=== PATIENT | female | born 1950 | race Caucasian/White ===

== ENCOUNTER 2019-03-23 17:00 | Emergency (ER) | payer MEDICARE, OTHER | END 2019-03-23 21:19 | disposition home or self-care (01) | LOC: ED 17:00 ==

== ENCOUNTER 2019-03-25 14:17 | Emergency (ER) | payer MEDICARE, OTHER ==
--- NOTE | 2019-03-25 15:03 | ERPHSYRPT ---
- History of Present Illness Time Seen by Provider: 03/25/19 14:49 Source: patient Exam Limitations: no limitations Patient Subjective Stated Complaint: pt was leaving home for dr visit. she tripped on braided rug and fell on face. states her r shoulder is painful. and nose hurts. also feels pain in both hips at this time. states that she has previous contractures in her neck and states that her neurologist told her to seek immediate treatment if she ever falls. Triage Nursing Assessment: pt fell at home while getting ready to go to dr appointment Physician History: Pt was getting ready to leave home for a doctor's appointment ( she is getting treated for UTI), when she got stuck in rug tripped over fell an her face, injured her right arm, nose and left ribs, also c/o pain in her neck radiating to her right arm. She denies LOC, severe headaches, dizziness, vomiting or difficulty breathing, she states, she has received tetanus booster last year. Occurred: just prior to arrival Reason for Fall: tripped Injuries/Pain Location: face, neck Loss of Consciousness: no loss of consciousness Quality: aching Severity of Pain-Max: moderate Severity of Pain-Current: moderate Modifying Factors: Improves With: immobilization, movement Associated Symptoms (Fall): neck pain, No shortness of breath, No slurred speech , No trouble walking, No vomiting Allergies/Adverse Reactions: bacitracin [From Neosporin ([id number])] Allergy (Mild, Verified 03/23/19 17: 38) rash swelling bacitracin zinc [From Neosporin ([id number])] Allergy (Mild, Verified 14:45) rash swelling lidocaine Allergy (Mild, Verified 03/25/19 14:45) swelling red and inflamed neomycin sulfate [From Neosporin ([id number])] Allergy (Mild, Verified 14:45) rash swelling Penicillins Allergy (Mild, Verified 03/25/19 14:45) rash itching polymyxin B [From Neosporin ([id number])] Allergy (Mild, Verified 03/25/19 14 :45) rash swelling Sulfa (Sulfonamide Antibiotics) Allergy (Mild, Verified 03/25/19 14:45) rash itching lisinopril Allergy (Verified 03/25/19 14:45) facial swelling omeprazole [From Prilosec] Allergy (Verified 03/25/19 14:45) headache and abdominal cramping omeprazole magnesium [From Prilosec] Allergy (Verified 03/25/19 14:45) headache and abdominal cramping procaine HCl [From Novocain] Allergy (Verified 03/25/19 14:45) swelling red inflamed Home Medications: Albuterol Sulfate [Proair Hfa] 90 mcg IH BID 03/25/19 [History] Alprazolam 0.25 mg [xanAX 0.25 MG] 0.25 mg PO DAILY PRN 03/25/19 [History] Budesonide 0.5 mg/2 ml [Pulmicort 0.5 mg/2 ml Respules] 2.5 mg IN Q4H [History] Duloxetine HCl [Cymbalta] 60 mg PO DAILY 03/25/19 [History] Levothyroxine Sodium 50 Mcg [Synthroid 50 Mcg] 50 mcg PO DAILY 03/25/19 [ History] Losartan Potassium 25 mg PO BID 03/25/19 [History] Metoprolol Tartrate 50 mg [Lopressor 50 MG] 75 mg PO BID 03/25/19 [History ] Montelukast Sodium 10 mg [Singulair 10 MG] 10 mg PO DAILY 03/25/19 [History] Potassium Chloride 10 Meq Tab* [Klor Con 10 MEQ] 10 meq PO BID 03/25/19 [ History] Prednisone 5 mg [Deltasone 5 mg] 5 mg PO 03/25/19 [History] Promethazine HCl 25 mg [Phenergan 25 mg] 25 mg PO PRN 03/25/19 [History] Ranitidine HCl [Zantac] 300 mg PO DAILY 03/25/19 [History] Risedronate Sodium 35 mg [Actonel 35 MG Tablet] 35 mg PO WEEKLY 03/25/19 [ History] Ropinirole HCl 1 mg PO DAILY 03/25/19 [History] Simvastatin 10 mg [Zocor 10MG] 10 mg PO DAILY 03/25/19 [History] Triamcinolone Acetonide [Nasacort] 55 mcg IN BID 03/25/19 [History] Hx Tetanus, Diphtheria Vaccination/Date Given: Yes Hx Influenza Vaccination/Date Given: Yes (04/2013) Hx Pneumococcal Vaccination/Date Given: No - Review of Systems Constitutional: No Symptoms Eyes: No Symptoms Ears, Nose, & Throat: No Symptoms Respiratory: No Symptoms, Other (pain in left lower ribs) Cardiac: No Symptoms Abdominal/Gastrointestinal: No Symptoms Genitourinary Symptoms: No Symptoms Musculoskeletal: Neck Pain, Other (right upper arm pain) Skin: No Symptoms Neurological: No Symptoms All Other Systems: Reviewed and Negative - Past Medical History Pertinent Past Medical History: Yes Neurological History: Peripheral Neuropathy ENT History: Cataracts Cardiac History: Hypertension Respiratory History: Asthma Endocrine Medical History: Adrenal Insufficiency, Hypothyroidism Musculoskeletal History: Osteoarthritis, Osteoporosis GI Medical History: Irritable Bowel History: Renal Disease Psycho-Social History: No Pertinent History Female Reproductive Disorders: No Pertinent History Other Medical History: balance and memory problems due to 5 nerves being compromised in the neck. She is to have a fusion in the future. Seeing a kidney doctor due to B LE edema, stage 3 kidney failure. Heart cath that was fine. - Past Surgical History Past Surgical History: Yes Neuro Surgical History: No Pertinent History Cardiac: No Pertinent History Respiratory: No Pertinent History Gastrointestinal: Cholecystectomy Genitourinary: No Pertinent History Musculoskeletal: Joint Replacement Female Surgical History: Lumpectomy, Tubal Ligation Other Surgical History: excision x 7 to left breast/axilla and 1 to right breast - Social History Smoking Status: Never smoker Exposure to second hand smoke: No Drug Use: none Patient Lives Alone: No - Female History Hx Now: No - Nursing Vital Signs Nursing Vital Signs: Initial Vital Signs Temperature 97.8 F 03/25/19 14:22 Pulse Rate 81 03/25/19 14:22 Respiratory Rate 18 03/25/19 14:22 Blood Pressure 114/75 03/25/19 14:22 O2 Sat by Pulse Oximetry 97 03/25/19 14:22 Pain Scale Pain Intensity 10 - [place] Coma Score Best Eye Response (Su): (4) open spontaneously Best Verbal Response (Su): (5) oriented Best Motor Response ([place]): (6) obeys commands Su Total: 15 - Physical Exam General Appearance: no apparent distress, alert Head Injury: no evidence of injury Eye Exam: PERRL/EOMI, eyes nml inspection ENT Exam: airway nml, other (small, superficial laceration on the right side of the nose bridge, no deformity, nosebleed,) Neck Exam: supple, trachea midline, normal alignment, normal inspection, paraspinous muscle tender, No mid-line tenderness, No carotid bruit, No JVD Respiratory/Chest Exam: chest tenderness (left anterior, lateral, lower ribs, no swelling, ecchymopsis, crepitations or subcutaneous emphysema.), normal breath sounds, No respiratory distress, No ecchymosis, No crepitus, No accessory muscle use, No subcutaneous emphysema Cardiovascular Exam: normal heart sounds, regular rate/rhythm, normal peripheral pulses, No murmur, No edema, No JVD Gastrointestinal Exam: soft, normal bowel sounds, tenderness (LUQ, mild), No distention, No mass, No guarding, No ecchymosis, No rebound, No organomegaly Back Exam: normal inspection, No CVA tenderness, No vertebral tenderness Extremity Exam: normal inspection, other (right lateral humerus tender, no swelling, deformity, good distal pulses and sensation.) Peripheral Pulses: dorsalis-pedis (R): 2+, dorsalis-pedis (L): 2+ Neurologic Exam: alert, oriented x 3, cooperative, normal mood/affect, sensation nml, No motor deficits, No motor weakness Skin Exam: normal color, warm, dry, No rash, No diaphoresis SpO2 Interpretation: normal SpO2: 97 O2 Delivery: Room Air - Course Nursing assessment & vital signs reviewed: Yes EKG Interpreted by Me: RATE (66/min), NORMAL AXIS, NORMAL INTERVALS, NORMAL QRS , Non-specific ST Changes - Radiology Exams Chest X-ray Interpretation: Reviewed by me, Negative Left Ribs X-ray Interpretation: Reviewed by me, Negative Right Humerus X-ray Interpretation: Reviewed by me, Negative - CT Exams Head CT Interpretation: Negative, Tele-radiologist Report Cervical Spine CT Interpretation: Negative, Tele-radiologist Report, Other (straightened lordosis, and DJD) Maxillofacial Bones CT Interpretation: Negative, Tele-radiologist Report Abdomen/Pelvis CT Interpretation: Negative, Tele-radiologist Report Ordered Tests: Active Orders 24 hr Category Date Time Status EKG-ER Only STAT Care 03/25/19 14:53 Active IV Insertion STAT Care 03/25/19 14:53 Active ABDOMEN AND PELVIS W/0 CONTRAS [CT] Stat Exams 03/25/19 16:12 Completed CERVICAL SPINE WO CONTRAST [CT] Stat Exams 03/25/19 14:56 Completed CHEST 2 VIEWS (PA AND LAT) Stat Exams 03/25/19 14:55 Completed FACIAL BONES WO CONTRAST [CT] Stat Exams 03/25/19 14:56 Completed HEAD WITHOUT CONTRAST [CT] Stat Exams 03/25/19 14:56 Completed HUMERUS Stat Exams 03/25/19 14:56 Completed RIBS UNILATERAL Stat Exams 03/25/19 14:55 Completed CBC W DIFF Stat Lab 03/25/19 15:10 Completed CK-Creatinine Phosphokinase Stat Lab 03/25/19 15:10 Completed CMP Stat Lab 03/25/19 15:10 Completed CULTURE,URINE Stat Lab 03/25/19 17:00 Received Manual Differential NC Stat Lab 03/25/19 15:10 Completed PROTIME WITH INR Stat Lab 03/25/19 15:10 Completed PTT Stat Lab 03/25/19 15:10 Completed TROPONIN Q3H Lab 03/25/19 15:10 Completed TROPONIN Q3H Lab 03/25/19 18:00 Ordered TROPONIN Q3H Lab 03/25/19 21:00 Ordered TROPONIN Q3H Lab 03/26/19 00:00 Ordered TROPONIN Q3H Lab 03/26/19 03:00 Ordered UA W/RFX UR CULTURE Stat Lab 03/25/19 17:00 Completed Medication Summary Discontinued Medications Generic Name Dose Route Start Last Admin Trade Name Freq PRN Reason Stop Dose Admin Hydrocodone Bitart/Acetaminophen 1 tab 03/25/19 17:45 [place] 7.5/325 Mg Tab PO 03/25/19 17:46 STAT ONE Carisoprodol 350 mg 03/25/19 17:47 Soma 350 Mg PO 03/25/19 17:48 STAT ONE Lab/Rad Data: Laboratory Result Diagrams 03/25/19 15:10 03/25/19 15:10 Laboratory Results 03/25/19 03/25/19 03/25/19 Range/Units 17:00 15:10 15:10 WBC (4.0-10.5) K/mm3 RBC (4.1-5.4) M/mm3 Hgb (12.0-16.0) gm/dl Hct (35-47) % MCV (78-100) fl MCH (26-32) pg MCHC (32-36) g/dl RDW (11.5-14.0) % Plt Count (150-450) K/mm3 MPV (6-9.5) fl Segmented Neutrophils (36.0-66.0) % Band Neutrophils (0.0-2.0) % Lymphocytes (Manual) (24-44) % Monocytes (Manual) (0.0-12.0) % Eosinophils (Manual) (0.00-3.0) % Platelet Estimate (NORMAL) RBC Morphology PT 12.1 (9.95-12.35) SECONDS INR 1.07 (0.8-3.0) APTT 28.9 (25.3-37.0) SECONDS Sodium (137-145) mmol/L Potassium (3.5-5.1) mmol/L Chloride (98-107) mmol/L Carbon Dioxide (22-30) mmol/L Anion Gap (5-15) MEQ/L BUN (7-17) mg/dL Creatinine (0.52-1.04) mg/dL Estimated GFR ML/MIN Glucose (74-106) mg/dL Calcium (8.4-10.2) mg/dL Total Bilirubin (0.2-1.3) mg/dL AST (14-36) U/L ALT (0-35) U/L Alkaline Phosphatase (38-126) U/L Creatine Kinase (30-135) U/L Troponin I < 0.012 (0.000-0.034) ng/mL Serum Total Protein (6.3-8.2) g/dL Albumin (3.5-5.0) g/dL Urine Color YELLOW (YELLOW) Urine Appearance SLIGHTLY CLOUDY (CLEAR) Urine pH 5.0 (5-6) Ur Specific [place] 1.020 (1.005-1.025) Urine Protein NEGATIVE (Negative) Urine Ketones NEGATIVE (NEGATIVE) Urine Blood NEGATIVE (0-5) [place]/ul Urine Nitrite NEGATIVE (NEGATIVE) Urine Bilirubin NEGATIVE (NEGATIVE) Urine Urobilinogen NEGATIVE (0-1) mg/dL Ur Leukocyte Esterase SMALL (NEGATIVE) Urine WBC (Auto) 16-25 (0-5) /HPF Urine RBC (Auto) 3-5 (0-2) /HPF U Hyaline Cast (Auto) 11-25 (0-2) /LPF U Epithel Cells (Auto) RARE (FEW) /HPF Urine Bacteria (Auto) RARE (NEGATIVE) /HPF Urine Mucus (Auto) SLIGHT (NEGATIVE) /HPF Urine Culture Reflexed YES (NO) Urine Glucose NEGATIVE (NEGATIVE) mg/dL 03/25/19 03/25/19 Range/Units 15:10 15:10 WBC 5.0 (4.0-10.5) K/mm3 RBC 3.57 L (4.1-5.4) M/mm3 Hgb 11.3 L (12.0-16.0) gm/dl Hct 34.5 L (35-47) % MCV 96.6 (78-100) fl MCH 31.6 (26-32) pg MCHC 32.8 (32-36) g/dl RDW 13.2 (11.5-14.0) % Plt Count 190 (150-450) K/mm3 MPV 10.1 H (6-9.5) fl Segmented Neutrophils 51 (36.0-66.0) % Band Neutrophils 5 H (0.0-2.0) % Lymphocytes (Manual) 18 L (24-44) % Monocytes (Manual) 20 H (0.0-12.0) % Eosinophils (Manual) 6 H (0.00-3.0) % Platelet Estimate NORMAL (NORMAL) RBC Morphology NORMAL PT (9.95-12.35) SECONDS INR (0.8-3.0) APTT (25.3-37.0) SECONDS Sodium 136 L (137-145) mmol/L Potassium 4.2 (3.5-5.1) mmol/L Chloride 106 (98-107) mmol/L Carbon Dioxide 22 (22-30) mmol/L Anion Gap 12.4 (5-15) MEQ/L BUN 17 (7-17) mg/dL Creatinine 1.59 H (0.52-1.04) mg/dL Estimated GFR 34.1 ML/MIN Glucose 94 (74-106) mg/dL Calcium 9.2 (8.4-10.2) mg/dL Total Bilirubin 0.50 (0.2-1.3) mg/dL AST 36 (14-36) U/L ALT 25 (0-35) U/L Alkaline Phosphatase 179 H (38-126) U/L Creatine Kinase 33 (30-135) U/L Troponin I (0.000-0.034) ng/mL Serum Total Protein 5.9 L (6.3-8.2) g/dL Albumin 3.2 L (3.5-5.0) g/dL Urine Color (YELLOW) Urine Appearance (CLEAR) Urine pH (5-6) Ur Specific [place] (1.005-1.025) Urine Protein (Negative) Urine Ketones (NEGATIVE) Urine Blood (0-5) [place]/ul Urine Nitrite (NEGATIVE) Urine Bilirubin (NEGATIVE) Urine Urobilinogen (0-1) mg/dL Ur Leukocyte Esterase (NEGATIVE) Urine WBC (Auto) (0-5) /HPF Urine RBC (Auto) (0-2) /HPF U Hyaline Cast (Auto) (0-2) /LPF U Epithel Cells (Auto) (FEW) /HPF Urine Bacteria (Auto) (NEGATIVE) /HPF Urine Mucus (Auto) (NEGATIVE) /HPF Urine Culture Reflexed (NO) Urine Glucose (NEGATIVE) mg/dL - Progress Progress: improved Progress Note: 03/25/19 17:59 Pt has been stable, reviewed all her results and discussed, she has UTI, which has been treated ( took the first pill), otherwise no acute changes, she is being discharged to rest x 2-3 days, apply moist heat to her neck and follow up with her physician in 2-3 days. Counseled pt/family regarding: lab results, diagnosis, need for follow-up, rad results - Departure Departure Disposition: Home Clinical Impression: Cervical strain, acute Qualifiers: Encounter type: initial encounter Qualified Code(s): S16.1XXA - Strain of muscle, fascia and tendon at neck level, initial encounter Contusion, arm, upper Qualifiers: Encounter type: initial encounter Laterality: right Qualified Code(s): S40.021A - Contusion of right upper arm, initial encounter Contusion of rib on left side Qualifiers: Encounter type: initial encounter Qualified Code(s): S20.212A - Contusion of left front wall of thorax, initial encounter Condition: Stable Critical Care Time: No Referrals: DANIELA LAINEZ [Primary Care Provider] - Instructions: Contusion (DC), Cervical Muscle Strain (DC), Closed Head Injury ( DC), Bruised Rib (DC) Additional Instructions: Rest x 2-3 days, apply moist heat to painful muscles, neck, follow up with her physician in 2-3 days, return if severe headaches, vomiting, lethargy, confusion, or severe shortness of breath, fever> 101 F! Prescriptions: Carisoprodol 350 mg [Soma 350 mg] 350 mg PO QID #20 tablet
[2019-03-25 15:15] LABS: Hematocrit 34.5 % (35-47); Hemoglobin 11.3 gm/dl (12.0-16.0); Mean Cell Volume 96.6 fl (78-100); Mean Corpuscular Hgb Concent. 32.8 g/dl (32-36); Mean Platelet Volume 10.1 fl (6-9.5); Platelet Count 190 K/mm3 (150-450); Red Blood Count 3.57 M/mm3 (4.1-5.4); Red Cell Distribution Width 13.2 % (11.5-14.0)
[2019-03-25 15:18] LABS: Mean Corpuscular Hemoglobin 31.6 pg (26-32)
[2019-03-25 15:24] LABS: INR 1.07 (0.8-3.0); PROTIME 12.1 SECONDS (9.95-12.35)
[2019-03-25 15:25] LABS: PTT 28.9 SECONDS (25.3-37.0)
[2019-03-25 15:34] LABS: ALBUMIN 3.2 g/dL (3.5-5.0); ANION GAP 12.4 MEQ/L (5-15); BILIRUBIN,TOTAL 0.5 mg/dL (0.2-1.3); Calcium 9.2 mg/dL (8.4-10.2); Creatinine 1 1.59 mg/dL (0.52-1.04); Total Protein 5.9 g/dL (6.3-8.2)
[2019-03-25 15:36] LABS: Potassium 4.2 mmol/L (3.5-5.1)
--- NOTE | 2019-03-25 16:26 | XRAY ---
Indication: Pain following fall. Multiple contiguous axial images obtained through the head without contrast. Comparison: None Normal appearing brain parenchyma, ventricles, and bony calvarium. Visualized paranasal sinuses and mastoid air cells are clear. Impression: Normal CT head without contrast exam. CTDI 49.85
--- NOTE | 2019-03-25 16:30 | XRAY ---
Indication: Pain following fall. Multiple contiguous axial images obtained through the cervical spine. Sagittal and coronal reformatted images obtained. Comparison: None Axial images negative for acute fracture, suspicious bony lesions, or spinal canal stenosis. Mild/moderate multilevel degenerative endplate spurring. Also mild/moderate multilevel degenerative facet hypertrophy, left greater than right. Sagittal and coronal reformatted images demonstrates cervical lordotic straightening, positional versus paraspinal spasm. C6-C7 fusion. 2-3 mm C2 and C7 anterolisthesis. No acute compression fracture or jumped facet. Normal-appearing craniocervical junction. Visualized noncontrasted soft tissues demonstrates mild carotid calcifications bilaterally. Impression: 1. Cervical lordotic straightening, positional versus paraspinal spasm. 2. Multilevel degenerative spondylosis including grade 1 C2 and C7 spondylolisthesis. 3. Negative acute fracture. CTDI 61.03
--- NOTE | 2019-03-25 16:34 | XRAY ---
Indication: Pain following fall. Forehead injury. Multiple contiguous axial images obtained through the facial bones. Sagittal and coronal reformatted images obtained. Comparison: None A few bilateral dental amalgams produces beam artifact limiting these levels. No acute fracture, suspicious bone lesions, or right hepatic foreign body. Orbits including roof, monge, and floors are intact. Paranasal sinuses and nasal passages are clear. Visualized noncontrasted soft tissues unremarkable. CT head and CT cervical spine reported separately. Impression: Negative CT facial bones. CTDI 59.47
--- NOTE | 2019-03-25 16:40 | XRAY ---
Indication: Pain following fall. Comparison: None 2 views of the left ribs demonstrates old anterior lateral 6th rib fracture, mild left AC degenerative arthropathy, small left humeral head bone cyst, moderate/advanced multilevel thoracolumbar degenerative spondylosis, and moderate levorotoscoliosis centered at T12. No other bony, articular, or soft tissue abnormalities. Impression: Nonacute left ribs with chronic features.
--- NOTE | 2019-03-25 16:40 | XRAY ---
Indication: Left rib/shoulder pain following fall. Comparison: April 11, 2017. PA/lateral chest again demonstrates normal heart and lungs. Bony thorax intact again with degenerative changes throughout the spine and old left 6 rib fracture. Impression: Nonacute chest with chronic features.
--- NOTE | 2019-03-25 16:42 | XRAY ---
Indication: Pain following fall. Comparison: None 2 views of the right humerus demonstrates mild AC degenerative arthropathy and old 5/6 rib fractures. No other bony, articular, or soft tissue abnormalities.
--- NOTE | 2019-03-25 17:09 | XRAY ---
Indication: Pain following fall. UTI. Dizziness. Multiple contiguous axial images obtained through the abdomen and pelvis without contrast as ordered. Comparison: None Lung bases demonstrates mild bibasilar dependent atelectasis. No infiltrates or effusion. Heart is not enlarged. Small hiatal hernia. Noncontrasted stomach and bowel loops appear nonobstructed. Mild sigmoid diverticulosis without diverticulitis. Patient reports appendectomy and cholecystectomy. No free fluid/air. 1 cm hepatic cyst adjacent to the falciform ligament. Remaining liver, pancreas, spleen, adrenal glands, kidneys, ureters, bladder, and uterus appear unremarkable for noncontrast exam. Mild aortic calcifications without AAA. Osseous structures intact with advanced multilevel thoracolumbar degenerative spondylosis and mild levoscoliosis centered at thoracolumbar junction. Impression: 1. Sigmoid diverticulosis, hepatic cyst, and small hiatal hernia. 2. No acute intra-abdominal/pelvic abnormalities on this noncontrast exam. 3. Advanced multilevel degenerative spondylosis and mild scoliosis. CTDI 28.07
[2019-03-25 17:18] LABS: Appearance SLIGHTLY CLOUDY (CLEAR); Bacteria RARE /HPF (NEGATIVE); Bilirubin NEGATIVE (NEGATIVE); Blood NEGATIVE Ery/ul (0-5); Epithelial Cells RARE /HPF (FEW); Glucose NEGATIVE (NEGATIVE); Ketones NEGATIVE (NEGATIVE); Leukocyte Esterase SMALL (NEGATIVE); Mucus SLIGHT /HPF (NEGATIVE); Nitrite NEGATIVE (NEGATIVE); Protein,Urine Dip NEGATIVE (Negative); Urobilinogen NEGATIVE mg/dL (0-1)
[2019-03-25] MEDS ORDERED: NORCO 7.5/325 MG TAB PO ONE (17:45)
[2019-03-25 17:46] LABS: BAND 5 % (0.0-2.0); Eosinophil 6 % (0.00-3.0); Lymphocytes 18 % (24-44); Monocyte 20 % (0.0-12.0); Neutrophils 51 % (36.0-66.0); Platelet Estimate NORMAL (NORMAL); Total Cells Counted 100
[2019-03-25] MEDS ORDERED: SOMA 350 MG PO ONE (17:47)
[2019-03-25 18:13] VITALS: BP 146/72; PULSE 72; O2SAT 98
== END 2019-03-25 18:32 | disposition home or self-care (01) ==
LOC: ED 14:17
DX: S16.1XXA Strain of muscle, fascia and tendon at neck level, initial encounter (principal); M54.2 Cervicalgia; S40.021A Contusion of right upper arm, initial encounter; M79.621 Pain in right upper arm; S20.212A Contusion of left front wall of thorax, initial encounter; R07.81 Pleurodynia; N39.0 Urinary tract infection, site not specified; W01.10XA Fall on same level from slipping, tripping and stumbling with subsequent striking against unspecified object, initial encounter; Y93.01 Activity, walking, marching and hiking; Y92.009 Unspecified place in unspecified non-institutional (private) residence as the place of occurrence of the external cause; Z79.899 Other long term (current) drug therapy; G62.9 Polyneuropathy, unspecified; E03.9 Hypothyroidism, unspecified; M81.0 Age-related osteoporosis without current pathological fracture; I12.9 Hypertensive chronic kidney disease with stage 1 through stage 4 chronic kidney disease, or unspecified chronic kidney disease; N18.3 Chronic kidney disease, stage 3 (moderate)
CPT/HCPCS: 36000; 36415; 70450; 70486; 71046; 71100; 72125; 73060; 74176; 80053; 81001; 82550; 84484; 85025; 85610; 85730; 87086; 93005; 99284; A9270-GY

== ENCOUNTER 2020-11-25 13:31 | Emergency (ER) | payer MEDICARE, OTHER ==
--- NOTE | 2020-11-25 13:56 | ERPHSYRPT ---
- History of Present Illness Time Seen by Provider: 11/25/20 13:56 Source: patient Exam Limitations: no limitations Patient Subjective Stated Complaint: pt here for confusion, she was sent over from PT today, sh might have taken an extra Gabapentin, Triage Nursing Assessment: pt alert, resp easy, skin w/dp. abd soft , face mask in place, Physician History: This is a 70-year-old obese white female who has a history of hypertension, gastroesophageal reflux disease, hypothyroidism, asthma, adrenal insufficiency, peripheral neuropathy and osteoarthritis who presents today via wheelchair from the physical therapy department for confusion issues. 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 Patient drove from her home to her physical therapy appointment on time. Patient did state that she might have accidentally taken an extra gabapentin this morning. Patient has chronic pain issues. Nurses in the emergency department state that this patient is at her usual baseline neurologic and psychiatric state. They know her very well. Patient denies headache. Patient denies chest pain. Patient denies shortness of breath. She has no abdominal pain. Patient was able to ambulate well from her emergency department room to the bathroom to obtain a urine specimen for us. Timing/Duration: today Severity: mild Character of Deficits: none Deficits: no difficulties Baseline/Normal Cognition: alert oriented x 3 Current Cognition: alert oriented x 3 Baseline Gait: uses cane Associated Symptoms: confusion (Chronic), trouble walking (Chronic balance issues. Uses a cane to walk) Allergies/Adverse Reactions: bacitracin [From Neosporin ([id number])] Allergy (Mild, Verified 11/25/20 13:47) rash swelling bacitracin zinc [From Neosporin ([id number])] Allergy (Mild, Verified 11/25/20 13:47) rash swelling lidocaine Allergy (Mild, Verified 11/25/20 13:47) swelling red and inflamed neomycin sulfate [From Neosporin ([id number])] Allergy (Mild, Verified 11/25/20 13:47) rash swelling Penicillins Allergy (Mild, Verified 11/25/20 13:47) rash itching polymyxin B [From Neosporin ([id number])] Allergy (Mild, Verified 11/25/20 13:47) rash swelling Sulfa (Sulfonamide Antibiotics) Allergy (Mild, Verified 11/25/20 13:47) rash itching lisinopril Allergy (Verified 11/25/20 13:47) facial swelling omeprazole [From Prilosec] Allergy (Verified 11/25/20 13:47) headache and abdominal cramping omeprazole magnesium [From Prilosec] Allergy (Verified 11/25/20 13:47) headache and abdominal cramping procaine HCl [From Novocain] Allergy (Verified 11/25/20 13:47) swelling red inflamed Home Medications: ALPRAZolam 0.25 MG [xanAX 0.25 MG] 0.25 mg PO DAILY PRN 03/25/19 [History] Albuterol Sulfate [Proair Hfa] 90 mcg IH BID 03/25/19 [History] Budesonide 0.5 mg/2 ml [Pulmicort 0.5 mg/2 ml Respules] 2.5 mg IN Q4H 03/25/19 [History] Duloxetine HCl [Cymbalta] 60 mg PO DAILY 03/25/19 [History] Levothyroxine Sodium 50 Mcg [Synthroid 50 Mcg] 50 mcg PO DAILY 03/25/19 [History] Losartan Potassium 25 mg PO BID 03/25/19 [History] Metoprolol Tartrate 50 mg [Lopressor 50 MG] 75 mg PO BID 03/25/19 [History] Montelukast Sodium 10 mg [Singulair 10 MG] 10 mg PO DAILY 03/25/19 [History] Potassium Chloride 10 Meq Tab* [Klor Con 10 MEQ] 10 meq PO BID 03/25/19 [History] Prednisone 5 mg [Deltasone 5 mg] 5 mg PO DAILY 03/25/19 [History] Promethazine HCl 25 mg [Phenergan 25 mg] 25 mg PO TID 03/25/19 [History] Risedronate Sodium 35 mg [Actonel 35 MG Tablet] 35 mg PO WEEKLY 03/25/19 [History] Ropinirole HCl 1 mg PO DAILY 03/25/19 [History] Simvastatin 10 mg [Zocor 10MG] 10 mg PO DAILY 03/25/19 [History] Triamcinolone Acetonide [Nasacort] 55 mcg IN BID 03/25/19 [History] Hx Tetanus, Diphtheria Vaccination/Date Given: Yes Hx Influenza Vaccination/Date Given: Yes Hx Pneumococcal Vaccination/Date Given: Yes Immunizations Up to Date: Yes Travel Risk - International Travel Have you traveled outside of the country in past 3 weeks: No - Coronavirus Screening Are you exhibiting any of the following symptoms?: No Close contact with a COVID-19 positive Pt in past 14-21 Days: No - Vaccine Status Have you recieved a Covid-19 vaccination: Yes 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 - Review of Systems Constitutional: No Symptoms Eyes: No Symptoms Ears, Nose, & Throat: No Symptoms Respiratory: No Symptoms Cardiac: No Symptoms Abdominal/Gastrointestinal: No Symptoms Genitourinary Symptoms: No Symptoms Musculoskeletal: No Symptoms Skin: No Symptoms Neurological: No Symptoms Psychological: No Symptoms Endocrine: No Symptoms Hematologic/Lymphatic: No Symptoms Immunological/Allergic: No Symptoms All Other Systems: Reviewed and Negative - Past Medical History Pertinent Past Medical History: Yes Neurological History: Peripheral Neuropathy ENT History: Cataracts Cardiac History: Hypertension, Other Respiratory History: Asthma Endocrine Medical History: Hypothyroidism Musculoskeletal History: Osteoarthritis, Osteoporosis GI Medical History: Irritable Bowel History: Renal Disease Psycho-Social History: No Pertinent History Female Reproductive Disorders: No Pertinent History Other Medical History: Poor distal circulation; LE and UE - Past Surgical History Past Surgical History: Yes Neuro Surgical History: No Pertinent History Cardiac: No Pertinent History Respiratory: No Pertinent History Gastrointestinal: Cholecystectomy Genitourinary: No Pertinent History Musculoskeletal: Joint Replacement Female Surgical History: Lumpectomy, Tubal Ligation Other Surgical History: excision x 7 to left breast/axilla and 1 to right breast - Social History Smoking Status: Never smoker Exposure to second hand smoke: No Drug Use: none Patient Lives Alone: Yes - Female History Hx Last Menstrual Period: post - Nursing Vital Signs Nursing Vital Signs: Initial Vital Signs Temperature 98.1 F 11/25/20 13:41 Pulse Rate 74 11/25/20 13:41 Respiratory Rate 18 11/25/20 13:41 Blood Pressure 164/87 11/25/20 13:41 O2 Sat by Pulse Oximetry 97 11/25/20 13:41 Pain Scale Pain Intensity 7 - Mouthcard Coma Scale Best Eye Response (Mouthcard): (4) open spontaneously Best Verbal Response (Su): (5) oriented Best Motor Response (Mouthcard): (6) obeys commands Su Total: 15 - Physical Exam General Appearance: no apparent distress, alert, obese Eye Exam: bilateral eye: normal inspection, PERRL, EOMI Ears, Nose, Throat Exam: normal ENT inspection, moist mucous membranes Neck Exam: normal inspection, non-tender, supple, full range of motion Respiratory: normal breath sounds, lungs clear, airway intact, No chest tenderness, No respiratory distress Cardiovascular: regular rate/rhythm, normal heart sounds, normal peripheral pulses Gastrointestinal: soft, normal bowel sounds, No tenderness Pelvic Exam: not done Rectal Exam: not done Back Exam: normal inspection, normal range of motion, No CVA tenderness, No vertebral tenderness Extremity Exam: normal inspection, normal range of motion, No pelvis stable Mental Status: alert, oriented x 3, 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 engineer Exam: normal hearing, normal speech, PERRL Coordination/Gait: normal finger to nose, normal gait, normal cerebellar function Motor/Sensory: no motor deficit, no sensory deficit, no pronator drift Skin Exam: normal color, warm, dry SpO2 Interpretation: normal SpO2: 97 O2 Delivery: Room Air Ordered Tests: Active Orders 24 hr Category Date Time Status HEAD WITHOUT CONTRAST [CT] Stat Exams 11/25/20 14:29 Completed CBC W DIFF Stat Lab 11/25/20 14:10 Completed CMP Stat Lab 11/25/20 14:10 Completed T4 (Thyroxine) Stat Lab 11/25/20 14:10 Completed TSH [TSH, 3RD Generation] Stat Lab 11/25/20 14:10 Completed UA W/RFX UR CULTURE Stat Lab 11/25/20 14:38 Completed Lab/Rad Data: Laboratory Result Diagrams 11/25/20 14:10 11/25/20 14:10 Laboratory Results 11/25/20 11/25/20 11/25/20 Range/Units 15:10 14:38 14:10 WBC (4.0-10.5) K/mm3 RBC (4.1-5.4) M/mm3 Hgb (12.0-16.0) gm/dl Hct (35-47) % MCV (78-100) fl MCH (26-32) pg MCHC (32-36) g/dl RDW (11.5-14.0) % Plt Count (150-450) K/mm3 MPV (7.5-11.0) fl Gran % (36.0-66.0) % Eos # (Auto) (0-0.5) Absolute Lymphs (auto) (1.0-4.6) Absolute Monos (auto) (0.0-1.3) Lymphocytes % (24.0-44.0) % Monocytes % (0.0-12.0) % Eosinophils % (0.00-5.0) % Basophils % (0.0-0.4) % Absolute Granulocytes (1.4-6.9) Basophils # (0-0.4) Sodium (137-145) mmol/L Potassium (3.5-5.1) mmol/L Chloride (98-107) mmol/L Carbon Dioxide (22-30) mmol/L Anion Gap (5-15) MEQ/L BUN (7-17) mg/dL Creatinine (0.52-1.04) mg/dL Estimated GFR ML/MIN Glucose (74-106) mg/dL Calcium (8.4-10.2) mg/dL Total Bilirubin (0.2-1.3) mg/dL AST (14-36) U/L ALT (0-35) U/L Alkaline Phosphatase (38-126) U/L Ammonia < 9 L (9-30) umol/L Serum Total Protein (6.3-8.2) g/dL Albumin (3.5-5.0) g/dL Thyroxine (T4) 5.89 (5.53-10.96) ug/dL TSH 3rd Generation (0.47-4.68) mIU/L Urine Color YELLOW (YELLOW) Urine Appearance CLOUDY (CLEAR) Urine pH 5.0 (5-6) Ur Specific [place] 1.023 (1.005-1.025) Urine Protein NEGATIVE (Negative) Urine Ketones NEGATIVE (NEGATIVE) Urine Blood NEGATIVE (0-5) Mayank/ul Urine Nitrite NEGATIVE (NEGATIVE) Urine Bilirubin NEGATIVE (NEGATIVE) Urine Urobilinogen NEGATIVE (0-1) mg/dL Ur Leukocyte Esterase SMALL (NEGATIVE) Urine WBC (Auto) 6-10 (0-5) /HPF Urine RBC (Auto) NONE (0-2) /HPF U Hyaline Cast (Auto) 6-10 (0-2) /LPF U Epithel Cells (Auto) MANY (FEW) /HPF Urine Bacteria (Auto) FEW (NEGATIVE) /HPF Urine Mucus (Auto) SLIGHT (NEGATIVE) /HPF Urine Culture Reflexed NO (NO) Urine Glucose NEGATIVE (NEGATIVE) mg/dL 11/25/20 11/25/20 11/25/20 Range/Units 14:10 14:10 14:10 WBC 7.0 (4.0-10.5) K/mm3 RBC 3.84 L (4.1-5.4) M/mm3 Hgb 11.2 L (12.0-16.0) gm/dl Hct 37.0 (35-47) % MCV 96.4 (78-100) fl MCH 29.2 (26-32) pg MCHC 30.3 L (32-36) g/dl RDW 13.9 (11.5-14.0) % Plt Count 189 (150-450) K/mm3 MPV 10.3 (7.5-11.0) fl Gran % 60.1 (36.0-66.0) % Eos # (Auto) 0.37 (0-0.5) Absolute Lymphs (auto) 1.54 (1.0-4.6) Absolute Monos (auto) 0.84 (0.0-1.3) Lymphocytes % 22.2 L (24.0-44.0) % Monocytes % 12.1 H (0.0-12.0) % Eosinophils % 5.3 H (0.00-5.0) % Basophils % 0.3 (0.0-0.4) % Absolute Granulocytes 4.18 (1.4-6.9) Basophils # 0.02 (0-0.4) Sodium 138 (137-145) mmol/L Potassium 4.0 (3.5-5.1) mmol/L Chloride 102 (98-107) mmol/L Carbon Dioxide 31 H (22-30) mmol/L Anion Gap 8.6 (5-15) MEQ/L BUN 27 H (7-17) mg/dL Creatinine 1.46 H (0.52-1.04) mg/dL Estimated GFR 37.4 ML/MIN Glucose 78 (74-106) mg/dL Calcium 9.8 (8.4-10.2) mg/dL Total Bilirubin 0.50 (0.2-1.3) mg/dL AST 35 (14-36) U/L ALT 26 (0-35) U/L Alkaline Phosphatase 68 (38-126) U/L Ammonia (9-30) umol/L Serum Total Protein 6.4 (6.3-8.2) g/dL Albumin 3.8 (3.5-5.0) g/dL Thyroxine (T4) (5.53-10.96) ug/dL TSH 3rd Generation 1.590 (0.47-4.68) mIU/L Urine Color (YELLOW) Urine Appearance (CLEAR) Urine pH (5-6) Ur Specific [place] (1.005-1.025) Urine Protein (Negative) Urine Ketones (NEGATIVE) Urine Blood (0-5) Mayank/ul Urine Nitrite (NEGATIVE) Urine Bilirubin (NEGATIVE) Urine Urobilinogen (0-1) mg/dL Ur Leukocyte Esterase (NEGATIVE) Urine WBC (Auto) (0-5) /HPF Urine RBC (Auto) (0-2) /HPF U Hyaline Cast (Auto) (0-2) /LPF U Epithel Cells (Auto) (FEW) /HPF Urine Bacteria (Auto) (NEGATIVE) /HPF Urine Mucus (Auto) (NEGATIVE) /HPF Urine Culture Reflexed (NO) Urine Glucose (NEGATIVE) mg/dL - Progress Progress: improved, re-examined Progress Note: 11/25/20 15:40 CAT scan of the head without contrast shows a nonacute senile brain. 11/25/20 16:09 At the time of discharge, the patient is completely alert and oriented and at her neurologic and psychologic baseline.. Patient thinks that she may have accidentally taken an extra gabapentin this morning causing her symptoms. She is stable for discharge. Counseled pt/family regarding: lab results, diagnosis, need for follow-up, rad results - Departure Departure Disposition: Home Clinical Impression: Urinary tract infection, Confusion Condition: Stable Critical Care Time: No Referrals: DANIELA LAINEZ [Primary Care Provider] - Additional Instructions: Drink plenty of fluids. Take all your medications as prescribed. Follow-up with your primary care physician on an as-needed basis. Prescriptions: Ciprofloxacin [Cipro 500 MG] 500 mg PO BID #14 tablet
[2020-11-25 14:37] LABS: Absolute Neutrophil Ct (ANC) 4.18 (1.4-6.9); BASOPHIL % 0.3 % (0.0-0.4); Basophil (Absolute #) 0.02 (0-0.4); Eosinophil % 5.3 % (0.00-5.0); Eosinophil (Absolute #) 0.37 (0-0.5); Hemoglobin 11.2 gm/dl (12.0-16.0); Lymphocyte (Absolute #) 1.54 (1.0-4.6); Lymphocytes % 22.2 % (24.0-44.0); Mean Cell Volume 96.4 fl (78-100); Mean Corpuscular Hemoglobin 29.2 pg (26-32); Mean Corpuscular Hgb Concent. 30.3 g/dl (32-36); Mean Platelet Volume 10.3 fl (7.5-11.0); Monocyte (Absolute #) 0.84 (0.0-1.3); Monocytes % 12.1 % (0.0-12.0); Neutrophil % 60.1 % (36.0-66.0); Platelet Count 189 K/mm3 (150-450); Red Blood Count 3.84 M/mm3 (4.1-5.4); Red Cell Distribution Width 13.9 % (11.5-14.0)
[2020-11-25 14:46] LABS: ALBUMIN 3.8 g/dL (3.5-5.0); ANION GAP 8.6 MEQ/L (5-15); BILIRUBIN,TOTAL 0.5 mg/dL (0.2-1.3); Calcium 9.8 mg/dL (8.4-10.2); Creatinine 1 1.46 mg/dL (0.52-1.04); EST GLOMERULAR FILTRATION RATE 37.4 ML/MIN; Total Protein 6.4 g/dL (6.3-8.2)
[2020-11-25 15:11] VITALS: O2SAT 97
--- NOTE | 2020-11-25 15:30 | XRAY ---
Indication: Confusion. Multiple contiguous axial images obtained through the head without contrast. Comparison: March 25, 2019. Age-appropriate global atrophy and minimal periventricular degenerative micro-ischemia. No acute intracranial hemorrhage, abnormal extra-axial fluid collection, or mass effect. Fourth ventricle is midline without hydrocephalus. Gonzalez-white matter differentiation maintained. Bony calvarium intact. Visualized paranasal sinuses and mastoid air cells are clear. Impression: Continued nonacute senile brain.
[2020-11-25 15:40] LABS: Appearance CLOUDY (CLEAR); Bacteria FEW /HPF (NEGATIVE); Bilirubin NEGATIVE (NEGATIVE); Blood NEGATIVE Ery/ul (0-5); Epithelial Cells MANY /HPF (FEW); Glucose NEGATIVE (NEGATIVE); Ketones NEGATIVE (NEGATIVE); Leukocyte Esterase SMALL (NEGATIVE); Mucus SLIGHT /HPF (NEGATIVE); Nitrite NEGATIVE (NEGATIVE); Protein,Urine Dip NEGATIVE (Negative); Specific Gravity 1.023 (1.005-1.025); Urobilinogen NEGATIVE mg/dL (0-1)
[2020-11-25] MEDS ORDERED: Levofloxacin 500 MG Tablet PO ONE (16:10)
[2020-11-25 16:13] VITALS: BP 166/97; PULSE 64
[2020-11-25] MEDS ORDERED: Levofloxacin 500 MG Tablet ONE (16:14)
== END 2020-11-25 16:24 | disposition home or self-care (01) ==
LOC: ED 13:31
DX: N39.0 Urinary tract infection, site not specified (principal); R41.0 Disorientation, unspecified; I10 Essential (primary) hypertension; K21.9 Gastro-esophageal reflux disease without esophagitis; E03.9 Hypothyroidism, unspecified; J45.909 Unspecified asthma, uncomplicated; E27.40 Unspecified adrenocortical insufficiency; G62.9 Polyneuropathy, unspecified; M19.90 Unspecified osteoarthritis, unspecified site; Z79.899 Other long term (current) drug therapy
CPT/HCPCS: 36000; 36415; 70450; 80053; 81001; 82140; 84436; 84443; 85025; 99284; A9270-GY

== ENCOUNTER 2022-03-27 11:05 | Emergency (ER) | payer MEDICARE, OTHER ==
[2022-03-27] MEDS ORDERED: TORAdol 30 mg Injection IM ONE (11:28)
[2022-03-27] MEDS ORDERED: TORAdol 30 mg Injection ONE (11:32)
--- NOTE | 2022-03-27 11:33 | ERPHSYRPT ---
- History of Present Illness Source: patient Exam Limitations: no limitations Patient Subjective Stated Complaint: Neck pain Triage Nursing Assessment: Patient ambulated back to ED per walker and transferred to bed per self. Patient A+OX 3. Patient's skin pink, warm and dry. Patient complains of right sided neck pain that started miles after painting. Patient states every time she raises her arms she has a "shooting pain" feeling up into her ear. Patient complains of pain 4/10. Physician History: 71 yo WF w cervical pain x 12days. Pt states that pain started after helping paint a garage. Pain is 6/10, sharp, and worse w neck movement. She denies incontinence of stool/urine/upper extremity-lower extremity weakness/chest pain/dyspnea. Pt denies acute traumatic injury. She has seen her PCP about this pain and has been referred to her neurologist.Pt is on Alta daily for chronic pain. Timing/Duration: other (12 days) Severity: moderate Modifying Factors: Improves With: movement Associated Symptoms: No nausea, No vomiting, No abdominal pain, No shortness of breath, No heartburn, No diaphoresis, No cough, No chills, No chest pain, No fever, No headaches, No loss of appetite, No malaise, No rash, No syncope, No seizure, No weakness Allergies/Adverse Reactions: bacitracin [From Neosporin ([id number])] Allergy (Mild, Verified 03/27/22 11:15) rash swelling bacitracin zinc [From Neosporin ([id number]-lth-[id number])] Allergy (Mild, Verified 03/27/22 11:15) rash swelling lidocaine Allergy (Mild, Verified 03/27/22 11:15) swelling red and inflamed neomycin sulfate [From Neosporin ([id number]-[id number])] Allergy (Mild, Verified 03/27/22 11:15) rash swelling Penicillins Allergy (Mild, Verified 03/27/22 11:15) rash itching polymyxin B [From Neosporin ([id number]-[id number])] Allergy (Mild, Verified 03/27/22 11:15) rash swelling Sulfa (Sulfonamide Antibiotics) Allergy (Mild, Verified 03/27/22 11:15) rash itching lisinopril Allergy (Verified 03/27/22 11:15) facial swelling omeprazole [From Prilosec] Allergy (Verified 03/27/22 11:15) headache and abdominal cramping omeprazole magnesium [From Prilosec] Allergy (Verified 03/27/22 11:15) headache and abdominal cramping procaine HCl [From Novocain] Allergy (Verified 03/27/22 11:15) swelling red inflamed Home Medications: ALPRAZolam 0.25 MG [xanAX 0.25 MG] 0.25 mg PO DAILY PRN 03/25/19 [History] Albuterol Sulfate [Proair Hfa] 90 mcg IH BID 03/25/19 [History] Budesonide 0.5 mg/2 ml [Pulmicort 0.5 mg/2 ml Respules] 2.5 mg IN Q4H 03/25/19 [History] Duloxetine HCl [Cymbalta] 60 mg PO DAILY 03/25/19 [History] Levothyroxine Sodium 50 Mcg [Synthroid 50 Mcg] 50 mcg PO DAILY 03/25/19 [History] Losartan Potassium 25 mg PO BID 03/25/19 [History] Metoprolol Tartrate 50 mg [Lopressor 50 MG] 75 mg PO BID 03/25/19 [History] Montelukast Sodium 10 mg [Singulair 10 MG] 10 mg PO DAILY 03/25/19 [History] Potassium Chloride Tab* [Klor Con 10 MEQ] 10 meq PO BID 03/25/19 [History] Prednisone 5 mg [Deltasone 5 mg] 5 mg PO DAILY 03/25/19 [History] Promethazine HCl 25 mg [Phenergan 25 mg] 25 mg PO TID 03/25/19 [History] Risedronate Sodium 35 mg [Actonel 35 MG Tablet] 35 mg PO WEEKLY 03/25/19 [History] Ropinirole HCl 1 mg PO DAILY 03/25/19 [History] Simvastatin 10 mg [Zocor 10MG] 10 mg PO DAILY 03/25/19 [History] Triamcinolone Acetonide [Nasacort] 55 mcg IN BID 03/25/19 [History] Hx Tetanus, Diphtheria Vaccination/Date Given: Yes Hx Influenza Vaccination/Date Given: Yes Hx Pneumococcal Vaccination/Date Given: Yes Immunizations Up to Date: Yes Travel Risk - International Travel Have you traveled outside of the country in past 3 weeks: No - Coronavirus Screening Are you exhibiting any of the following symptoms?: No - Vaccine Status Have you recieved a Covid-19 vaccination: Yes 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 - Review of Systems Constitutional: No Symptoms Eyes: No Symptoms Ears, Nose, & Throat: No Symptoms Respiratory: No Symptoms Cardiac: No Symptoms Abdominal/Gastrointestinal: No Symptoms Genitourinary Symptoms: No Symptoms Musculoskeletal: No Symptoms, Neck Pain Skin: No Symptoms Neurological: No Symptoms, No Dizziness, No Focal Weakness, No Gait Changes, No Headache, No Irritability, No Lethargy, No Paralysis, No Parasthesia, No Seizur e, No Sensory Changes, No Speech Changes, No Tics, No Tremors, No Vertigo Psychological: No Symptoms Endocrine: No Symptoms Hematologic/Lymphatic: No Symptoms Immunological/Allergic: No Symptoms - Past Medical History Pertinent Past Medical History: Yes Neurological History: Peripheral Neuropathy ENT History: Cataracts Cardiac History: Hypertension, Other Respiratory History: Asthma Endocrine Medical History: Hypothyroidism Musculoskeletal History: Osteoarthritis, Osteoporosis GI Medical History: Irritable Bowel History: Renal Disease Psycho-Social History: No Pertinent History Female Reproductive Disorders: No Pertinent History Other Medical History: Poor distal circulation; LE and UE - Past Surgical History Past Surgical History: Yes Neuro Surgical History: No Pertinent History Cardiac: No Pertinent History Respiratory: No Pertinent History Gastrointestinal: Cholecystectomy Genitourinary: No Pertinent History Musculoskeletal: Joint Replacement Female Surgical History: Lumpectomy, Tubal Ligation Other Surgical History: excision x 7 to left breast/axilla and 1 to right breast - Social History Smoking Status: Never smoker Exposure to second hand smoke: No Drug Use: none Patient Lives Alone: Yes Significant Family History: no pertinent family hx - Nursing Vital Signs Nursing Vital Signs: Initial Vital Signs Temperature 97.6 F 03/27/22 11:15 Pulse Rate 67 03/27/22 11:15 Respiratory Rate 18 03/27/22 11:15 Blood Pressure 150/109 03/27/22 11:15 O2 Sat by Pulse Oximetry 97 03/27/22 11:15 Pain Scale Pain Intensity 0 Hypertensive - Physical Exam General Appearance: no apparent distress Eye Exam: PERRL/EOMI, eyes nml inspection Ears, Nose, Throat Exam: normal ENT inspection, TMs normal, pharynx normal, moist mucous membranes, No dry mucous membranes Neck Exam: other (L postero-lateral cervical musculature TTP/Wine Blender strength equal and strong/UE reflexes normal), No Brudzinski, No Kernig's Respiratory Exam: normal breath sounds, lungs clear, airway intact, No chest tenderness, No respiratory distress Cardiovascular Exam: regular rate/rhythm, normal heart sounds, normal peripheral pulses, capillary refill <2 sec, No murmur Gastrointestinal/Abdomen Exam: soft, normal bowel sounds, No tenderness Back Exam: normal inspection, normal range of motion, No CVA tenderness, No vertebral tenderness Extremity Exam: normal inspection, normal range of motion, pelvis stable Neurologic Exam: alert, oriented x 3, cooperative, strings teacher II-XII nml as tested, normal mood/affect, nml cerebellar function, nml station & gait, sensation nml, No motor deficits, No sensory deficit Skin Exam: normal color, warm, dry Lymphatic Exam: No adenopathy SpO2 Interpretation: normal SpO2: 97 O2 Delivery: Room Air - Course Nursing assessment & vital signs reviewed: Yes Ordered Tests: Medication Summary Discontinued Medications Generic Name Dose Route Start Last Admin Trade Name Rudy PRN Reason Stop Dose Admin Ketorolac Tromethamine 15 mg 03/27/22 11:28 03/27/22 11:33 Ketorolac Tromethamine 30 Mg/Ml Inj IM 03/27/22 11:29 15 mg STAT ONE Administration Ketorolac Tromethamine Confirm 03/27/22 11:32 Ketorolac Tromethamine 30 Mg/Ml Inj Administered 03/27/22 11:33 Dose 30 mg .ROUTE .STK-MED ONE - Progress Progress: improved Progress Note: 03/27/22 11:36 15mg IM Toradol 03/28/22 01:32 BP decreased before discharge 03/28/22 01:33 Pt told nurse that pain is R sided, but upon exam pain is on L side Counseled pt/family regarding: diagnosis, need for follow-up - Departure Departure Disposition: Home Clinical Impression: Cervical strain Condition: Stable Critical Care Time: No Referrals: DANIELA LAINEZ NP [Primary Care Provider] - Follow up/PCP as directed Instructions: Cervical Muscle Strain (DC), Generalized Neck Pain (DC) Additional Instructions: Rest/Heat/Massage Continue with your home pain meds Follow up with your family MD and neurologist Return to ER as needed
[2022-03-27 11:52] VITALS: BP 133/88; PULSE 59
[2022-03-28 01:33] VITALS: O2SAT 97
== END 2022-03-27 11:52 | disposition home or self-care (01) ==
LOC: ED 11:05
DX: S16.1XXA Strain of muscle, fascia and tendon at neck level, initial encounter (principal); X50.1XXA Overexertion from prolonged static or awkward postures, initial encounter; Y93.H9 Activity, other involving exterior property and land maintenance, building and construction; I10 Essential (primary) hypertension; Z79.891 Long term (current) use of opiate analgesic; Z79.899 Other long term (current) drug therapy
CPT/HCPCS: 96372; 99282; J1885

== ENCOUNTER 2022-12-14 06:13 | Day surgery (SDC) | payer MEDICARE, OTHER ==
[2022-12-14] MEDS ORDERED: Lactated Ringers 1,000 ML IV SCH (07:00)
[2022-12-14] MEDS ORDERED: Xylocaine-Mpf 2% 5 Ml Vial ONE (08:10)
[2022-12-14] MEDS ORDERED: DIPRIVAN 200 MG/20 ML IV ONE (08:10)
[2022-12-14 09:00] VITALS: O2SAT 98
[2022-12-14 09:28] VITALS: BP 138/84; PULSE 64
[2022-12-14] MEDS ORDERED: ATROPINE SULFATE 1MG ONE (09:39)
--- NOTE | 2022-12-14 11:31 | OP ---
SURGERY DATE: 12/14/2022 SURGERY TIME: 813 PREOPERATIVE DIAGNOSIS: 1. PAINFUL THROAT AREA. 2. REFLUX. 3. DYSPHAGIA. POSTOPERATIVE DIAGNOSIS: 1. MODERATE GASTRITIS. 2. TWO SMALL GASTRIC POLYPS. PROCEDURE: 1. Esophagogastroduodenoscopy with cold forceps biopsy. SURGEON: Dr. Garcia. ANESTHESIA: MAC. Medication given by the Anesthesia Department. BRIEF HISTORY: The patient is a 72 y/o WF patient who has a 3-page list of medications of which the most important I believe to be the prednisone in regards to causing her gastric issues. The patient reports she has been on this medicine for quite some time for rheumatoid arthritis. The patient was evaluated and described the risks of the procedure including the risk of perforation, phlebitis, untoward reaction to medication, bleeding, and missed lesions. The patient verbalized her understanding and desired to have the procedure performed. DESCRIPTION OF PROCEDURE: The patient was given the medications by the Anesthesia Department. She had continuous pulse oximetry, ECG monitoring, and intermittent BP monitoring during the examination. She was placed in the left lateral decubitus position. A bite block was placed and the flexible Olympus gastroscope was used to intubate the oropharynx. A view of the larynx was obtained and was normal. The scope was easily introduced in the esophagus which appeared to be normal throughout its length. Specifically, no strictures were noted or evidence of bolivar esophagitis. The stomach was entered where normal gastric rugal folds were seen and these distended nicely with the insufflation of air. The scope was passed along the greater curvature of the stomach to the antrum. Two small polyps were noted in the gastric antrum and were biopsied using cold biopsy technique. The stomach generally had an appearance of inflammation throughout, but no erosions or ulcerations were noted. The pylorus was encountered and intubated. The duodenum was inspected and found to be normal. The scope was withdrawn towards the stomach. A retroflex view was obtained of the lesser curvature, fundus, and cardia regions of the stomach which appeared to be essentially normal other than a mild increase in the inflammation in a patchy area in the gastric antrum. The scope was then removed from the patient who tolerated the procedure well and was sent back to outpatient recovery in good condition.
== END 2022-12-14 09:20 | disposition home or self-care (01) ==
LOC: SDC 06:13
PROVIDERS: ATTEND Family Medicine
DX: K29.70 Gastritis, unspecified, without bleeding (principal); R07.0 Pain in throat; K21.9 Gastro-esophageal reflux disease without esophagitis; R13.10 Dysphagia, unspecified; K31.7 Polyp of stomach and duodenum
CPT/HCPCS: 99100; J0461; J2704

== ENCOUNTER 2023-04-15 14:11 | Observation (INO) | payer MEDICARE, OTHER ==
--- NOTE | 2023-04-15 14:33 | ERPHSYRPT ---
- History of Present Illness Time Seen by Provider: 04/15/23 14:32 Source: patient Exam Limitations: no limitations Patient Subjective Stated Complaint: Pt states "They have been trying to get the water in me straight for some time now and I was at the office and I stood up and passed out." Triage Nursing Assessment: PT presented alert and oriented X 3, skin wpd. Pt ambulates with an unsteady gait, ablet o speak in clear full sentences. PT winces when she moves stateing her back hurts, pt stated her head hurt. Physician History: This is an obese 72-year-old white female patient Dr. Garcia who has multiple medical problems and in the last 2 weeks, after a fall and hitting her head, per her report, she has had some episodes of near syncope/syncope. Patient was at Dr. Garcia's office today when she stood up suddenly and had a near syncopal episode. Vital signs were taken and her blood pressure was very low. Only change, per patient, was that she usually takes metolazone 1 tablet/week. She did increase that to 2 tablets last week. Patient has a history of hypothyroidism, peripheral neuropathy, hypertension, irritable bowel syndrome, rheumatoid arthritis, chronic renal disease. She denies chest pain. She denies shortness of breath. She had no abdominal pain. She denies nausea vomiting or diarrhea. Patient is orthostatic. Her heart rate did not change. However, when she was lying flat her systolic blood pressure was in the 140s. When she sat up at the side of the bed her systolic blood pressure was 113. When she was standing her heart rate was 88. While standing she felt a little dizzy. Timing/Duration: today Severity: mild (To moderate) Character of Deficits: none Deficits: no difficulties Baseline/Normal Cognition: alert oriented x 3 Current Cognition: alert oriented x 3 Associated Symptoms: other, No confusion, No loss of consciousness, No nausea, No vomiting, No weakness, No slurred speech, No vision changes, No chest pain (Mild dizziness when standing) Allergies/Adverse Reactions: bacitracin [From Neosporin ([id number])] Allergy (Mild, Verified 03/27/22 11:15) rash swelling bacitracin zinc [From Neosporin ([id number])] Allergy (Mild, Verified 12/03/22 08:10) rash swelling lidocaine Allergy (Mild, Verified 12/03/22 08:10) swelling red and inflamed neomycin sulfate [From Neosporin ([id number])] Allergy (Mild, Verified 12/03/22 08:10) rash swelling Penicillins Allergy (Mild, Verified 03/27/22 11:15) rash itching polymyxin B [From Neosporin ([id number])] Allergy (Mild, Verified 12/03/22 08:10) rash swelling Sulfa (Sulfonamide Antibiotics) Allergy (Mild, Verified 12/03/22 08:10) rash itching lisinopril Allergy (Verified 12/03/22 08:10) facial swelling omeprazole [From Prilosec] Allergy (Verified 12/03/22 08:10) headache and abdominal cramping omeprazole magnesium [From Prilosec] Allergy (Verified 12/03/22 08:10) headache and abdominal cramping procaine HCl [From Novocain] Allergy (Verified 12/03/22 08:10) swelling red inflamed Home Medications: ALPRAZolam 0.25 MG [xanAX 0.25 MG] 0.25 mg PO DAILY PRN 03/25/19 [History] Albuterol Sulfate [Proair Hfa] 90 mcg IH BID 03/25/19 [History] Levothyroxine Sodium 50 Mcg [Synthroid 50 Mcg] 50 mcg PO DAILY 03/25/19 [History] Montelukast Sodium 10 mg [Singulair 10 MG] 10 mg PO DAILY 03/25/19 [History] Potassium Chloride Tab* [Klor Con] 10 meq PO TID 03/25/19 [History] Prednisone 5 mg [Deltasone 5 mg] 5 mg PO DAILY 03/25/19 [History] Promethazine HCl 25 mg [Phenergan 25 mg] 25 mg PO TID PRN 03/25/19 [History] Risedronate Sodium 35 mg [Actonel 35 MG Tablet] 35 mg PO WEEKLY 03/25/19 [History] Ropinirole HCl 2 mg PO DAILY 03/25/19 [History] Simvastatin 10 mg [Zocor 10MG] 10 mg PO DAILY 03/25/19 [History] Acetaminophen 325 mg [Tylenol 325 mg] 2 tab PO Q4HPRN PRN 12/03/22 [History] Albuterol Sulfate [Proair Respiclick] 2 puffs IH Q4HPRN PRN 12/03/22 [History] Capsaicin 1 applic TOP QID PRN PRN 12/03/22 [History] Docusate Sodium 100 mg [Docusate Sodium 100 MG] 100 mg PO DAILY 12/03/22 [History] Duloxetine HCl 1 cap PO DAILY 12/03/22 [History] Fluticasone Propion/Salmeterol [Fluticasone-Salmeterol 250-50] 1 puff IH BID 12/03/22 [History] Hydrocodone/Acetaminophen [Hydrocodone-Acetamin 10-325 mg] 1 tab PO TIDPRN PRN 12/03/22 [History] Magnesium Oxide 400 mg [Mag-Ox 400] 3 cap PO BID 12/03/22 [History] Metoprolol Tartrate 50 mg [Lopressor 50 MG] 50 mg PO BID 12/03/22 [History] Multivitamin/Iron/Folic Acid [Centrum Adults Tablet] 1 tab PO DAILY 12/03/22 [History] Nystatin Cream 30 gm [Nystop 30 gm Cream] 1 applic TOP BID PRN PRN 12/03/22 [History] PANTOPRAZOLE 40 mg Tablet [Protonix 40MG Tablet] 1 tab PO DAILY 12/03/22 [History] Pregabalin 50 mg [Lyrica 50MG] 50 mg PO BID 12/03/22 [History] Torsemide 100 mg PO BID 12/03/22 [History] Vibegron [Gemtesa] 1 tab PO DAILY 12/03/22 [History] Vitamin B Complex 1 tab PO DAILY 12/03/22 [History] Hx Tetanus, Diphtheria Vaccination/Date Given: No Hx Influenza Vaccination/Date Given: Yes Hx Pneumococcal Vaccination/Date Given: Yes Immunizations Up to Date: Yes Travel Risk - International Travel Have you traveled outside of the country in past 3 weeks: No - Coronavirus Screening Are you exhibiting any of the following symptoms?: No Close contact with a COVID-19 positive Pt in past 14-21 Days: No - Vaccine Status Have you 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 - Vaccination Dates Date of 2cond Vaccination (if applicable): 2020 - Review of Systems Constitutional: Weakness Eyes: No Symptoms Ears, Nose, & Throat: No Symptoms Respiratory: No Symptoms Cardiac: No Symptoms Abdominal/Gastrointestinal: No Symptoms Genitourinary Symptoms: No Symptoms Musculoskeletal: No Symptoms Skin: No Symptoms Neurological: Dizziness Psychological: No Symptoms Endocrine: No Symptoms Hematologic/Lymphatic: No Symptoms Immunological/Allergic: No Symptoms All Other Systems: Reviewed and Negative - Past Medical History Pertinent Past Medical History: Yes Neurological History: Peripheral Neuropathy ENT History: Cataracts Cardiac History: Hypertension, Other Respiratory History: Asthma Endocrine Medical History: Hypothyroidism Musculoskeletal History: Osteoarthritis, Osteoporosis, Rheumatoid Arthritis GI Medical History: Irritable Bowel History: Renal Disease Psycho-Social History: No Pertinent History Female Reproductive Disorders: No Pertinent History Other Medical History: Poor distal circulation; LE and UE, skin ca, idiopathic peripheral neuropathy, hiatal hernia, blackout spells, - Past Surgical History Past Surgical History: Yes Neuro Surgical History: No Pertinent History Cardiac: Cardiac Catheterization Respiratory: No Pertinent History Gastrointestinal: Cholecystectomy Genitourinary: No Pertinent History Musculoskeletal: Joint Replacement Female Surgical History: Lumpectomy, Tubal Ligation Other Surgical History: excision x 7 to left breast/axilla and 1 to right breast - Social History Smoking Status: Never smoker Exposure to second hand smoke: Yes Drug Use: none Patient Lives Alone: Yes Significant Family History: no pertinent family hx - Nursing Vital Signs Nursing Vital Signs: Initial Vital Signs Temperature 97.2 F 04/15/23 14:22 Pulse Rate 70 04/15/23 14:22 Respiratory Rate 20 04/15/23 14:22 Blood Pressure 118/67 04/15/23 14:22 O2 Sat by Pulse Oximetry 94 L 04/15/23 14:22 Pain Scale Pain Intensity 0 - Su Coma Scale Best Eye Response (Su): (4) open spontaneously Best Verbal Response (Oxly): (5) oriented Best Motor Response (Su): (6) obeys commands Oxly Total: 15 - Physical Exam General Appearance: no apparent distress, alert, obese Eye Exam: bilateral eye: normal inspection, PERRL, EOMI Ears, Nose, Throat Exam: normal ENT inspection, moist mucous membranes Neck Exam: normal inspection, non-tender, supple, full range of motion Respiratory: normal breath sounds, lungs clear, airway intact, No chest tenderness, No respiratory distress Cardiovascular: regular rate/rhythm, normal heart sounds, normal peripheral pulses Gastrointestinal: soft, normal bowel sounds, No tenderness Pelvic Exam: not done Rectal Exam: not done Back Exam: normal inspection, normal range of motion, vertebral tenderness (Lumbar region after her fall 2 weeks ago), No CVA tenderness Extremity Exam: normal inspection, normal range of motion Mental Status: alert, oriented x 3, 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 No evidence of acute ischemic changes.) Ordered Tests: Active Orders 24 hr Category Date Time Status EKG-ER Only STAT Care 04/15/23 14:51 Active IV Insertion STAT Care 04/15/23 14:51 Active Pulse Oximetry (ED) STAT Care 04/15/23 14:51 Active cath [Cath for Specimen-Straight] STAT Care 04/15/23 16:34 Active HEAD WITHOUT CONTRAST [CT] Stat Exams 04/15/23 14:52 Completed LUMBAR SPINE W/O [CT] Stat Exams 04/15/23 14:53 Completed CBC W DIFF Stat Lab 04/15/23 14:59 Completed CMP Stat Lab 04/15/23 14:45 Completed CULTURE,URINE Stat Lab 04/15/23 16:35 Received D-DIMER QUANTITATIVE Stat Lab 04/15/23 14:45 Completed MAGNESIUM Stat Lab 04/15/23 14:45 Completed TROPONIN Q4H Lab 04/15/23 14:45 Completed TROPONIN Q4H Lab 04/15/23 19:05 Completed TROPONIN Q4H Lab 04/15/23 23:00 Ordered UA W/RFX UR CULTURE Stat Lab 04/15/23 16:35 Completed Transfer Order Routine Transfer 04/15/23 Ordered Medication Summary Generic Name Dose Route Start Last Admin Trade Name Freq PRN Reason Stop Dose Admin Sodium Chloride 1,000 mls @ 100 mls/hr 04/15/23 15:00 04/15/23 15:00 Sodium Chloride 0.9% 1000 Ml IV 05/15/23 14:59 100 mls/hr .Q10H GRACIE Administration Discontinued Medications Generic Name Dose Route Start Last Admin Trade Name Rudy PRN Reason Stop Dose Admin Hydrocodone Bitart/Acetaminophen 1 tablet 04/15/23 20:42 04/15/23 20:45 Hydrocodone/Acetamin 10-325 Mg Tablet PO 04/15/23 20:43 1 tablet STAT ONE Administration Hydrocodone Bitart/Acetaminophen Confirm 04/15/23 20:45 Hydrocodone/Acetamin 10-325 Mg Tablet Administered 04/15/23 20:46 Dose 1 tablet .ROUTE .STK-MED ONE Enoxaparin Sodium 120 mg 04/15/23 17:20 04/15/23 17:28 Enoxaparin Sodium 120 Mg/0.8 Ml Syringe SQ 04/15/23 17:21 120 mg STAT STA Administration Enoxaparin Sodium Confirm 04/15/23 17:27 Enoxaparin Sodium 120 Mg/0.8 Ml Syringe Administered 04/15/23 17:28 Dose 120 mg SQ .STK-MED ONE Potassium Chloride 20 meq 04/15/23 15:32 04/15/23 15:36 Potassium Chloride Tab 10 Meq Tab PO 04/15/23 15:33 20 meq STAT ONE Administration Potassium Chloride Confirm 04/15/23 15:35 Potassium Chloride Tab 10 Meq Tab Administered 04/15/23 15:36 Dose 20 meq PO .STK-MED ONE Lab/Rad Data: Laboratory Result Diagrams 04/15/23 14:59 04/15/23 14:45 Laboratory Results 04/15/23 04/15/23 04/15/23 Range/Units 19:05 16:35 14:59 WBC 10.0 (4.0-10.5) x10^3/uL RBC 4.45 (4.1-5.4) x10^6/uL Hgb 13.0 (12.0-16.0) g/dL Hct 40.8 (35-47) % MCV 91.7 (78-100) fL MCH 29.2 (26-32) pg MCHC 31.9 L (32-36) g/dL RDW 14.2 H (11.5-14.0) % Plt Count 216 (150-450) x10^3/uL MPV 9.8 (7.5-11.0) fL Gran % 69.9 H (36.0-66.0) % Immature Gran % (Auto) 0.3 (0.00-0.4) % Nucleat RBC Rel Count 0.0 (0.00-0.1) % Eos # (Auto) 0.19 (0-0.5) x10^3/uL Immature Gran # (Auto) 0.03 (0.00-0.03) x10^3u/L Absolute Lymphs (auto) 1.36 (1.0-4.6) x10^3/uL Absolute Monos (auto) 1.39 H (0.0-1.3) x10^3/uL Absolute Nucleated RBC 0.00 (0.00-0.01) x10^3u/L Lymphocytes % 13.6 L (24.0-44.0) % Monocytes % 13.9 H (0.0-12.0) % Eosinophils % 1.9 (0.00-5.0) % Basophils % 0.4 (0.0-0.4) % Absolute Granulocytes 7.02 H (1.4-6.9) x10^3/uL Basophils # 0.04 (0-0.4) x10^3/uL D-Dimer (0.0-0.50) mg/L Sodium (137-145) mmol/L Potassium (3.5-5.1) mmol/L Chloride (98-107) mmol/L Carbon Dioxide (22-30) mmol/L Anion Gap (5-15) MEQ/L BUN (7-17) mg/dL Creatinine (0.52-1.04) mg/dL Estimated GFR ML/MIN Glucose (74-106) mg/dL Calcium (8.4-10.2) mg/dL Magnesium (1.6-2.3) mg/dL Total Bilirubin (0.2-1.3) mg/dL AST (14-36) U/L ALT (0-35) U/L Alkaline Phosphatase (38-126) U/L Troponin I 0.013 (0.000-0.034) ng/mL Serum Total Protein (6.3-8.2) g/dL Albumin (3.5-5.0) g/dL Urine Color Yellow (Yellow) Urine Appearance Clear (Clear) Urine pH 7.5 (4.6-8.0) Ur Specific [place] <=1.005 (1.005-1.030) Urine Protein Negative (Negative) Urine Glucose (UA) Negative (Negative) mg/dL Urine Ketones Negative (Negative) Urine Blood Negative (Negative) Urine Nitrite Negative (Negative) Urine Bilirubin Negative (Negative) Urine Urobilinogen 0.2 (0.2) mg/dL Ur Leukocyte Esterase Negative (Negative) U Hyaline Cast (Auto) NONE SEEN (0-2) /LPF Urine Microscopic RBC 0-2 (0-5) /HPF Urine Microscopic WBC 0-2 (0-5) /HPF Ur Epithelial Cells None Seen (None Seen) /HPF Urine Bacteria None Seen (None Seen) /HPF Urine Culture Reflexed ORDERED SEPARATELY (NO) 04/15/23 04/15/23 04/15/23 Range/Units 14:45 14:45 14:45 WBC (4.0-10.5) x10^3/uL RBC (4.1-5.4) x10^6/uL Hgb (12.0-16.0) g/dL Hct (35-47) % MCV (78-100) fL MCH (26-32) pg MCHC (32-36) g/dL RDW (11.5-14.0) % Plt Count (150-450) x10^3/uL MPV (7.5-11.0) fL Gran % (36.0-66.0) % Immature Gran % (Auto) (0.00-0.4) % Nucleat RBC Rel Count (0.00-0.1) % Eos # (Auto) (0-0.5) x10^3/uL Immature Gran # (Auto) (0.00-0.03) x10^3u/L Absolute Lymphs (auto) (1.0-4.6) x10^3/uL Absolute Monos (auto) (0.0-1.3) x10^3/uL Absolute Nucleated RBC (0.00-0.01) x10^3u/L Lymphocytes % (24.0-44.0) % Monocytes % (0.0-12.0) % Eosinophils % (0.00-5.0) % Basophils % (0.0-0.4) % Absolute Granulocytes (1.4-6.9) x10^3/uL Basophils # (0-0.4) x10^3/uL D-Dimer 0.81 H* (0.0-0.50) mg/L Sodium 132 L (137-145) mmol/L Potassium 3.2 L (3.5-5.1) mmol/L Chloride 82 L (98-107) mmol/L Carbon Dioxide 36 H (22-30) mmol/L Anion Gap 17.2 H (5-15) MEQ/L BUN 68 H (7-17) mg/dL Creatinine 2.87 H (0.52-1.04) mg/dL Estimated GFR 17.1 ML/MIN Glucose 104 (74-106) mg/dL Calcium 9.9 (8.4-10.2) mg/dL Magnesium 4.3 H (1.6-2.3) mg/dL Total Bilirubin 0.60 (0.2-1.3) mg/dL AST 41 H (14-36) U/L ALT 30 (0-35) U/L Alkaline Phosphatase 139 H (38-126) U/L Troponin I 0.020 (0.000-0.034) ng/mL Serum Total Protein 7.4 (6.3-8.2) g/dL Albumin 4.3 (3.5-5.0) g/dL Urine Color (Yellow) Urine Appearance (Clear) Urine pH (4.6-8.0) Ur Specific [place] (1.005-1.030) Urine Protein (Negative) Urine Glucose (UA) (Negative) mg/dL Urine Ketones (Negative) Urine Blood (Negative) Urine Nitrite (Negative) Urine Bilirubin (Negative) Urine Urobilinogen (0.2) mg/dL Ur Leukocyte Esterase (Negative) U Hyaline Cast (Auto) (0-2) /LPF Urine Microscopic RBC (0-5) /HPF Urine Microscopic WBC (0-5) /HPF Ur Epithelial Cells (None Seen) /HPF Urine Bacteria (None Seen) /HPF Urine Culture Reflexed (NO) - Progress Progress: improved, re-examined Progress Note: 04/15/23 15:43 This patient's medical issue is 1 of moderate to high complexity. Level complexity in the work-up performed is based on review of the patient's past medical history, review the patient's medication list, review the patient's drug allergy list, history of present illness and physical findings on examination. This patient's work-up includes a intravenous line placement, orthostatic vital signs, twelve-lead EKG, CBC, CMP, troponin level and D-dimer level. We are also obtaining a urinalysis. I have reviewed the work-up thus far, the patient has an elevated D-dimer. However, she also padilla significant chronic renal disease. We will wait for the remainder of the work-up. Likely, the patient will need a pulmonary VQ scan. We will be unable to perform a CT scan of the chest with contrast. 04/15/23 16:31 CT scan of the head without contrast was interpreted by the radiologist and I reviewed the impression. The impression is continued nonacute senile brain. CT scan of the lumbar spine without contrast was interpreted by the radiologist. I reviewed the impression. The impression is osteopenia, multilevel degenerative spondylosis, scoliosis. No new/acute findings. 04/15/23 17:[address] scan results as well as the work-up plus laboratory study results with the patient. We cannot perform the CT scan of the chest with contrast here in this hospital. The radiologist desire the GFR to be 50 or over. This patient has chronic renal disease. I asked the patient if she is on any blood thinning medication she denies being on any anticoagulation therapy. I reviewed her medication list and I do not see any anticoagulation medication. Nuclear medicine VQ scan will be available here on , in the next 3 days. I do not feel the patient needs to be in our hospital for 3 days waiting for a VQ scan to be performed. We will repeat orthostatic vital signs. If she is feeling well and the orthostatic vital signs are stable, we will discharge the patient to home with a Lovenox prescription and arrange for her to have outpatient VQ scan on , 04/18/2023. Patient does not want to be transferred to any other facility. Patient denies shortness of breath. She currently denies dizziness. She denies chest pain. 04/15/23 20:[address] Connor, the telehospitalist on-call. I reviewed the patient work-up, past medical history, admission complaint with her. I also reviewed the results of the radiographic studies and laboratory studies. The patient does have an elevated D-dimer. She has orthostatic hypotension. We have attempted to provide her with low rate fluid because of her renal disease. Despite the additional fluid, she is still symptomatically orthostatic. We will bring her in the hospital and order a VQ scan as well as provide her with normal saline solution at 100 mL an hour with repeat labs in the morning. Counseled pt/family regarding: lab results, diagnosis, need for follow-up, rad results Medical Desision Making - Diagnostic Testing Diagnostic test were ordered, analyzed, and reviewed by me: Yes Radiological Interpretation: Reviewed by me, Teleradiologist Report - Risk of complications The pt has a high risk of morbidity or mortality based on: Decision regarding hospitilization or escalation of hosp level of care - Departure Departure Disposition: In-patient Admission Clinical Impression: Orthostatic hypotension, Dizziness, Elevated d-dimer, Renal disease Condition: Fair Critical Care Time: No Referrals: DANIELA LAINEZ NP [Primary Care Provider] - Follow up/PCP as directed
[2023-04-15 14:58] LABS: Absolute Neutrophil Ct (ANC) 7.02 x10^3/uL (1.4-6.9); BASOPHIL % 0.4 % (0.0-0.4); Basophil (Absolute #) 0.04 x10^3/uL (0-0.4); Eosinophil % 1.9 % (0.00-5.0); Eosinophil (Absolute #) 0.19 x10^3/uL (0-0.5); Hematocrit 40.8 % (35-47); IMMATURE GRAN # 0.03 x10^3u/L (0.00-0.03); IMMATURE GRAN % 0.3 % (0.00-0.4); Lymphocyte (Absolute #) 1.36 x10^3/uL (1.0-4.6); Lymphocytes % 13.6 % (24.0-44.0); Mean Cell Volume 91.7 fL (78-100); Mean Corpuscular Hemoglobin 29.2 pg (26-32); Mean Corpuscular Hgb Concent. 31.9 g/dL (32-36); Mean Platelet Volume 9.8 fL (7.5-11.0); Monocyte (Absolute #) 1.39 x10^3/uL (0.0-1.3); Monocytes % 13.9 % (0.0-12.0); Neutrophil % 69.9 % (36.0-66.0); Platelet Count 216 x10^3/uL (150-450); Red Blood Count 4.45 x10^6/uL (4.1-5.4); Red Cell Distribution Width 14.2 % (11.5-14.0)
[2023-04-15] MEDS ORDERED: Sodium Chloride 0.9% 1000 ML 1,000 ML ONE ×2 (14:59→22:23)
[2023-04-15] MEDS ORDERED: Sodium Chloride 0.9% 1000 ML 1,000 ML IV SCH ×2 (15:00→21:34)
[2023-04-15 15:12] LABS: ALBUMIN 4.3 g/dL (3.5-5.0); BILIRUBIN,TOTAL 0.6 mg/dL (0.2-1.3); Calcium 9.9 mg/dL (8.4-10.2); Creatinine 1 2.87 mg/dL (0.52-1.04); EST GLOMERULAR FILTRATION RATE 17.1 ML/MIN; MAGNESIUM 4.3 mg/dL (1.6-2.3); Potassium 3.2 mmol/L (3.5-5.1); Total Protein 7.4 g/dL (6.3-8.2)
[2023-04-15 15:19] LABS: ANION GAP 17.2 MEQ/L (5-15)
[2023-04-15] MEDS ORDERED: Klor Con PO ONE ×2 (15:32→15:35)
--- NOTE | 2023-04-15 16:31 | XRAY ---
Indication: Syncope. Status post fall 2 weeks ago. Multiple contiguous axial images obtained through the head without contrast. Comparison: November 25, 2020 Again age-appropriate global atrophy and minimal periventricular degenerative micro-ischemia bilaterally. No acute intracranial hemorrhage, abnormal extra-axial fluid collection, or mass effect. Fourth ventricle is midline without hydrocephalus. Bony calvarium intact. Visualized paranasal sinuses and mastoid air cells are clear. Impression: Continued nonacute senile brain.
--- NOTE | 2023-04-15 16:35 | XRAY ---
Indication: Status post fall 2 weeks ago. Multiple contiguous axial images obtained through the lumbar spine. Sagittal and coronal reformatted images obtained. Comparison: CT abdomen/pelvis March 25, 2019 Again osteopenia, moderate/advanced multilevel thoracolumbar degenerative changes with multilevel degenerative vacuum disc phenomena, and mild levoscoliosis centered at thoracolumbar junction. No acute fracture, suspicious bony lesions, or spinal canal stenosis. Visualized noncontrasted soft tissues again demonstrates minimal bibasilar lung dependent atelectasis and mild aortic calcifications. Impression: Again osteopenia, multilevel degenerative spondylosis, scoliosis, and arteriosclerotic disease. No new/acute findings.
[2023-04-15 16:50] LABS: Appearance Clear (Clear); Bacteria None Seen /HPF (None Seen); Bilirubin Negative (Negative); Blood Negative (Negative); Epithelial Cells None Seen /HPF (None Seen); Glucose, Urine Negative (Negative); Hyaline Casts NONE SEEN /LPF (0-2); Ketones Negative (Negative); Leukocyte Esterase Negative (Negative); Nitrite Negative (Negative); Ph 7.5 (4.6-8.0); Protein,Urine Dip Negative (Negative); RBC 0-2 /HPF (0-5); Specific Gravity <=1.005 (1.005-1.030); Urobilinogen 0.2 mg/dL (0.2); WBC 0-2 /HPF (0-5)
[2023-04-15 16:53] LABS: ADD URINE CULTURE? ORDERED SEPARATELY (NO)
[2023-04-15] MEDS ORDERED: ENOXAPARIN SODIUM SQ STA (17:20)
[2023-04-15] MEDS ORDERED: ENOXAPARIN SODIUM SQ ONE (17:27)
[2023-04-15] MEDS ORDERED: HYDROCODONE-ACETAMIN 10-325 MG PO ONE (20:42)
[2023-04-15] MEDS ORDERED: HYDROCODONE-ACETAMIN 10-325 MG ONE (20:45)
[2023-04-15] MEDS ORDERED: HYDROCODONE-ACETAMIN 10-325 MG PO PRN (21:34)
[2023-04-15] MEDS ORDERED: TYLENOL 325 MG PO PRN ×2 (21:34→22:45)
[2023-04-15] MEDS ORDERED: Zofran 4 MG/2 ML VIAL IV PRN (21:34)
[2023-04-15] MEDS ORDERED: ENOXAPARIN SODIUM SQ SCH (22:00)
[2023-04-15] MEDS ORDERED: xanAX 0.25 MG PO PRN (22:45)
[2023-04-15] MEDS ORDERED: PHENERGAN 25 MG PO PRN (22:45)
[2023-04-15] MEDS ORDERED: CAPSAICIN TOP PRN (22:45)
[2023-04-15] MEDS ORDERED: NYSTOP 30 GM CREAM TOP PRN (22:45)
[2023-04-15] MEDS ORDERED: NON-FORMULARY ITEM (Albuterol Sulfate [Proair Respiclick] 90 MCG Aer.Pow.Ba) IH PRN (22:45)
--- NOTE | 2023-04-15 23:06 | PCM.HP ---
History of Present Illness - Chief Complaint Chief Complaint: orthostatic hypotension Date: 04/15/23 History of Present Illness: This is a 72-year-old female admitted to [facility] for evaluation of syncope and orthostatic hypotension. She has past medical history of hypothyroid, peripheral neuropathy, hypertension, IBS, RA, CKD. She was seen by her primary care physician today for evaluation after suffering a fall and hitting her head approx 2 weeks ago related to tripping over yard ornament. Since that time she reports episodes of presyncope and syncope. She also reports initiating Metolazone which completely resolved her edema but has left her feeling dehydrat ed. She also developed nausea followed by 4 days of diarrhea. No fever, chills, sick contacts. Today at her physician's office she again had an episode of near syncope orthostatic blood pressure was checked in the ED and blood pressure found to drop from 140s to the 80s. She was given IV fluids and repeat blood pressures were checked and she continued to be orthostatic. Labs were significant for WBC of 10, D-dimer 0.81, sodium 132, potassium 3.2, serum bicarb 36, anion gap 17, creatinine 2.3 (1.04 Dec 2022), glucose 104, UA negative for pyuria. CT head showed no acute pathology in the ED she received [place] 20 mEq of potassium and normal saline. - Review of Systems Constitutional: Weakness Eyes: No Symptoms Ears, Nose, & Throat: Ear Pain Respiratory: No Symptoms Cardiac: Syncope Abdominal/Gastrointestinal: Nausea, Diarrhea Genitourinary Symptoms: No Symptoms Musculoskeletal: No Symptoms Skin: No Symptoms Neurological: Dizziness Endocrine: No Symptoms Medications & Allergies Home Medications: Home Medication List ALPRAZolam 0.25 MG [xanAX 0.25 MG] 0.25 mg PO DAILY PRN 03/25/19 [History Confirmed 04/15/23] Albuterol Sulfate [Proair Hfa] 90 mcg IH BID 03/25/19 [History Confirmed 04/15/23] Levothyroxine Sodium 50 Mcg [Synthroid 50 Mcg] 50 mcg PO DAILY 03/25/19 [History Confirmed 04/15/23] Montelukast Sodium 10 mg [Singulair 10 MG] 10 mg PO DAILY 03/25/19 [History Confirmed 04/15/23] Potassium Chloride Tab* [Klor Con] 10 meq PO TID 03/25/19 [History Confirmed 04/15/23] Prednisone 5 mg [Deltasone 5 mg] 5 mg PO DAILY 03/25/19 [History Confirmed 04/15/23] Promethazine HCl 25 mg [Phenergan 25 mg] 25 mg PO TID PRN 03/25/19 [History Confirmed 04/15/23] Risedronate Sodium 35 mg [Actonel 35 MG Tablet] 35 mg PO WEEKLY 03/25/19 [History Confirmed 04/15/23] Ropinirole HCl 2 mg PO DAILY 03/25/19 [History Confirmed 04/15/23] Simvastatin 10 mg [Zocor 10MG] 10 mg PO DAILY 03/25/19 [History Confirmed 04/15/23] Acetaminophen 325 mg [Tylenol 325 mg] 2 tab PO Q4HPRN PRN 12/03/22 [History Confirmed 04/15/23] Albuterol Sulfate [Proair Respiclick] 2 puffs IH Q4HPRN PRN 12/03/22 [History Confirmed 04/15/23] Capsaicin 1 applic TOP QID PRN PRN 12/03/22 [History Confirmed 04/15/23] Docusate Sodium 100 mg [Docusate Sodium 100 MG] 100 mg PO DAILY 12/03/22 [History Confirmed 04/15/23] Duloxetine HCl 1 cap PO DAILY 12/03/22 [History Confirmed 04/15/23] Fluticasone Propion/Salmeterol [Fluticasone-Salmeterol 250-50] 1 puff IH BID 12/03/22 [History Confirmed 04/15/23] Hydrocodone/Acetaminophen [Hydrocodone-Acetamin 10-325 mg] 1 tab PO TIDPRN PRN 12/03/22 [History Confirmed 04/15/23] Magnesium Oxide 400 mg [Mag-Ox 400] 3 cap PO BID 12/03/22 [History Confirmed 04/15/23] Metoprolol Tartrate 50 mg [Lopressor 50 MG] 50 mg PO BID 12/03/22 [History Confirmed 04/15/23] Multivitamin/Iron/Folic Acid [Centrum Adults Tablet] 1 tab PO DAILY 12/03/22 [History Confirmed 04/15/23] Nystatin Cream 30 gm [Nystop 30 gm Cream] 1 applic TOP BID PRN PRN 12/03/22 [History Confirmed 04/15/23] PANTOPRAZOLE 40 mg Tablet [Protonix 40MG Tablet] 1 tab PO DAILY 12/03/22 [History Confirmed 04/15/23] Pregabalin 50 mg [Lyrica 50MG] 50 mg PO BID 12/03/22 [History Confirmed 04/15/23] Torsemide 100 mg PO BID 12/03/22 [History Confirmed 04/15/23] Vibegron [Gemtesa] 1 tab PO DAILY 12/03/22 [History Confirmed 04/15/23] Vitamin B Complex 1 tab PO DAILY 12/03/22 [History Confirmed 04/15/23] Allergies/Adverse Reactions: Allergies Allergy/AdvReac Type Severity Reaction Status Date / Time bacitracin Allergy Mild rash Verified 03/27/22 11:15 [From Neosporin swelling ([id number])] bacitracin zinc Allergy Mild rash Verified 12/03/22 08:10 [From Neosporin swelling ([id number])] lidocaine Allergy Mild swelling Verified 12/03/22 08:10 red and inflamed neomycin sulfate Allergy Mild rash Verified 12/03/22 08:10 [From Neosporin swelling ([id number])] Penicillins Allergy Mild rash Verified 03/27/22 11:15 itching polymyxin B Allergy Mild rash Verified 12/03/22 08:10 [From Neosporin swelling ([id number])] Sulfa (Sulfonamide Allergy Mild rash Verified 12/03/22 08:10 Antibiotics) itching lisinopril Allergy facial Verified 12/03/22 08:10 swelling omeprazole [From Prilosec] Allergy Verified 12/03/22 08:10 omeprazole magnesium Allergy Verified 12/03/22 08:10 [From Prilosec] procaine HCl [From Novocain] Allergy swelling Verified 12/03/22 08:10 red inflamed - Past Medical History Past Medical History: Yes Neurological History: Peripheral Neuropathy ENT History: Cataracts Cardiac History: Hypertension, Other Respiratory History: Asthma Endocrine Medical History: Hypothyroidism Musculoskelatal History: Osteoarthritis, Osteoporosis, Rheumatoid Arthritis GI Medical History: Irritable Bowel History: Renal Disease Pyscho-Social History: No Pertinent History Reproductive Disorders: No Pertinent History Comment: Poor distal circulation; LE and UE, skin ca, idiopathic peripheral neuropathy, hiatal hernia, blackout spells, stage 4 kidney disease - Past Surgical History Past Surgical History: Yes Neuro Surgical History: No Pertinent History Cardiac History: Cardiac Catheterization Respiratory Surgery: No Pertinent History GI Surgical History: Cholecystectomy Genitourinary Surgical Hx: No Pertinent History Musculskeletal Surgical Hx: Joint Replacement Female Surgical History: Lumpectomy, Tubal Ligation Other Surgical History: excision x 7 to left breast/axilla and 1 to right breast - Social History Smoking Status: Never smoker Exposure to second hand smoke: Yes Alcohol: None Drug Use: none Significant Family History: no pertinent family hx - Physical Exam Vital Signs: Vital Signs - 24 hr Temp Pulse Resp BP BP Pulse Ox 04/15/23 22:47 70 124/59 04/15/23 21:42 81 142/59 04/15/23 21:40 98.1 F 73 16 163/72 94 L 04/15/23 21:34 94 L 04/15/23 21:00 67 12 124/63 94 L 04/15/23 20:57 94 L 04/15/23 20:51 67 16 122/73 93 L 04/15/23 20:40 68 14 122/62 92 L 04/15/23 20:31 68 15 89/61 94 L 04/15/23 20:21 69 12 128/71 94 L 04/15/23 20:12 74 16 142/67 94 L 04/15/23 20:09 69 16 139/77 94 L 04/15/23 20:04 70 18 105/67 96 04/15/23 20:02 80 23 111/62 92 L 04/15/23 20:00 78 16 115/62 93 L 04/15/23 19:51 61 19 116/65 93 L 04/15/23 19:31 67 11 L 118/89 93 L 04/15/23 19:21 68 14 144/69 93 L 04/15/23 19:11 67 20 147/82 96 04/15/23 19:05 70 19 147/77 93 L 04/15/23 16:30 67 12 109/66 04/15/23 15:10 64 11 L 136/71 92 L 04/15/23 15:00 63 21 130/71 92 L 04/15/23 14:55 94 L 04/15/23 14:50 65 18 118/79 95 04/15/23 14:42 63 19 134/75 95 04/15/23 14:41 65 11 L 99/70 95 04/15/23 14:22 97.2 F 70 20 118/67 94 L General Appearance: no apparent distress Neurologic Exam: alert, oriented x 3 Eye Exam: PERRL/EOMI Ears, Nose, Throat Exam: normal ENT inspection Neck Exam: normal inspection Respiratory Exam: normal breath sounds Cardiovascular Exam: regular rate/rhythm Gastrointestinal/Abdomen Exam: soft Back Exam: normal inspection Extremity Exam: normal inspection Skin Exam: normal color Results - Labs Lab/Micro Results: Lab Results-Last 24 Hours 04/15/23 04/15/23 04/15/23 Range/Units 14:45 14:45 14:45 WBC (4.0-10.5) x10^3/uL RBC (4.1-5.4) x10^6/uL Hgb (12.0-16.0) g/dL Hct (35-47) % MCV (78-100) fL MCH (26-32) pg MCHC (32-36) g/dL RDW (11.5-14.0) % Plt Count (150-450) x10^3/uL MPV (7.5-11.0) fL Gran % (36.0-66.0) % Immature Gran % (Auto) (0.00-0.4) % Nucleat RBC Rel Count (0.00-0.1) % Eos # (Auto) (0-0.5) x10^3/uL Immature Gran # (Auto) (0.00-0.03) x10^3u/L Absolute Lymphs (auto) (1.0-4.6) x10^3/uL Absolute Monos (auto) (0.0-1.3) x10^3/uL Absolute Nucleated RBC (0.00-0.01) x10^3u/L Lymphocytes % (24.0-44.0) % Monocytes % (0.0-12.0) % Eosinophils % (0.00-5.0) % Basophils % (0.0-0.4) % Absolute Granulocytes (1.4-6.9) x10^3/uL Basophils # (0-0.4) x10^3/uL D-Dimer 0.81 H* (0.0-0.50) mg/L Sodium 132 L (137-145) mmol/L Potassium 3.2 L (3.5-5.1) mmol/L Chloride 82 L (98-107) mmol/L Carbon Dioxide 36 H (22-30) mmol/L Anion Gap 17.2 H (5-15) MEQ/L BUN 68 H (7-17) mg/dL Creatinine 2.87 H (0.52-1.04) mg/dL Estimated GFR 17.1 ML/MIN Glucose 104 (74-106) mg/dL Calcium 9.9 (8.4-10.2) mg/dL Magnesium 4.3 H (1.6-2.3) mg/dL Total Bilirubin 0.60 (0.2-1.3) mg/dL AST 41 H (14-36) U/L ALT 30 (0-35) U/L Alkaline Phosphatase 139 H (38-126) U/L Troponin I 0.020 (0.000-0.034) ng/mL Serum Total Protein 7.4 (6.3-8.2) g/dL Albumin 4.3 (3.5-5.0) g/dL Urine Color (Yellow) Urine Appearance (Clear) Urine pH (4.6-8.0) Ur Specific [place] (1.005-1.030) Urine Protein (Negative) Urine Glucose (UA) (Negative) mg/dL Urine Ketones (Negative) Urine Blood (Negative) Urine Nitrite (Negative) Urine Bilirubin (Negative) Urine Urobilinogen (0.2) mg/dL Ur Leukocyte Esterase (Negative) U Hyaline Cast (Auto) (0-2) /LPF Urine Microscopic RBC (0-5) /HPF Urine Microscopic WBC (0-5) /HPF Ur Epithelial Cells (None Seen) /HPF Urine Bacteria (None Seen) /HPF Urine Culture Reflexed (NO) 04/15/23 04/15/23 04/15/23 Range/Units 14:59 16:35 19:05 WBC 10.0 (4.0-10.5) x10^3/uL RBC 4.45 (4.1-5.4) x10^6/uL Hgb 13.0 (12.0-16.0) g/dL Hct 40.8 (35-47) % MCV 91.7 (78-100) fL MCH 29.2 (26-32) pg MCHC 31.9 L (32-36) g/dL RDW 14.2 H (11.5-14.0) % Plt Count 216 (150-450) x10^3/uL MPV 9.8 (7.5-11.0) fL Gran % 69.9 H (36.0-66.0) % Immature Gran % (Auto) 0.3 (0.00-0.4) % Nucleat RBC Rel Count 0.0 (0.00-0.1) % Eos # (Auto) 0.19 (0-0.5) x10^3/uL Immature Gran # (Auto) 0.03 (0.00-0.03) x10^3u/L Absolute Lymphs (auto) 1.36 (1.0-4.6) x10^3/uL Absolute Monos (auto) 1.39 H (0.0-1.3) x10^3/uL Absolute Nucleated RBC 0.00 (0.00-0.01) x10^3u/L Lymphocytes % 13.6 L (24.0-44.0) % Monocytes % 13.9 H (0.0-12.0) % Eosinophils % 1.9 (0.00-5.0) % Basophils % 0.4 (0.0-0.4) % Absolute Granulocytes 7.02 H (1.4-6.9) x10^3/uL Basophils # 0.04 (0-0.4) x10^3/uL D-Dimer (0.0-0.50) mg/L Sodium (137-145) mmol/L Potassium (3.5-5.1) mmol/L Chloride (98-107) mmol/L Carbon Dioxide (22-30) mmol/L Anion Gap (5-15) MEQ/L BUN (7-17) mg/dL Creatinine (0.52-1.04) mg/dL Estimated GFR ML/MIN Glucose (74-106) mg/dL Calcium (8.4-10.2) mg/dL Magnesium (1.6-2.3) mg/dL Total Bilirubin (0.2-1.3) mg/dL AST (14-36) U/L ALT (0-35) U/L Alkaline Phosphatase (38-126) U/L Troponin I 0.013 (0.000-0.034) ng/mL Serum Total Protein (6.3-8.2) g/dL Albumin (3.5-5.0) g/dL Urine Color Yellow (Yellow) Urine Appearance Clear (Clear) Urine pH 7.5 (4.6-8.0) Ur Specific [place] <=1.005 (1.005-1.030) Urine Protein Negative (Negative) Urine Glucose (UA) Negative (Negative) mg/dL Urine Ketones Negative (Negative) Urine Blood Negative (Negative) Urine Nitrite Negative (Negative) Urine Bilirubin Negative (Negative) Urine Urobilinogen 0.2 (0.2) mg/dL Ur Leukocyte Esterase Negative (Negative) U Hyaline Cast (Auto) NONE SEEN (0-2) /LPF Urine Microscopic RBC 0-2 (0-5) /HPF Urine Microscopic WBC 0-2 (0-5) /HPF Ur Epithelial Cells None Seen (None Seen) /HPF Urine Bacteria None Seen (None Seen) /HPF Urine Culture Reflexed ORDERED SEPARATELY (NO) - Radiology Impressions Radiology Exams & Impressions: Radiology Procedures Category Date Time Status ECHO W/2D AND DOPPLER [US] Routine Exams 04/15/23 22:51 Ordered HEAD WITHOUT CONTRAST [CT] Stat Exams 04/15/23 14:52 Completed LUMBAR SPINE W/O [CT] Stat Exams 04/15/23 14:53 Completed PULMONARY PERF VENTILATION [NUCMED] Stat Exams 04/15/23 21:34 Ordered - Other Procedures and Tests Respiratory Therapy 04/15/23 21:34 EKG REPEAT IN AM Assessment/Plan (1) Dizziness Current Visit: Yes Status: Acute Code(s): R42 - DIZZINESS AND GIDDINESS (2) Elevated d-dimer Current Visit: Yes Status: Acute Code(s): R79.89 - OTHER SPECIFIED ABNORMAL FINDINGS OF BLOOD CHEMISTRY (3) Orthostatic hypotension Current Visit: Yes Status: Acute Assessment & Plan: ASSESSMENT #Syncope/presyncope #Orthostatic hypotension #Hyponatremia #YEISON on CKD #Elevated D-dimer PLAN -Monitor on telemetry -Hold torsemide, Metolazone -Hold metoprolol -Gentle IV fluids overnight -Repeat orthostatics in a.m. -VQ scan -Repeat BMP -Empiric anticoagulation Prophylaxis: Lovenox Entire encounter performed via telemedicine. Code(s): I95.1 - ORTHOSTATIC HYPOTENSION Telemedicine Encounter - Telemedicine Encounter Telemedicine Encounter: The entirety of this encounter was performed via Telemedicine"
[2023-04-16 00:04] LABS: INFLUENZA A NEGATIVE (NEGATIVE); INFLUENZA B NEGATIVE (NEGATIVE); RESPIRATORY SYNCTIAL VIRUS NEGATIVE (NEGATIVE); SARS-CoV-2 Xpert Express NEGATIVE (NEGATIVE)
[2023-04-16 04:56] LABS: Absolute Neutrophil Ct (ANC) 3.41 x10^3/uL (1.4-6.9); BASOPHIL % 0.8 % (0.0-0.4); Basophil (Absolute #) 0.05 x10^3/uL (0-0.4); Eosinophil % 3.8 % (0.00-5.0); Eosinophil (Absolute #) 0.25 x10^3/uL (0-0.5); Hematocrit 40.9 % (35-47); IMMATURE GRAN # 0.03 x10^3u/L (0.00-0.03); IMMATURE GRAN % 0.5 % (0.00-0.4); Lymphocyte (Absolute #) 1.96 x10^3/uL (1.0-4.6); Lymphocytes % 29.7 % (24.0-44.0); Mean Cell Volume 91.9 fL (78-100); Mean Corpuscular Hemoglobin 29.2 pg (26-32); Mean Corpuscular Hgb Concent. 31.8 g/dL (32-36); Mean Platelet Volume 9.7 fL (7.5-11.0); Monocyte (Absolute #) 0.89 x10^3/uL (0.0-1.3); Monocytes % 13.5 % (0.0-12.0); Neutrophil % 51.7 % (36.0-66.0); Platelet Count 193 x10^3/uL (150-450); Red Blood Count 4.45 x10^6/uL (4.1-5.4); White Blood Count 6.6 x10^3/uL (4.0-10.5)
[2023-04-16] MEDS ORDERED: ENOXAPARIN SODIUM SQ ONE (05:11)
[2023-04-16 05:20] LABS: BILIRUBIN,TOTAL 0.5 mg/dL (0.2-1.3); Calcium 9.4 mg/dL (8.4-10.2); Creatinine 1 2.5 mg/dL (0.52-1.04); Total Protein 6.9 g/dL (6.3-8.2)
[2023-04-16 05:21] LABS: ANION GAP 12.9 MEQ/L (5-15)
[2023-04-16 05:23] LABS: Potassium 2.9 mmol/L (3.5-5.1)
[2023-04-16] MEDS ORDERED: Klor Con PO ONE ×3 (05:27→07:30)
[2023-04-16] MEDS: Advair Hfa 115/21 Common canister IH SCH ×2 (06:29→19:43)
[2023-04-16] MEDS ORDERED: VENTOLIN COMMON CANISTER IH PRN (07:24)
[2023-04-16] MEDS ORDERED: MEDICATION INTERVENTION MC SCH ×3 (07:30→07:45)
[2023-04-16] MEDS ORDERED: Cymbalta 30 MG Capsule ONE (09:09)
[2023-04-16] MEDS ORDERED: Lyrica 50MG ONE (09:09)
[2023-04-16] MEDS ORDERED: Singulair 10 MG ONE (09:09)
[2023-04-16] MEDS ORDERED: SYNTHROID 50 MCG ONE (09:09)
[2023-04-16] MEDS ORDERED: Zocor 10MG ONE (09:10)
[2023-04-16] MEDS ORDERED: Protonix 40MG Tablet ONE (09:10)
[2023-04-16] MEDS ORDERED: DELTASONE 5 MG ONE (09:10)
[2023-04-16] MEDS ORDERED: Docusate Sodium 100 MG ONE (09:11)
[2023-04-16] MEDS ORDERED: THERAGRAN MULTIVITAMIN ONE (09:11)
[2023-04-16] MEDS: Klor Con PO SCH ×2 (09:13→14:04)
[2023-04-16] MEDS: VITA-BEE WITH C PO SCH (09:14)
[2023-04-16] MEDS: Docusate Sodium 100 MG PO SCH ×2 (09:15→09:23)
[2023-04-16] MEDS: Cymbalta 30 MG Capsule PO SCH (09:16)
[2023-04-16] MEDS: Protonix 40MG Tablet PO SCH ×2 (09:16→09:28)
[2023-04-16] MEDS: Singulair 10 MG PO SCH (09:16)
[2023-04-16] MEDS: Zocor 10MG PO SCH ×2 (09:16→09:30)
[2023-04-16] MEDS: Lyrica 50MG PO SCH ×2 (09:16→22:31)
[2023-04-16] MEDS: THERAGRAN MULTIVITAMIN PO SCH (09:16)
[2023-04-16] MEDS: DELTASONE 5 MG PO SCH (09:16)
[2023-04-16] MEDS: SYNTHROID 50 MCG PO SCH ×2 (09:16→09:27)
[2023-04-16] MEDS ORDERED: REQUIP 2MG TAB PO PRN (09:32)
[2023-04-16] MEDS ORDERED: REQUIP 2MG TAB PO SCH (10:00)
[2023-04-16] MEDS ORDERED: NON-FORMULARY ITEM (Duloxetine Hcl [Duloxetine Hcl] 60 MG Capsule.Dr) PO SCH (10:00)
[2023-04-16] MEDS ORDERED: FLUTICASONE-SALMETEROL 250-50 IH SCH (10:00)
[2023-04-16] MEDS ORDERED: NON-FORMULARY ITEM (Multivitamin/Iron/Folic Acid [Centrum Adults Tablet] 1 EACH Tablet) PO SCH (10:00)
[2023-04-16] MEDS ORDERED: NON-FORMULARY ITEM (Vitamin B Complex [Vitamin B Complex] 1 EACH Tablet) PO SCH (10:00)
[2023-04-16] MEDS ORDERED: NON-FORMULARY ITEM (Vibegron [Gemtesa] 75 MG Tablet) PO SCH (10:00)
[2023-04-16] MEDS ORDERED: NON-FORMULARY ITEM (Ropinirole Hcl [Ropinirole Hcl] 1 MG Tablet) PO SCH (10:00)
[2023-04-16] MEDS ORDERED: MAG-OX 400 PO SCH (10:00)
--- NOTE | 2023-04-16 13:26 | PCM.NOTE ---
Date and Time: 04/16/23 1312 Subjective Assessment: 04/15 This is a 72-year-old female admitted to [facility] for evaluation of syncope and orthostatic hypotension. She has past medical history of hypothyroid, peripheral neuropathy, hypertension, IBS, RA, CKD. She was seen by her primary care physician today for evaluation after suffering a fall and hitting her head approx 2 weeks ago related to tripping over yard ornament. Since that time she reports episodes of presyncope and syncope. She also reports initiating Metolazone which completely resolved her edema but has left her feeling dehydrated. She also developed nausea followed by 4 days of diarrhea. No fever, chills, sick contacts. Today at her physician's office she again had an episode of near syncope orthostatic blood pressure was checked in the ED and blood pressure found to drop from 140s to the 80s. She was given IV fluids and repeat blood pressures were checked and she continued to be orthostatic. Labs were significant for WBC of 10, D-dimer 0.81, sodium 132, potassium 3.2, serum bicarb 36, anion gap 17, creatinine 2.3 (1.04 Dec 2022), glucose 104, UA negative for pyuria. CT head showed no acute pathology in the ED she received [place] 20 mEq of potassium and normal saline. 04/16 Pt resting in bed. She reports feeling better today. She explains whenever she takes metolazone she gets symptomatic. She is only able to take this medication once a week instead of twice weekly as prescribed. Will restart metoprolol today. Will continue to hold metolazone. Will restart torsemide tomorrow. Orthostatic vital signs done this morning and non-concerning. She follow with Dr. Davila - nephrology. She has an appointment made for next Saturday for f/u. Potassium was low this morning at 2.9 and replaced. Placed on potassium replacement protocol. Echo results are pending. She cannot have a VQ scan until . D-dimer is slightly elevated and most likley r/t CKD. Denies CP, SOB, abd pain, N/V/D, H/A, dizziness, or lightheadedness. - Review of Systems Constitutional: No Fever, No Chills Eyes: No Symptoms Ears, Nose, & Throat: No Symptoms Respiratory: No Cough, No Short Of Breath Cardiac: No Chest Pain, No Edema, No Syncope Abdominal/Gastrointestinal: No Abdominal Pain, No Nausea, No Vomiting, No Diarrhea Genitourinary Symptoms: No Dysuria Musculoskeletal: No Back Pain, No Neck Pain Skin: Skin Lesions (BLLE brusing in various stages of healing, + abrasions), No Rash Neurological: No Dizziness, No Focal Weakness, No Sensory Changes Psychological: No Symptoms Endocrine: No Symptoms Hematologic/Lymphatic: No Symptoms Immunological/Allergic: No Symptoms Objective Exam General Appearance: no apparent distress, alert, obese Neurologic Exam: alert, oriented x 3, cooperative, normal mood/affect, nml cerebellar function, sensation nml, No motor deficits Skin Exam: normal color, warm, dry, abrasion (BLLE covered, Bruising BLLE in various stages of healing.) Eye Exam: PERRL, EOMI, eyes nml inspection Ears, Nose, Throat Exam: normal ENT inspection, pharynx normal, moist mucous membranes Neck Exam: normal inspection, non-tender, supple, full range of motion Respiratory Exam: normal breath sounds, lungs clear, No respiratory distress Cardiovascular Exam: regular rate/rhythm, normal heart sounds Gastrointestinal/Abdomen Exam: soft, No tenderness, No mass Extremity Exam: normal inspection, normal range of motion Back Exam: normal inspection, normal range of motion, No CVA tenderness, No vertebral tenderness Pelvic Exam: deferred Rectal Exam: deferred OBJECTIVE DATA Vital Signs: Vital Signs - 24 hr Temp Pulse Resp BP BP Pulse Ox 04/16/23 11:40 97.8 F 69 18 154/70 98 04/16/23 07:39 16 04/16/23 06:43 97.6 F 60 16 185/85 96 04/16/23 06:33 68 16 91 L 04/16/23 04:00 95.6 F 62 17 131/65 94 L 04/16/23 00:05 65 16 95 04/16/23 00:00 63 16 04/15/23 22:47 70 124/59 04/15/23 22:00 98.1 F 63 16 124/59 94 L 04/15/23 21:42 81 142/59 04/15/23 21:40 98.1 F 73 16 163/72 94 L 04/15/23 21:34 94 L 04/15/23 21:00 67 12 124/63 94 L 04/15/23 20:57 94 L 04/15/23 20:51 67 16 122/73 93 L 04/15/23 20:40 68 14 122/62 92 L 04/15/23 20:31 68 15 89/61 94 L 04/15/23 20:21 69 12 128/71 94 L 04/15/23 20:12 74 16 142/67 94 L 04/15/23 20:09 69 16 139/77 94 L 04/15/23 20:04 70 18 105/67 96 04/15/23 20:02 80 23 111/62 92 L 04/15/23 20:00 78 16 115/62 93 L 04/15/23 19:51 61 19 116/65 93 L 04/15/23 19:31 67 11 L 118/89 93 L 04/15/23 19:21 68 14 144/69 93 L 04/15/23 19:11 67 20 147/82 96 04/15/23 19:05 70 19 147/77 93 L 04/15/23 16:30 67 12 109/66 04/15/23 15:10 64 11 L 136/71 92 L 04/15/23 15:00 63 21 130/71 92 L 04/15/23 14:55 94 L 04/15/23 14:50 65 18 118/79 95 04/15/23 14:42 63 19 134/75 95 04/15/23 14:41 65 11 L 99/70 95 04/15/23 14:22 97.2 F 70 20 118/67 94 L Pain Assessment - Last Documented Pain Intensity 0 Intake and Output: Intake & Output 04/14/23 04/15/23 04/16/23 04/17/23 11:59 11:59 11:59 11:59 Intake Total 480 240 Balance 480 240 Weight 116.1 kg Lab Results: Lab Results-Last 24 Hours 04/15/23 04/15/23 04/15/23 Range/Units 14:45 14:45 14:45 WBC (4.0-10.5) x10^3/uL RBC (4.1-5.4) x10^6/uL Hgb (12.0-16.0) g/dL Hct (35-47) % MCV (78-100) fL MCH (26-32) pg MCHC (32-36) g/dL RDW (11.5-14.0) % Plt Count (150-450) x10^3/uL MPV (7.5-11.0) fL Gran % (36.0-66.0) % Immature Gran % (Auto) (0.00-0.4) % Nucleat RBC Rel Count (0.00-0.1) % Eos # (Auto) (0-0.5) x10^3/uL Immature Gran # (Auto) (0.00-0.03) x10^3u/L Absolute Lymphs (auto) (1.0-4.6) x10^3/uL Absolute Monos (auto) (0.0-1.3) x10^3/uL Absolute Nucleated RBC (0.00-0.01) x10^3u/L Lymphocytes % (24.0-44.0) % Monocytes % (0.0-12.0) % Eosinophils % (0.00-5.0) % Basophils % (0.0-0.4) % Absolute Granulocytes (1.4-6.9) x10^3/uL Basophils # (0-0.4) x10^3/uL D-Dimer 0.81 H* (0.0-0.50) mg/L Sodium 132 L (137-145) mmol/L Potassium 3.2 L (3.5-5.1) mmol/L Chloride 82 L (98-107) mmol/L Carbon Dioxide 36 H (22-30) mmol/L Anion Gap 17.2 H (5-15) MEQ/L BUN 68 H (7-17) mg/dL Creatinine 2.87 H (0.52-1.04) mg/dL Estimated GFR 17.1 ML/MIN Glucose 104 (74-106) mg/dL Calcium 9.9 (8.4-10.2) mg/dL Magnesium 4.3 H (1.6-2.3) mg/dL Total Bilirubin 0.60 (0.2-1.3) mg/dL AST 41 H (14-36) U/L ALT 30 (0-35) U/L Alkaline Phosphatase 139 H (38-126) U/L Troponin I 0.020 (0.000-0.034) ng/mL NT-Pro-B Natriuret Pep (<300) pg/mL Serum Total Protein 7.4 (6.3-8.2) g/dL Albumin 4.3 (3.5-5.0) g/dL Urine Color (Yellow) Urine Appearance (Clear) Urine pH (4.6-8.0) Ur Specific [place] (1.005-1.030) Urine Protein (Negative) Urine Glucose (UA) (Negative) mg/dL Urine Ketones (Negative) Urine Blood (Negative) Urine Nitrite (Negative) Urine Bilirubin (Negative) Urine Urobilinogen (0.2) mg/dL Ur Leukocyte Esterase (Negative) U Hyaline Cast (Auto) (0-2) /LPF Urine Microscopic RBC (0-5) /HPF Urine Microscopic WBC (0-5) /HPF Ur Epithelial Cells (None Seen) /HPF Urine Bacteria (None Seen) /HPF Urine Culture Reflexed (NO) Influenza Type A Ag (NEGATIVE) Influenza Type B Ag (NEGATIVE) RSV (PCR) (NEGATIVE) SARS-CoV-2 (PCR) (NEGATIVE) 04/15/23 04/15/23 04/15/23 Range/Units 14:59 16:35 19:05 WBC 10.0 (4.0-10.5) x10^3/uL RBC 4.45 (4.1-5.4) x10^6/uL Hgb 13.0 (12.0-16.0) g/dL Hct 40.8 (35-47) % MCV 91.7 (78-100) fL MCH 29.2 (26-32) pg MCHC 31.9 L (32-36) g/dL RDW 14.2 H (11.5-14.0) % Plt Count 216 (150-450) x10^3/uL MPV 9.8 (7.5-11.0) fL Gran % 69.9 H (36.0-66.0) % Immature Gran % (Auto) 0.3 (0.00-0.4) % Nucleat RBC Rel Count 0.0 (0.00-0.1) % Eos # (Auto) 0.19 (0-0.5) x10^3/uL Immature Gran # (Auto) 0.03 (0.00-0.03) x10^3u/L Absolute Lymphs (auto) 1.36 (1.0-4.6) x10^3/uL Absolute Monos (auto) 1.39 H (0.0-1.3) x10^3/uL Absolute Nucleated RBC 0.00 (0.00-0.01) x10^3u/L Lymphocytes % 13.6 L (24.0-44.0) % Monocytes % 13.9 H (0.0-12.0) % Eosinophils % 1.9 (0.00-5.0) % Basophils % 0.4 (0.0-0.4) % Absolute Granulocytes 7.02 H (1.4-6.9) x10^3/uL Basophils # 0.04 (0-0.4) x10^3/uL D-Dimer (0.0-0.50) mg/L Sodium (137-145) mmol/L Potassium (3.5-5.1) mmol/L Chloride (98-107) mmol/L Carbon Dioxide (22-30) mmol/L Anion Gap (5-15) MEQ/L BUN (7-17) mg/dL Creatinine (0.52-1.04) mg/dL Estimated GFR ML/MIN Glucose (74-106) mg/dL Calcium (8.4-10.2) mg/dL Magnesium (1.6-2.3) mg/dL Total Bilirubin (0.2-1.3) mg/dL AST (14-36) U/L ALT (0-35) U/L Alkaline Phosphatase (38-126) U/L Troponin I 0.013 (0.000-0.034) ng/mL NT-Pro-B Natriuret Pep (<300) pg/mL Serum Total Protein (6.3-8.2) g/dL Albumin (3.5-5.0) g/dL Urine Color Yellow (Yellow) Urine Appearance Clear (Clear) Urine pH 7.5 (4.6-8.0) Ur Specific [place] <=1.005 (1.005-1.030) Urine Protein Negative (Negative) Urine Glucose (UA) Negative (Negative) mg/dL Urine Ketones Negative (Negative) Urine Blood Negative (Negative) Urine Nitrite Negative (Negative) Urine Bilirubin Negative (Negative) Urine Urobilinogen 0.2 (0.2) mg/dL Ur Leukocyte Esterase Negative (Negative) U Hyaline Cast (Auto) NONE SEEN (0-2) /LPF Urine Microscopic RBC 0-2 (0-5) /HPF Urine Microscopic WBC 0-2 (0-5) /HPF Ur Epithelial Cells None Seen (None Seen) /HPF Urine Bacteria None Seen (None Seen) /HPF Urine Culture Reflexed ORDERED SEPARATELY (NO) Influenza Type A Ag (NEGATIVE) Influenza Type B Ag (NEGATIVE) RSV (PCR) (NEGATIVE) SARS-CoV-2 (PCR) (NEGATIVE) 04/15/23 04/15/23 04/16/23 Range/Units 23:20 23:20 04:00 WBC 6.6 (4.0-10.5) x10^3/uL RBC 4.45 (4.1-5.4) x10^6/uL Hgb 13.0 (12.0-16.0) g/dL Hct 40.9 (35-47) % MCV 91.9 (78-100) fL MCH 29.2 (26-32) pg MCHC 31.8 L (32-36) g/dL RDW 14.0 (11.5-14.0) % Plt Count 193 (150-450) x10^3/uL MPV 9.7 (7.5-11.0) fL Gran % 51.7 (36.0-66.0) % Immature Gran % (Auto) 0.5 H (0.00-0.4) % Nucleat RBC Rel Count 0.0 (0.00-0.1) % Eos # (Auto) 0.25 (0-0.5) x10^3/uL Immature Gran # (Auto) 0.03 (0.00-0.03) x10^3u/L Absolute Lymphs (auto) 1.96 (1.0-4.6) x10^3/uL Absolute Monos (auto) 0.89 (0.0-1.3) x10^3/uL Absolute Nucleated RBC 0.00 (0.00-0.01) x10^3u/L Lymphocytes % 29.7 (24.0-44.0) % Monocytes % 13.5 H (0.0-12.0) % Eosinophils % 3.8 (0.00-5.0) % Basophils % 0.8 (0.0-0.4) % Absolute Granulocytes 3.41 (1.4-6.9) x10^3/uL Basophils # 0.05 (0-0.4) x10^3/uL D-Dimer (0.0-0.50) mg/L Sodium (137-145) mmol/L Potassium (3.5-5.1) mmol/L Chloride (98-107) mmol/L Carbon Dioxide (22-30) mmol/L Anion Gap (5-15) MEQ/L BUN (7-17) mg/dL Creatinine (0.52-1.04) mg/dL Estimated GFR ML/MIN Glucose (74-106) mg/dL Calcium (8.4-10.2) mg/dL Magnesium (1.6-2.3) mg/dL Total Bilirubin (0.2-1.3) mg/dL AST (14-36) U/L ALT (0-35) U/L Alkaline Phosphatase (38-126) U/L Troponin I 0.014 (0.000-0.034) ng/mL NT-Pro-B Natriuret Pep (<300) pg/mL Serum Total Protein (6.3-8.2) g/dL Albumin (3.5-5.0) g/dL Urine Color (Yellow) Urine Appearance (Clear) Urine pH (4.6-8.0) Ur Specific [place] (1.005-1.030) Urine Protein (Negative) Urine Glucose (UA) (Negative) mg/dL Urine Ketones (Negative) Urine Blood (Negative) Urine Nitrite (Negative) Urine Bilirubin (Negative) Urine Urobilinogen (0.2) mg/dL Ur Leukocyte Esterase (Negative) U Hyaline Cast (Auto) (0-2) /LPF Urine Microscopic RBC (0-5) /HPF Urine Microscopic WBC (0-5) /HPF Ur Epithelial Cells (None Seen) /HPF Urine Bacteria (None Seen) /HPF Urine Culture Reflexed (NO) Influenza Type A Ag NEGATIVE (NEGATIVE) Influenza Type B Ag NEGATIVE (NEGATIVE) RSV (PCR) NEGATIVE (NEGATIVE) SARS-CoV-2 (PCR) NEGATIVE (NEGATIVE) 04/16/23 04/16/23 Range/Units 04:43 05:24 WBC (4.0-10.5) x10^3/uL RBC (4.1-5.4) x10^6/uL Hgb (12.0-16.0) g/dL Hct (35-47) % MCV (78-100) fL MCH (26-32) pg MCHC (32-36) g/dL RDW (11.5-14.0) % Plt Count (150-450) x10^3/uL MPV (7.5-11.0) fL Gran % (36.0-66.0) % Immature Gran % (Auto) (0.00-0.4) % Nucleat RBC Rel Count (0.00-0.1) % Eos # (Auto) (0-0.5) x10^3/uL Immature Gran # (Auto) (0.00-0.03) x10^3u/L Absolute Lymphs (auto) (1.0-4.6) x10^3/uL Absolute Monos (auto) (0.0-1.3) x10^3/uL Absolute Nucleated RBC (0.00-0.01) x10^3u/L Lymphocytes % (24.0-44.0) % Monocytes % (0.0-12.0) % Eosinophils % (0.00-5.0) % Basophils % (0.0-0.4) % Absolute Granulocytes (1.4-6.9) x10^3/uL Basophils # (0-0.4) x10^3/uL D-Dimer (0.0-0.50) mg/L Sodium 136 L (137-145) mmol/L Potassium 2.9 L* (3.5-5.1) mmol/L Chloride 88 L (98-107) mmol/L Carbon Dioxide 38 H (22-30) mmol/L Anion Gap 12.9 (5-15) MEQ/L BUN 57 H (7-17) mg/dL Creatinine 2.50 H (0.52-1.04) mg/dL Estimated GFR 20.0 ML/MIN Glucose 93 (74-106) mg/dL Calcium 9.4 (8.4-10.2) mg/dL Magnesium 3.5 H (1.6-2.3) mg/dL Total Bilirubin 0.50 (0.2-1.3) mg/dL AST 31 (14-36) U/L ALT 28 (0-35) U/L Alkaline Phosphatase 144 H (38-126) U/L Troponin I (0.000-0.034) ng/mL NT-Pro-B Natriuret Pep 395 (<300) pg/mL Serum Total Protein 6.9 (6.3-8.2) g/dL Albumin 4.0 (3.5-5.0) g/dL Urine Color (Yellow) Urine Appearance (Clear) Urine pH (4.6-8.0) Ur Specific [place] (1.005-1.030) Urine Protein (Negative) Urine Glucose (UA) (Negative) mg/dL Urine Ketones (Negative) Urine Blood (Negative) Urine Nitrite (Negative) Urine Bilirubin (Negative) Urine Urobilinogen (0.2) mg/dL Ur Leukocyte Esterase (Negative) U Hyaline Cast (Auto) (0-2) /LPF Urine Microscopic RBC (0-5) /HPF Urine Microscopic WBC (0-5) /HPF Ur Epithelial Cells (None Seen) /HPF Urine Bacteria (None Seen) /HPF Urine Culture Reflexed (NO) Influenza Type A Ag (NEGATIVE) Influenza Type B Ag (NEGATIVE) RSV (PCR) (NEGATIVE) SARS-CoV-2 (PCR) (NEGATIVE) Radiology Exams: Radiology Procedures Category Date Time Status CHEST 2 VIEWS (PA AND LAT) Routine Exams 04/18/23 10:00 Ordered ECHO W/2D AND DOPPLER [US] Routine Exams 04/16/23 22:51 Taken HEAD WITHOUT CONTRAST [CT] Stat Exams 04/15/23 14:52 Completed LUMBAR SPINE W/O [CT] Stat Exams 04/15/23 14:53 Completed PULMONARY PERF VENTILATION [NUCMED] Stat Exams 04/16/23 21:34 Ordered Assessment/Plan (1) Orthostatic hypotension Current Visit: Yes Status: Acute Assessment & Plan: -Monitor on telemetry -Hold torsemide, Metolazone -continue metoprolol -Gentle IV fluids -Repeat orthostatics this morning nonconcerning. Code(s): I95.1 - ORTHOSTATIC HYPOTENSION (2) Syncope Current Visit: Yes Status: Acute Assessment & Plan: - pt had 1 episode in physician office. Without fall or injury per pt. - CT head: 04/15/23 Impression: Continued nonacute senile brain. - Echo pending - Lumbar spine CT: 04/15/23 Again osteopenia, multilevel degenerative spondylosis, scoliosis, and arteriosclerotic disease. No new/acute findings. 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 - Pt reports CKD stage 3 to stage 4 - Hold metolazone - Restart Torsemide 100mg BID - Acute on chronic Code(s): N18.9 - CHRONIC KIDNEY DISEASE, UNSPECIFIED (5) HTN (hypertension) Current Visit: Yes Status: Acute Assessment & Plan: - restart metoprolol Code(s): I10 - ESSENTIAL (PRIMARY) HYPERTENSION (6) Obesity (BMI 30-39.9) Current Visit: Yes Status: Acute Assessment & Plan: - advised diet control Code(s): E66.9 - OBESITY, UNSPECIFIED (7) Hyponatremia Current Visit: Yes Status: Acute Assessment & Plan: - Na+ 132 04/15 - Na+ 136 04/16- improved Code(s): E87.1 - HYPO-OSMOLALITY AND HYPONATREMIA (8) Dizziness Current Visit: Yes Status: Acute Assessment & Plan: - resolved since admission Code(s): R42 - DIZZINESS AND GIDDINESS (9) Elevated d-dimer Current Visit: Yes Status: Acute Assessment & Plan: - D-Dimer 0.81 - most likely r/t CKD - VQ scan cannot be done until VTE: Lovenox PPI: Protonix Code status: Full Next of Kin: Kenia Soliz [phone] Code(s): R79.89 - OTHER SPECIFIED ABNORMAL FINDINGS OF BLOOD CHEMISTRY
[2023-04-16] MEDS: Toprol Xl 50 MG PO SCH ×2 (14:04→22:31)
[2023-04-16] MEDS: VENTOLIN COMMON CANISTER IH SCH ×2 (14:05→19:43)
[2023-04-16] MEDS: HYDROCODONE-ACETAMIN 10-325 MG PO PRN (16:25)
[2023-04-16] MEDS: ENOXAPARIN SODIUM SQ SCH (17:01)
[2023-04-16] MEDS ORDERED: Zocor 10MG PO SCH (22:00)
[2023-04-16] MEDS ORDERED: Protonix 40MG Tablet PO SCH (22:00)
[2023-04-17 04:32] LABS: Hematocrit 41.5 % (35-47); Hemoglobin 12.8 g/dL (12.0-16.0); Mean Cell Volume 95.4 fL (78-100); Mean Corpuscular Hemoglobin 29.4 pg (26-32); Mean Corpuscular Hgb Concent. 30.8 g/dL (32-36); Mean Platelet Volume 9.8 fL (7.5-11.0); Platelet Count 189 x10^3/uL (150-450); Red Blood Count 4.35 x10^6/uL (4.1-5.4); Red Cell Distribution Width 14.5 % (11.5-14.0); White Blood Count 6.9 x10^3/uL (4.0-10.5)
[2023-04-17 04:58] LABS: ANION GAP 8.9 MEQ/L (5-15); Calcium 9.5 mg/dL (8.4-10.2); Creatinine 1 2.08 mg/dL (0.52-1.04); EST GLOMERULAR FILTRATION RATE 24.7 ML/MIN; MAGNESIUM 3.2 mg/dL (1.6-2.3); Potassium 3.7 mmol/L (3.5-5.1)
[2023-04-17] MEDS ORDERED: SYNTHROID 50 MCG PO SCH (05:00)
[2023-04-17] MEDS: VENTOLIN COMMON CANISTER IH SCH (05:51)
[2023-04-17] MEDS: Advair Hfa 115/21 Common canister IH SCH (05:52)
[2023-04-17] MEDS: ENOXAPARIN SODIUM SQ SCH (06:26)
[2023-04-17 06:52] VITALS: O2SAT 97
[2023-04-17] MEDS: Cymbalta 30 MG Capsule PO SCH ×2 (08:28→08:29)
[2023-04-17] MEDS: Docusate Sodium 100 MG PO SCH (08:29)
[2023-04-17] MEDS: Lyrica 50MG PO SCH (08:29)
[2023-04-17] MEDS: Singulair 10 MG PO SCH (08:29)
[2023-04-17] MEDS: THERAGRAN MULTIVITAMIN PO SCH (08:29)
[2023-04-17] MEDS: DELTASONE 5 MG PO SCH (08:29)
[2023-04-17] MEDS: Toprol Xl 50 MG PO SCH (08:29)
[2023-04-17] MEDS: VITA-BEE WITH C PO SCH (08:30)
[2023-04-17] MEDS: HYDROCODONE-ACETAMIN 10-325 MG PO PRN (08:31)
[2023-04-17] MEDS ORDERED: DEMADEX 20 MG PO SCH (10:00)
--- NOTE | 2023-04-17 10:11 | PCM.DS ---
Discharge Summary Date of Admission: 04/15/23 21:24 Date of Discharge: 04/17/23 Admitting Physician: JANIE DENNIS MD Primary Care Provider: DANIELA LAINEZ Allergies Allergies bacitracin [From Neosporin ([id number])] Allergy (Mild, Verified 03/27/22 11:15) rash swelling bacitracin zinc [From Neosporin ([id number])] Allergy (Mild, Verified 12/03/22 08:10) rash swelling lidocaine Allergy (Mild, Verified 12/03/22 08:10) swelling red and inflamed neomycin sulfate [From Neosporin ([id number])] Allergy (Mild, Verified 12/03/22 08:10) rash swelling Penicillins Allergy (Mild, Verified 03/27/22 11:15) rash itching polymyxin B [From Neosporin ([id number])] Allergy (Mild, Verified 12/03/22 08:10) rash swelling Sulfa (Sulfonamide Antibiotics) Allergy (Mild, Verified 12/03/22 08:10) rash itching lisinopril Allergy (Verified 12/03/22 08:10) facial swelling omeprazole [From Prilosec] Allergy (Verified 12/03/22 08:10) headache and abdominal cramping omeprazole magnesium [From Prilosec] Allergy (Verified 12/03/22 08:10) headache and abdominal cramping procaine HCl [From Novocain] Allergy (Verified 12/03/22 08:10) swelling red inflamed Hospital Summary - Hospital Course Hospital Course: 04/15 This is a 72-year-old female admitted to [facility] for evaluation of syncope and orthostatic hypotension. She has past medical history of hypothyroid, peripheral neuropathy, hypertension, IBS, RA, CKD. She was seen by her primary care physician today for evaluation after suffering a fall and hitting her head approx 2 weeks ago related to tripping over yard ornament. Since that time she reports episodes of presyncope and syncope. She also reports initiating Metolazone which completely resolved her edema but has left her feeling d ehydrated. She also developed nausea followed by 4 days of diarrhea. No fever, chills, sick contacts. Today at her physician's office she again had an episode of near syncope orthostatic blood pressure was checked in the ED and blood pressure found to drop from 140s to the 80s. She was given IV fluids and repeat blood pressures were checked and she continued to be orthostatic. Labs were significant for WBC of 10, D-dimer 0.81, sodium 132, potassium 3.2, serum bicarb 36, anion gap 17, creatinine 2.3 (1.04 Dec 2022), glucose 104, UA negative for pyuria. CT head showed no acute pathology in the ED she received Nye 20 mEq of potassium and normal saline. 04/16 Pt resting in bed. She reports feeling better today. She explains whenever she takes metolazone she gets symptomatic. She is only able to take this medication once a week instead of twice weekly as prescribed. Will restart metoprolol today. Will continue to hold metolazone. Will restart torsemide tomorrow. Orthostatic vital signs done this morning and non-concerning. She follow with Dr. Davila - nephrology. She has an appointment made for next Saturday for f/u. Potassium was low this morning at 2.9 and replaced. Placed on potassium replacement protocol. Echo results are pending. She cannot have a VQ scan until . D-dimer is slightly elevated and most likley r/t CKD. Denies CP, SOB, abd pain, N/V/D, H/A, dizziness, or lightheadedness. 04/17 Pt sitting up in bed. She expalins she feels much better. She was able to get up and walk to the bathroom and around in the hallways without any concerns. Restarted her Torsemide this morning. If she continues to do well she can go home later today. LAbs are back to baseline. BP and HR controlled. Denies CP, SOB, abd pain, N/V/D, H/A, dizziness, or lightheadedness. - Vitals & Intake/Output Vital Signs: Vital Signs Temperature 97.6 F 04/17/23 06:51 Pulse Rate 65 04/17/23 06:51 Respiratory Rate 16 04/17/23 07:30 Blood Pressure 130/61 04/17/23 06:51 O2 Sat by Pulse Oximetry 97 04/17/23 06:51 Intake & Output: Intake & Output 04/14/23 04/15/23 04/16/23 04/17/23 11:59 11:59 11:59 11:59 Intake Total 480 720 Balance 480 720 Weight 116.1 kg - Lab Result Diagrams: 04/17/23 04:22 04/17/23 04:22 Lab Results-Last 24 Hrs: Lab Results-Last 24 Hours 04/16/23 04/17/23 04/17/23 Range/Units 15:25 04:22 04:22 WBC 6.9 (4.0-10.5) x10^3/uL RBC 4.35 (4.1-5.4) x10^6/uL Hgb 12.8 (12.0-16.0) g/dL Hct 41.5 (35-47) % MCV 95.4 (78-100) fL MCH 29.4 (26-32) pg MCHC 30.8 L (32-36) g/dL RDW 14.5 H (11.5-14.0) % Plt Count 189 (150-450) x10^3/uL MPV 9.8 (7.5-11.0) fL Sodium 135 L (137-145) mmol/L Potassium 4.1 D 3.7 (3.5-5.1) mmol/L Chloride 93 L (98-107) mmol/L Carbon Dioxide 38 H (22-30) mmol/L Anion Gap 8.9 (5-15) MEQ/L BUN 52 H (7-17) mg/dL Creatinine 2.08 H (0.52-1.04) mg/dL Estimated GFR 24.7 ML/MIN Glucose 95 (74-106) mg/dL Calcium 9.5 (8.4-10.2) mg/dL Magnesium 3.2 H (1.6-2.3) mg/dL Micro Results-Entire Visit: Microbiology 04/15/23 16:35 Urine Culture - Final Catherized NO GROWTH - Radiology Exams Ordered Rad Exams-Entire Visit: Radiology Procedures Category Date Time Status CHEST 2 VIEWS (PA AND LAT) Routine Exams 04/18/23 10:00 Ordered ECHO W/2D AND DOPPLER [US] Routine Exams 04/16/23 22:51 Taken HEAD WITHOUT CONTRAST [CT] Stat Exams 04/15/23 14:52 Completed LUMBAR SPINE W/O [CT] Stat Exams 04/15/23 14:53 Completed PULMONARY PERF VENTILATION [NUCMED] Stat Exams 04/18/23 08:00 Ordered - Procedures and Test Procedures and Tests throughout Hospitalization: Therapy Orders & Screens 04/15/23 21:34 EKG REPEAT IN AM Comment: 04/16/23 00:48 Respiratory Therapy Assessment DAILY Comment: Diagnosis: orthostatic hypotension Discharge Exam General Appearance: no apparent distress, alert Neurologic Exam: alert, oriented x 3, cooperative, normal mood/affect, nml cerebellar function, sensation nml, No motor deficits Eye Exam: PERRL, EOMI, eyes nml inspection Ears, Nose, Throat Exam: normal ENT inspection, pharynx normal, moist mucous membranes Neck Exam: normal inspection, non-tender, supple, full range of motion Respiratory Exam: normal breath sounds, lungs clear, No respiratory distress Cardiovascular Exam: regular rate/rhythm, normal heart sounds Gastrointestinal/Abdomen Exam: soft, No tenderness, No mass Pelvic Exam: deferred Rectal Exam: deferred Back Exam: normal inspection, normal range of motion, No CVA tenderness, No vertebral tenderness Extremity Exam: normal inspection, normal range of motion Skin Exam: normal color, warm, dry Final Diagnosis/Problem List - Final Discharge Diagnosis/Problem (1) Orthostatic hypotension Current Visit: Yes Status: Acute Code(s): I95.1 - ORTHOSTATIC HYPOTENSION (2) Syncope Current Visit: Yes Status: Acute Code(s): R55 - SYNCOPE AND COLLAPSE (3) Hypokalemia Current Visit: Yes Status: Acute Code(s): E87.6 - HYPOKALEMIA (4) CKD (chronic kidney disease) Current Visit: Yes Status: Acute Code(s): N18.9 - CHRONIC KIDNEY DISEASE, UNSPECIFIED (5) HTN (hypertension) Current Visit: Yes Status: Acute Code(s): I10 - ESSENTIAL (PRIMARY) HYPERTENSION (6) Obesity (BMI 30-39.9) Current Visit: Yes Status: Acute Code(s): E66.9 - OBESITY, UNSPECIFIED (7) Hyponatremia Current Visit: Yes Status: Acute Code(s): E87.1 - HYPO-OSMOLALITY AND HYPONATREMIA (8) Dizziness Current Visit: Yes Status: Acute Code(s): R42 - DIZZINESS AND GIDDINESS (9) Elevated d-dimer Current Visit: Yes Status: Acute Assessment & Plan: (1) Orthostatic hypotension Current Visit: Yes Status: Acute Assessment & Plan: 04/16 -Monitor on telemetry -Hold torsemide, Metolazone -continue metoprolol -Gentle IV fluids -Repeat orthostatics this morning nonconcerning. 04/17 - resolved Code(s): I95.1 - ORTHOSTATIC HYPOTENSION (2) Syncope Current Visit: Yes Status: Acute Assessment & Plan: - pt had 1 episode in physician office. Without fall or injury per pt. - CT head: 04/15/23 Impression: Continued nonacute senile brain. - Echo pending - Lumbar spine CT: 04/15/23 Again osteopenia, multilevel degenerative spondylosis, scoliosis, and arteriosclerotic disease. No new/acute findings. 04/17 - resolved Code(s): R55 - SYNCOPE AND COLLAPSE (3) Hypokalemia Current Visit: Yes Status: Acute Assessment & Plan: - K+ 3.2 04/05- replaced - K+ 2.9 04/06- replaced - potassium replacement protocol started - 04/17 3.7 resolved Code(s): E87.6 - HYPOKALEMIA (4) CKD (chronic kidney disease) Current Visit: Yes Status: Acute Assessment & Plan: - Corporate Administrative Assistant- Dr. Davila - Pt reports CKD stage 3 to stage 4 - Hold metolazone - Acute on chronic 04/17 - Restart Torsemide 100mg BID - hold metolazone Code(s): N18.9 - CHRONIC KIDNEY DISEASE, UNSPECIFIED (5) HTN (hypertension) Current Visit: Yes Status: Acute Assessment & Plan: - restart metoprolol - stable - chronic Code(s): I10 - ESSENTIAL (PRIMARY) HYPERTENSION (6) Obesity (BMI 30-39.9) Current Visit: Yes Status: Acute Assessment & Plan: - advised diet control Code(s): E66.9 - OBESITY, UNSPECIFIED (7) Hyponatremia Current Visit: Yes Status: Acute Assessment & Plan: - Na+ 132 04/15 - Na+ 136 04/16- improved - Na +135 Code(s): E87.1 - HYPO-OSMOLALITY AND HYPONATREMIA (8) Dizziness Current Visit: Yes Status: Acute Assessment & Plan: - resolved since admission Code(s): R42 - DIZZINESS AND GIDDINESS (9) Elevated d-dimer Current Visit: Yes Status: Acute Assessment & Plan: - D-Dimer 0.81 - most likely r/t CKD - VQ scan- cancelled Code(s): R79.89 - OTHER SPECIFIED ABNORMAL FINDINGS OF BLOOD CHEMISTRY - Discharge Discharge Date: 04/17/23 Disposition: Home, Self-Care Condition: Stable Prescriptions: Continue Montelukast Sodium 10 mg [Singulair 10 MG] 10 mg PO DAILY Albuterol Sulfate [Proair Hfa] 90 mcg IH BID ALPRAZolam 0.25 MG [xanAX 0.25 MG] 0.25 mg PO DAILY PRN PRN Reason: Anxiety Risedronate Sodium 35 mg [Actonel 35 MG Tablet] 35 mg PO WEEKLY Levothyroxine Sodium 50 Mcg [Synthroid 50 Mcg] 50 mcg PO 0500 Simvastatin 10 mg [Zocor 10MG] 10 mg PO HS Potassium Chloride Tab* [Klor Con] 10 meq PO TID Promethazine HCl 25 mg [Phenergan 25 mg] 25 mg PO TID PRN PRN Reason: Nausea Prednisone 5 mg [Deltasone 5 mg] 5 mg PO DAILY Torsemide 100 mg PO BID Pregabalin 50 mg [Lyrica 50MG] 50 mg PO BID PANTOPRAZOLE 40 mg Tablet [Protonix 40MG Tablet] 1 tab PO HS Nystatin Cream 30 gm [Nystop 30 gm Cream] 1 applic TOP BID PRN PRN PRN Reason: Redness/Irritation Vitamin B Complex 1 tab PO DAILY Multivitamin/Iron/Folic Acid [Centrum Adults Tablet] 1 tab PO DAILY Metoprolol Tartrate 50 mg [Lopressor 50 MG] 50 mg PO BID Magnesium Oxide 400 mg [Mag-Ox 400] 3 cap PO BID Hydrocodone/Acetaminophen [Hydrocodone-Acetamin 10-325 mg] 1 tab PO TIDPRN PRN PRN Reason: Pain Fluticasone Propion/Salmeterol [Fluticasone-Salmeterol 250-50] 1 puff IH BID Docusate Sodium 100 mg [Docusate Sodium 100 MG] 100 mg PO DAILY Capsaicin 1 applic TOP QID PRN PRN PRN Reason: Redness/Irritation Albuterol Sulfate [Proair Respiclick] 2 puffs IH Q4HPRN PRN PRN Reason: Shortness Of Breath/Wheezing Acetaminophen 325 mg [Tylenol 325 mg] 2 tab PO Q4HPRN PRN PRN Reason: Pain Duloxetine HCl 1 cap PO DAILY Vibegron [Gemtesa] 1 tab PO DAILY Ropinirole 2Mg [Requip 2Mg Tab] 2 - 6 mg PO HS Instructions: Orthostatic Hypotension (DC), Preventing falls in adults Follow up with: DANIELA LAINEZ NP [Primary Care Provider] - GIRMA DAVILA [CONSULTING PHYSICIAN] -
[2023-04-17 11:19] VITALS: BP 136/61; PULSE 71; RESP 18; TEMP 96.3
== END 2023-04-17 12:55 | disposition home or self-care (01) ==
LOC: ED 14:11 → MED SURG 21:24
PROVIDERS: ADMIT Internal Medicine; ATTEND Internal Medicine
DX: I95.1 Orthostatic hypotension (principal); E87.6 Hypokalemia; I12.9 Hypertensive chronic kidney disease with stage 1 through stage 4 chronic kidney disease, or unspecified chronic kidney disease; N18.9 Chronic kidney disease, unspecified; E66.9 Obesity, unspecified; E87.1 Hypo-osmolality and hyponatremia; R42 Dizziness and giddiness; G62.9 Polyneuropathy, unspecified; E03.9 Hypothyroidism, unspecified; R79.89 Other specified abnormal findings of blood chemistry; Z79.899 Other long term (current) drug therapy; Z20.828 Contact with and (suspected) exposure to other viral communicable diseases; Z85.828 Personal history of other malignant neoplasm of skin
CPT/HCPCS: 0241U; 36000; 36415; 70450; 72131; 80048; 80053; 81001; 83735; 83880; 84132; 84484; 85025; 85027; 85379; 87086; 93005; 93306; 94640; 94760; 96360; 96361; 96372; 99285; P9612; Q3014; 93268; J1650; A9270-GY; G0378

== ENCOUNTER 2024-12-14 15:29 | Observation (INO) | payer MEDICARE ==
--- NOTE | 2024-12-14 15:52 | ERPHSYRPT ---
- History of Present Illness Time Seen by Provider: 12/14/24 15:49 Historian: patient Exam Limitations: no limitations Patient Subjective Stated Complaint: patient came in to ED with complaints of chest pain,s tarted feeling discomfort 3 days ago, this morning the pain radiated into right breast Triage Nursing Assessment: patient walked into ED with complaints of chest pain, vitals wnl, swelling noted to BLE, nonpitting Physician History: 74-year-old female presents to emergency department as a referral from her primary care doctor for evaluation of chest pain that started 3 days ago. Patient reports chest pain is substernal but radiates to her left breast. No associated nausea vomiting or diaphoresis. Symptoms are mild to moderate in intensity. No specific worsening or improving factors. Patient voices no other complaints or concerns at this time. Portions of this note were created with voice recognition technology. There may be grammatical, spelling, punctuation or sound alike errors Timing/Duration: today Activities at Onset: none Quality: aching Location: substernal Severity of Pain-Max: moderate Severity of Pain-Current: mild Modifying Factors: Improves With: nothing Associated Symptoms: denies symptoms Prior Chest Pain/Cardiac Workup: no prior chest pain Nitro Today/Relief: no nitro taken today Aspirin Treatment Today: no aspirin today Allergies/Adverse Reactions: bacitracin [From Neosporin ([id number])] Allergy (Mild, Verified 03/27/22 11:15) rash swelling bacitracin zinc [From Neosporin ([id number])] Allergy (Mild, Verified 12/03/22 08:10) rash swelling lidocaine Allergy (Mild, Verified 12/03/22 08:10) swelling red and inflamed neomycin sulfate [From Neosporin ([id number])] Allergy (Mild, Verified 12/03/22 08:10) rash swelling Penicillins Allergy (Mild, Verified 03/27/22 11:15) rash itching polymyxin B [From Neosporin ([id number])] Allergy (Mild, Verified 12/03/22 08:10) rash swelling Sulfa (Sulfonamide Antibiotics) Allergy (Mild, Verified 12/03/22 08:10) rash itching lisinopril Allergy (Verified 12/03/22 08:10) facial swelling omeprazole [From Prilosec] Allergy (Verified 12/03/22 08:10) headache and abdominal cramping omeprazole magnesium [From Prilosec] Allergy (Verified 12/03/22 08:10) headache and abdominal cramping procaine HCl [From Novocain] Allergy (Verified 12/03/22 08:10) swelling red inflamed Home Medications: ALPRAZolam 0.25 MG [xanAX 0.25 MG] 0.25 mg PO DAILY PRN 03/25/19 [History] Albuterol Sulfate [Proair Hfa] 90 mcg IH BID 03/25/19 [History] Levothyroxine Sodium 50 Mcg [Synthroid 50 Mcg] 50 mcg PO 0500 03/25/19 [History] Montelukast Sodium 10 mg [Singulair 10 MG] 10 mg PO DAILY 03/25/19 [History] Potassium Chloride Tab* [Klor Con] 10 meq PO TID 03/25/19 [History] Prednisone 5 mg [Deltasone 5 mg] 5 mg PO DAILY 03/25/19 [History] Promethazine HCl 25 mg [Phenergan 25 mg] 25 mg PO TID PRN 03/25/19 [History] Risedronate Sodium 35 mg [Actonel 35 MG Tablet] 35 mg PO WEEKLY 03/25/19 [History] Simvastatin 10 mg [Zocor 10MG] 10 mg PO HS 03/25/19 [History] Acetaminophen 325 mg [Tylenol 325 mg] 2 tab PO Q4HPRN PRN 12/03/22 [History] Albuterol Sulfate [Proair Respiclick] 2 puffs IH Q4HPRN PRN 12/03/22 [History] Capsaicin 1 applic TOP QID PRN PRN 12/03/22 [History] Docusate Sodium 100 mg [Docusate Sodium 100 MG] 100 mg PO DAILY 12/03/22 [History] Duloxetine HCl 1 cap PO DAILY 12/03/22 [History] Fluticasone Propion/Salmeterol [Fluticasone-Salmeterol 250-50] 1 puff IH BID 12/03/22 [History] Hydrocodone/Acetaminophen [Hydrocodone-Acetamin 10-325 mg] 1 tab PO TIDPRN PRN 12/03/22 [History] Magnesium Oxide 400 mg [Mag-Ox 400] 3 cap PO BID 12/03/22 [History] Metoprolol Tartrate 50 mg [Lopressor 50 MG] 50 mg PO BID 12/03/22 [History] Multivitamin/Iron/Folic Acid [Centrum Adults Tablet] 1 tab PO DAILY 12/03/22 [History] Nystatin Cream 30 gm [Nystop 30 gm Cream] 1 applic TOP BID PRN PRN 12/03/22 [History] PANTOPRAZOLE 40 mg Tablet [Protonix 40MG Tablet] 1 tab PO HS 12/03/22 [History] Pregabalin 50 mg [Lyrica 50MG] 50 mg PO BID 12/03/22 [History] Torsemide 100 mg PO BID 12/03/22 [History] Vibegron [Gemtesa] 1 tab PO DAILY 12/03/22 [History] Vitamin B Complex 1 tab PO DAILY 12/03/22 [History] Ropinirole 2Mg [Requip 2Mg Tab] 2 - 6 mg PO HS 04/16/23 [History] Hx Tetanus, Diphtheria Vaccination/Date Given: Yes Hx Influenza Vaccination/Date Given: No Hx Pneumococcal Vaccination/Date Given: Yes Travel Risk - International Travel Have you traveled outside of the country in past 3 weeks: No - Emerging Infectious Disease Are you exhibiting symptoms associated with any current EIDs: No - Review of Systems Constitutional: No Symptoms, No Fever, No Chills Eyes: No Symptoms Ears, Nose, & Throat: No Symptoms Respiratory: No Symptoms, No Cough, No Dyspnea Cardiac: No Symptoms, No Chest Pain, No Edema, No Syncope Abdominal/Gastrointestinal: No Symptoms, No Abdominal Pain, No Nausea, No Vomiting, No Diarrhea Genitourinary Symptoms: No Symptoms, No Dysuria Musculoskeletal: No Symptoms, No Back Pain, No Neck Pain Skin: No Symptoms, No Rash Neurological: No Symptoms, No Dizziness, No Focal Weakness, No Sensory Changes Psychological: No Symptoms Endocrine: No Symptoms Hematologic/Lymphatic: No Symptoms Immunological/Allergic: No Symptoms All Other Systems: Reviewed and Negative - Past Medical History Pertinent Past Medical History: Yes Neurological History: Migraines, Peripheral Neuropathy ENT History: Cataracts Cardiac History: Hypertension Respiratory History: Asthma Endocrine Medical History: Hypothyroidism Musculoskeletal History: Arthritis GI Medical History: Irritable Bowel History: Renal Disease Psycho-Social History: No Pertinent History Female Reproductive Disorders: No Pertinent History 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 PSH: SCHEDULED FOR CERVICAL NECK AND BACK, BUT CANCELLED DUE TO CAREGIVER FOR . - Past Surgical History Past Surgical History: Yes Neuro Surgical History: No Pertinent History Cardiac: Cardiac Catheterization Respiratory: No Pertinent History Gastrointestinal: Cholecystectomy Genitourinary: No Pertinent History Musculoskeletal: Joint Replacement Female Surgical History: Lumpectomy, Tubal Ligation Other Surgical History: excision x 7 to left breast/axilla and 1 to right breast Significant Family History: no pertinent family hx - Social History Smoking Status: Never smoker Exposure to second hand smoke: Yes Drug Use: none - Social Determinants of Health Will the patient participate in the screening: Yes Do you worry about a steady place to live?: No Do you have any problems with any of the following?: No known problems In the past 12 months,have you had to go without utilities?: No Transportation Issues: No Has anyone in your support network made you feel unsafe?: No Have you or anyone in your house had to go w/o enough food: No - Nursing Vital Signs Nursing Vital Signs: Initial Vital Signs Temperature 97.4 F 12/14/24 15:32 Pulse Rate 80 12/14/24 15:32 Respiratory Rate 16 12/14/24 15:32 Blood Pressure 163/99 12/14/24 15:32 O2 Sat by Pulse Oximetry 96 12/14/24 15:32 Pain Scale Pain Intensity 3 - Physical Exam General Appearance: no apparent distress, alert Eye Exam: PERRL/EOMI, eyes nml inspection Ears, Nose, Throat Exam: normal ENT inspection, moist mucous membranes Neck Exam: normal inspection, non-tender, supple, full range of motion Respiratory Exam: normal breath sounds, lungs clear, airway intact, No respiratory distress Cardiovascular Exam: regular rate/rhythm, normal heart sounds, normal peripheral pulses Gastrointestinal/Abdomen Exam: soft, No tenderness, No mass Back Exam: normal inspection, No CVA tenderness, No vertebral tenderness Extremity Exam: normal inspection, normal range of motion Neurologic Exam: alert, oriented x 3, cooperative, normal mood/affect, sensation nml, No motor deficits Skin Exam: normal color, warm, dry Lymphatic Exam: No adenopathy SpO2 Interpretation: normal SpO2: 96 O2 Delivery: Room Air - Course Nursing assessment & vital signs reviewed: Yes EKG Interpreted by Me: RATE (80), Sinus Rhythm, NORMAL AXIS, NORMAL INTERVALS, NORMAL QRS - Radiology Exams Chest X-ray Interpretation: Interpreted by me (No acute findings. This is a preliminary read. Formal read pending) Ordered Tests: Active Orders 24 hr Category Date Time Status Sales Associate Key Holder STAT Care 12/14/24 15:49 Active EKG-ER Only STAT Care 12/14/24 15:48 Active IV Insertion STAT Care 12/14/24 15:48 Active Pulse Oximetry (ED) STAT Care 12/14/24 15:48 Active CHEST 1 VIEW (PORTABLE) Stat Exams 12/14/24 16:54 Ordered CBC W DIFF Stat Lab 12/14/24 16:03 Completed CMP Stat Lab 12/14/24 16:03 Completed D-DIMER QUANTITATIVE Stat Lab 12/14/24 16:03 Completed NT PRO BNPII Stat Lab 12/14/24 16:03 Completed TROPONIN Q4H Lab 12/14/24 16:03 Completed TROPONIN Q4H Lab 12/14/24 20:00 Ordered TROPONIN Q4H Lab 12/15/24 00:00 Ordered Transfer Order Routine Transfer 12/14/24 Ordered Medication Summary Generic Name Dose Route Start Last Admin Trade Name Freq PRN Reason Stop Dose Admin Aspirin 81 mg 12/15/24 17:04 Aspirin 81 Mg Tablet.Ec PO 12/15/24 17:05 ONCE ONE Discontinued Medications Generic Name Dose Route Start Last Admin Trade Name Freq PRN Reason Stop Dose Admin Enoxaparin Sodium 40 mg 12/14/24 16:52 Enoxaparin Sodium 40 Mg/0.4 Ml Syringe SQ 12/14/24 16:53 STAT ONE Enoxaparin Sodium Confirm 12/14/24 16:58 Enoxaparin Sodium 80 Mg/0.8 Ml Syringe Administered 12/14/24 16:59 Dose 80 mg SQ .STK-MED ONE Enoxaparin Sodium 40 mg 12/14/24 17:03 Enoxaparin Sodium 80 Mg/0.8 Ml Syringe SQ 12/14/24 17:04 1XONLY ONE Nitroglycerin 1 gm 12/14/24 17:04 Nitroglycerin 1 Gm Packet TOP 12/14/24 17:05 STAT ONE Lab/Rad Data: Laboratory Result Diagrams 12/14/24 16:03 12/14/24 16:03 Laboratory Results 12/14/24 12/14/24 12/14/24 Range/Units 16:03 16:03 16:03 WBC (3.98-10.04) x10^3/uL RBC (3.93-5.22) x10^6/uL Hgb (11.2-15.7) g/dL Hct (34.1-44.9) % MCV (79.4-94.8) fL MCH (25.6-32.2) pg MCHC (32.2-35.5) g/dL RDW (11.7-14.4) % Plt Count (182-369) x10^3/uL MPV (9.4-12.3) fL Gran % (34.0-71.1) % Immature Gran % (Auto) (0.001-0.429) % Nucleat RBC Rel Count (0.00-0.2) % Eos # (Auto) (0.04-0.36) x10^3/uL Immature Gran # (Auto) (0.001-0.031) x10^3u/L Absolute Lymphs (auto) (1.18-3.74) x10^3/uL Absolute Monos (auto) (0.24-0.86) x10^3/uL Absolute Nucleated RBC (0.00-0.012) x10^3u/L Lymphocytes % (19.3-51.7) % Monocytes % (4.7-12.5) % Eosinophils % (0.7-5.8) % Basophils % (0.1-1.2) % Absolute Granulocytes (1.56-6.13) x10^3/uL Basophils # (0.01-0.08) x10^3/uL D-Dimer 0.93 H* (0.0-0.50) mg/L Sodium 138 (135-145) mmol/L Potassium 4.6 (3.5-5.1) mmol/L Chloride 95 L (98-107) mmol/L Carbon Dioxide 32 H (22-30) mmol/L Anion Gap 16.3 H (5-15) MEQ/L BUN 41 H (7-17) mg/dL Creatinine 1.93 H (0.52-1.04) mg/dL Estimated GFR 26.5 ML/MIN Glucose 118 H (74-106) mg/dL Calcium 10.4 H (8.4-10.2) mg/dL Total Bilirubin 1.00 (0.2-1.3) mg/dL AST 77 H (14-36) U/L ALT 42 H (0-35) U/L Alkaline Phosphatase 171 H (38-126) U/L Troponin I 0.012 (0.000-0.033) ng/mL NT-Pro-B Natriuret Pep 333 (<300) pg/mL Serum Total Protein 7.5 (6.3-8.2) g/dL Albumin 4.9 (3.5-5.0) g/dL 12/14/24 Range/Units 16:03 WBC 9.5 (3.98-10.04) x10^3/uL RBC 4.72 (3.93-5.22) x10^6/uL Hgb 13.9 (11.2-15.7) g/dL Hct 43.1 (34.1-44.9) % MCV 91.3 (79.4-94.8) fL MCH 29.4 (25.6-32.2) pg MCHC 32.3 (32.2-35.5) g/dL RDW 14.8 H (11.7-14.4) % Plt Count 228 (182-369) x10^3/uL MPV 10.3 (9.4-12.3) fL Gran % 72.8 H (34.0-71.1) % Immature Gran % (Auto) 0.6 H (0.001-0.429) % Nucleat RBC Rel Count 0.0 (0.00-0.2) % Eos # (Auto) 0.23 (0.04-0.36) x10^3/uL Immature Gran # (Auto) 0.06 H (0.001-0.031) x10^3u/L Absolute Lymphs (auto) 1.50 (1.18-3.74) x10^3/uL Absolute Monos (auto) 0.74 (0.24-0.86) x10^3/uL Absolute Nucleated RBC 0.00 (0.00-0.012) x10^3u/L Lymphocytes % 15.7 L (19.3-51.7) % Monocytes % 7.8 (4.7-12.5) % Eosinophils % 2.4 (0.7-5.8) % Basophils % 0.7 (0.1-1.2) % Absolute Granulocytes 6.93 H (1.56-6.13) x10^3/uL Basophils # 0.07 (0.01-0.08) x10^3/uL D-Dimer (0.0-0.50) mg/L Sodium (135-145) mmol/L Potassium (3.5-5.1) mmol/L Chloride (98-107) mmol/L Carbon Dioxide (22-30) mmol/L Anion Gap (5-15) MEQ/L BUN (7-17) mg/dL Creatinine (0.52-1.04) mg/dL Estimated GFR ML/MIN Glucose (74-106) mg/dL Calcium (8.4-10.2) mg/dL Total Bilirubin (0.2-1.3) mg/dL AST (14-36) U/L ALT (0-35) U/L Alkaline Phosphatase (38-126) U/L Troponin I (0.000-0.033) ng/mL NT-Pro-B Natriuret Pep (<300) pg/mL Serum Total Protein (6.3-8.2) g/dL Albumin (3.5-5.0) g/dL - Progress Progress: improved Air Movement: good Progress Note: 74-year-old female with significant cardiovascular risk factors presents to our ED for evaluation of chest pain and shortness of breath. EKG sinus rhythm. Initial troponin negative. Patient does have a history of chronic renal insufficiency. D-dimer positive. Patient not a candidate for CTA secondary to kidney function. However patient received a renal dose of weight-based Lovenox. Patient would likely require a VQ scan as an inpatient. Patient agrees to admission to [facility] for further evaluation and treatment. Case discussed with hospitalist who accepts admission to observation at 5:05 PM. Patient received low dose aspirin and nitroglycerin paste prior to floor admission. Portions of this note were created with voice recognition technology. There may be grammatical, spelling, punctuation or sound alike errors Complexity of problem addressed is moderate acute complicated. No critical care time. Complexity of data reviewed and analyzed is extensive. Test ordered test reviewed results analyzed and correlated clinically with history and physical exam. Management discussed with hospitalist who accepts admission to observation. Risk of complication and or risk of morbidity/mortality of patient management is high. Patient requires hospitalization for further evaluation and treatment. Vital stable. Time spent to admit patient approximately 20 minutes. Plan of care established for shared decision making. No social determinants of health present to impede follow-up. Portions of this note were created with voice recognition technology. There may be grammatical, spelling, punctuation or sound alike errors 12/14/24 17:07 Blood Culture(s) Obtained: No Antibiotics given: No Discussed with Dr.: Sun (5:05 PM) Counseled pt/family regarding: lab results, diagnosis, rad results - Departure Departure Disposition: Observation Clinical Impression: Chest pain, ACS (acute coronary syndrome), Elevated d-dimer, Chronic renal insufficiency Condition: Stable Critical Care Time: No Referrals: DANIELA LAINEZ NP [Primary Care Provider, [facility]] - Follow up/PCP as directed
[2024-12-14 16:04] LABS: Absolute Neutrophil Ct (ANC) 6.93 x10^3/uL (1.56-6.13); BASOPHIL % 0.7 % (0.1-1.2); Basophil (Absolute #) 0.07 x10^3/uL (0.01-0.08); Eosinophil % 2.4 % (0.7-5.8); Eosinophil (Absolute #) 0.23 x10^3/uL (0.04-0.36); Hematocrit 43.1 % (34.1-44.9); Hemoglobin 13.9 g/dL (11.2-15.7); IMMATURE GRAN # 0.06 x10^3u/L (0.001-0.031); IMMATURE GRAN % 0.6 % (0.001-0.429); Lymphocytes % 15.7 % (19.3-51.7); Mean Cell Volume 91.3 fL (79.4-94.8); Mean Corpuscular Hemoglobin 29.4 pg (25.6-32.2); Mean Corpuscular Hgb Concent. 32.3 g/dL (32.2-35.5); Mean Platelet Volume 10.3 fL (9.4-12.3); Monocyte (Absolute #) 0.74 x10^3/uL (0.24-0.86); Monocytes % 7.8 % (4.7-12.5); Neutrophil % 72.8 % (34.0-71.1); Platelet Count 228 x10^3/uL (182-369); Red Blood Count 4.72 x10^6/uL (3.93-5.22); Red Cell Distribution Width 14.8 % (11.7-14.4); White Blood Count 9.5 x10^3/uL (3.98-10.04)
[2024-12-14 16:27] LABS: ALBUMIN 4.9 g/dL (3.5-5.0); ANION GAP 16.3 MEQ/L (5-15); Calcium 10.4 mg/dL (8.4-10.2); Creatinine 1 1.93 mg/dL (0.52-1.04); EST GLOMERULAR FILTRATION RATE 26.5 ML/MIN; Total Protein 7.5 g/dL (6.3-8.2)
[2024-12-14 16:36] LABS: Potassium 4.6 mmol/L (3.5-5.1)
[2024-12-14] MEDS ORDERED: ENOXAPARIN SODIUM SQ ONE ×2 (16:52→16:58)
[2024-12-14] MEDS: ENOXAPARIN SODIUM SQ ONE (17:09)
[2024-12-14] MEDS ORDERED: NITRO-BID 2% UD PACKETS ONE (17:11)
[2024-12-14] MEDS: NITRO-BID 2% UD PACKETS TOP ONE (17:12)
[2024-12-14] MEDS: ECOTRIN 81 MG PO ONE (17:17)
--- NOTE | 2024-12-14 17:56 | PCM.HP ---
History of Present Illness - Chief Complaint Chief Complaint: Chest pain, ACS Date: 12/14/24 History of Present Illness: is a 74 year old female with PMHX of peripheral neuropathy, migraines, HTN, asthma, hypothyroidism, OA, IBS, chronic elevated liver enzymes, and gout. She presented to emergency department as a referral from her primary care doctor for evaluation of chest pain that started 3 days ago. Patient reports chest pain is substernal but radiates to her left breast. 2 days ago she was very edematous and SOB and doubled her lasix dose for 2 days and edema improved. She did this on her own w/o reccomendation from a provider. However she reports she knew what to do as her healthcare financial analyst has told her to do this in the past. No associated nausea vomiting or diaphoresis. Symptoms are mild to moderate in intensity. No specific worsening or improving factors. Patient voices no other complaints or concerns at this time. CXR pending, Liver enzymes elevated but chronic), CKD at baseline, Ca+ 10.4, D-Dimer 0.93. Will order VQ scan in AM. Will trend trops. - Review of Systems Constitutional: No Fever, No Chills Eyes: No Symptoms Ears, Nose, & Throat: No Symptoms Respiratory: No Cough, No Short Of Breath Cardiac: Chest Pain, No Edema, No Syncope Abdominal/Gastrointestinal: No Abdominal Pain, No Nausea, No Vomiting, No Diarrhea Genitourinary Symptoms: No Dysuria Musculoskeletal: No Back Pain, No Neck Pain Skin: No Rash Neurological: No Dizziness, No Focal Weakness, No Sensory Changes Psychological: No Symptoms Endocrine: No Symptoms Hematologic/Lymphatic: No Symptoms Immunological/Allergic: No Symptoms Medications & Allergies Home Medications: Home Medication List ALPRAZolam 0.25 MG [xanAX 0.25 MG] 0.25 mg PO DAILY PRN 03/25/19 [History Confirmed 12/14/24] Albuterol Sulfate [Proair Hfa] 90 mcg IH BID 03/25/19 [History Confirmed 12/14/24] Levothyroxine Sodium 50 Mcg [Synthroid 50 Mcg] 50 mcg PO 0500 03/25/19 [History Confirmed 12/14/24] Montelukast Sodium 10 mg [Singulair 10 MG] 10 mg PO DAILY 03/25/19 [History Confirmed 12/14/24] Potassium Chloride Tab* [Klor Con] 30 meq PO BID 03/25/19 [History Confirmed 12/14/24] Prednisone 5 mg [Deltasone 5 mg] 5 mg PO DAILY 03/25/19 [History Confirmed 12/14/24] Promethazine HCl 25 mg [Phenergan 25 mg] 25 mg PO TID PRN 03/25/19 [History Confirmed 12/14/24] Simvastatin 10 mg [Zocor 10MG] 10 mg PO HS 03/25/19 [History Confirmed 12/14/24] Acetaminophen 325 mg [Tylenol 325 mg] 2 tab PO Q4HPRN PRN 12/03/22 [History Confirmed 12/14/24] Albuterol Sulfate [Proair Respiclick] 2 puffs IH Q4HPRN PRN 12/03/22 [History Confirmed 12/14/24] Docusate Sodium 100 mg [Docusate Sodium 100 MG] 100 mg PO DAILY 12/03/22 [History Confirmed 12/14/24] Duloxetine HCl 1 cap PO DAILY 12/03/22 [History Confirmed 12/14/24] Hydrocodone/Acetaminophen [Hydrocodone-Acetamin 10-325 mg] 1 tab PO TIDPRN PRN 12/03/22 [History Confirmed 12/14/24] Magnesium Oxide 400 mg [Mag-Ox 400] 3 cap PO BID 12/03/22 [History Confirmed 12/14/24] Metoprolol Tartrate 50 mg [Lopressor 50 MG] 25 mg PO BID 12/03/22 [History Confirmed 12/14/24] Multivitamin/Iron/Folic Acid [Centrum Adults Tablet] 1 tab PO DAILY 12/03/22 [History Confirmed 12/14/24] Nystatin Cream 30 gm [Nystop 30 gm Cream] 1 applic TOP BID PRN PRN 12/03/22 [History Confirmed 12/14/24] PANTOPRAZOLE 40 mg Tablet [Protonix 40MG Tablet] 1 tab PO HS 12/03/22 [History Confirmed 12/14/24] Pregabalin 50 mg [Lyrica 50MG] 50 mg PO BID 12/03/22 [History Confirmed 12/14/24] Torsemide 50 mg PO BID 12/03/22 [History Confirmed 12/14/24] Vitamin B Complex 1 tab PO DAILY 12/03/22 [History Confirmed 12/14/24] Ropinirole 2Mg [Requip 2Mg Tab] 2 - 6 mg PO HS 04/16/23 [History Confirmed 12/14/24] Allergies/Adverse Reactions: Allergies Allergy/AdvReac Type Severity Reaction Status Date / Time bacitracin Allergy Mild rash Verified 03/27/22 11:15 [From Neosporin swelling ([id number])] bacitracin zinc Allergy Mild rash Verified 12/03/22 08:10 [From Neosporin swelling ([id number])] lidocaine Allergy Mild swelling Verified 12/03/22 08:10 red and inflamed neomycin sulfate Allergy Mild rash Verified 12/03/22 08:10 [From Neosporin swelling ([id number])] Penicillins Allergy Mild rash Verified 03/27/22 11:15 itching polymyxin B Allergy Mild rash Verified 12/03/22 08:10 [From Neosporin swelling ([id number])] Sulfa (Sulfonamide Allergy Mild rash Verified 12/03/22 08:10 Antibiotics) itching lisinopril Allergy facial Verified 12/03/22 08:10 swelling omeprazole [From Prilosec] Allergy Verified 12/03/22 08:10 omeprazole magnesium Allergy Verified 12/03/22 08:10 [From Prilosec] procaine HCl [From Novocain] Allergy swelling Verified 12/03/22 08:10 red inflamed - Past Medical History Past Medical History: Yes Neurological History: Migraines, Peripheral Neuropathy ENT History: Cataracts Cardiac History: Hypertension Respiratory History: Asthma Endocrine Medical History: Hypothyroidism Musculoskelatal History: Arthritis GI Medical History: Irritable Bowel History: Renal Disease Pyscho-Social History: No Pertinent History Reproductive Disorders: No Pertinent History Comment: GOUT (73% OF HER SPINE). PSH: SCHEDULED FOR CERVICAL NECK AND BACK, BUT CANCELLED DUE TO CAREGIVER FOR . - Past Surgical History Past Surgical History: Yes Neuro Surgical History: No Pertinent History Cardiac History: Cardiac Catheterization Respiratory Surgery: No Pertinent History GI Surgical History: Cholecystectomy Genitourinary Surgical Hx: No Pertinent History Musculskeletal Surgical Hx: Joint Replacement Female Surgical History: Lumpectomy, Tubal Ligation Other Surgical History: excision x 7 to left breast/axilla and 1 to right breast Significant Family History: no pertinent family hx - Social History Smoking Status: Never smoker Exposure to second hand smoke: Yes Alcohol: None Drug Use: none - Social Determinants of Health Will the patient participate in the screening: Yes Do you worry about a steady place to live?: No Do you have any problems with any of the following?: No known problems In the past 12 months,have you had to go without utilities?: No Have you or anyone in your house had to go without enough: No Transportation Issues: No Has anyone in your support network made you feel unsafe?: No Does the patient want assistance with any of the above?: No - Physical Exam Vital Signs: Vital Signs - 24 hr Temp Pulse Pulse Resp BP BP Pulse Ox 12/14/24 17:12 96 12/14/24 17:00 65 13 165/80 98 12/14/24 16:30 67 13 142/86 100 12/14/24 16:29 69 18 142/86 97 12/14/24 16:00 97.6 F 75 16 145/80 99 12/14/24 15:48 64 98 12/14/24 15:32 97.4 F 80 16 163/99 96 Results - Labs Lab/Micro Results: Lab Results-Last 24 Hours 12/14/24 12/14/24 12/14/24 Range/Units 16:03 16:03 16:03 WBC 9.5 (3.98-10.04) x10^3/uL RBC 4.72 (3.93-5.22) x10^6/uL Hgb 13.9 (11.2-15.7) g/dL Hct 43.1 (34.1-44.9) % MCV 91.3 (79.4-94.8) fL MCH 29.4 (25.6-32.2) pg MCHC 32.3 (32.2-35.5) g/dL RDW 14.8 H (11.7-14.4) % Plt Count 228 (182-369) x10^3/uL MPV 10.3 (9.4-12.3) fL Gran % 72.8 H (34.0-71.1) % Immature Gran % (Auto) 0.6 H (0.001-0.429) % Nucleat RBC Rel Count 0.0 (0.00-0.2) % Eos # (Auto) 0.23 (0.04-0.36) x10^3/uL Immature Gran # (Auto) 0.06 H (0.001-0.031) x10^3u/L Absolute Lymphs (auto) 1.50 (1.18-3.74) x10^3/uL Absolute Monos (auto) 0.74 (0.24-0.86) x10^3/uL Absolute Nucleated RBC 0.00 (0.00-0.012) x10^3u/L Lymphocytes % 15.7 L (19.3-51.7) % Monocytes % 7.8 (4.7-12.5) % Eosinophils % 2.4 (0.7-5.8) % Basophils % 0.7 (0.1-1.2) % Absolute Granulocytes 6.93 H (1.56-6.13) x10^3/uL Basophils # 0.07 (0.01-0.08) x10^3/uL D-Dimer 0.93 H* (0.0-0.50) mg/L Sodium 138 (135-145) mmol/L Potassium 4.6 (3.5-5.1) mmol/L Chloride 95 L (98-107) mmol/L Carbon Dioxide 32 H (22-30) mmol/L Anion Gap 16.3 H (5-15) MEQ/L BUN 41 H (7-17) mg/dL Creatinine 1.93 H (0.52-1.04) mg/dL Estimated GFR 26.5 ML/MIN Glucose 118 H (74-106) mg/dL Calcium 10.4 H (8.4-10.2) mg/dL Total Bilirubin 1.00 (0.2-1.3) mg/dL AST 77 H (14-36) U/L ALT 42 H (0-35) U/L Alkaline Phosphatase 171 H (38-126) U/L Troponin I (0.000-0.033) ng/mL NT-Pro-B Natriuret Pep 333 (<300) pg/mL Serum Total Protein 7.5 (6.3-8.2) g/dL Albumin 4.9 (3.5-5.0) g/dL 12/14/24 Range/Units 16:03 WBC (3.98-10.04) x10^3/uL RBC (3.93-5.22) x10^6/uL Hgb (11.2-15.7) g/dL Hct (34.1-44.9) % MCV (79.4-94.8) fL MCH (25.6-32.2) pg MCHC (32.2-35.5) g/dL RDW (11.7-14.4) % Plt Count (182-369) x10^3/uL MPV (9.4-12.3) fL Gran % (34.0-71.1) % Immature Gran % (Auto) (0.001-0.429) % Nucleat RBC Rel Count (0.00-0.2) % Eos # (Auto) (0.04-0.36) x10^3/uL Immature Gran # (Auto) (0.001-0.031) x10^3u/L Absolute Lymphs (auto) (1.18-3.74) x10^3/uL Absolute Monos (auto) (0.24-0.86) x10^3/uL Absolute Nucleated RBC (0.00-0.012) x10^3u/L Lymphocytes % (19.3-51.7) % Monocytes % (4.7-12.5) % Eosinophils % (0.7-5.8) % Basophils % (0.1-1.2) % Absolute Granulocytes (1.56-6.13) x10^3/uL Basophils # (0.01-0.08) x10^3/uL D-Dimer (0.0-0.50) mg/L Sodium (135-145) mmol/L Potassium (3.5-5.1) mmol/L Chloride (98-107) mmol/L Carbon Dioxide (22-30) mmol/L Anion Gap (5-15) MEQ/L BUN (7-17) mg/dL Creatinine (0.52-1.04) mg/dL Estimated GFR ML/MIN Glucose (74-106) mg/dL Calcium (8.4-10.2) mg/dL Total Bilirubin (0.2-1.3) mg/dL AST (14-36) U/L ALT (0-35) U/L Alkaline Phosphatase (38-126) U/L Troponin I 0.012 (0.000-0.033) ng/mL NT-Pro-B Natriuret Pep (<300) pg/mL Serum Total Protein (6.3-8.2) g/dL Albumin (3.5-5.0) g/dL - Radiology Impressions Radiology Exams & Impressions: Radiology Procedures Category Date Time Status CHEST 1 VIEW (PORTABLE) Stat Exams 12/14/24 16:54 Taken Assessment/Plan (1) Chest pain Current Visit: Yes Status: Acute Assessment & Plan: - EKG - trops x3 - Tele - CXR - TSH - Follows Provider at [place] - BNP 333 - CBC, CMP reviewed Code(s): R07.9 - CHEST PAIN, UNSPECIFIED (2) Hypercalcemia Current Visit: Yes Status: Acute Assessment & Plan: - Ca+ 10.4 - Tele - Trend Code(s): E83.52 - HYPERCALCEMIA (3) Transaminitis Current Visit: Yes Status: Acute Assessment & Plan: - AST 77, ALT, 42 - trend - Pt states she follows a liver specialist in [place] for elevated liver enzymes and recently had an MRI for further evaluation. Code(s): R74.01 - ELEVATION OF LEVELS OF LIVER TRANSAMINASE LEVELS (4) Elevated d-dimer Current Visit: Yes Status: Acute Assessment & Plan: - D-dimer 0.93 - VQ scan in AM - Therapeutic lovenox BID Code(s): R79.89 - OTHER SPECIFIED ABNORMAL FINDINGS OF BLOOD CHEMISTRY (5) CKD (chronic kidney disease) Current Visit: No Status: Chronic Assessment & Plan: - Creat 1.93- at baseline - CMP reviewed - Follows Dr. Davila Code(s): N18.9 - CHRONIC KIDNEY DISEASE, UNSPECIFIED (6) Obesity (BMI 30-39.9) Current Visit: No Status: Chronic Assessment & Plan: - Advised diet and exercise control Code(s): E66.9 - OBESITY, UNSPECIFIED (7) HTN (hypertension) Current Visit: Yes Status: Chronic Assessment & Plan: - Continue home meds - Heart healthy diet VTE: Lovenox PPI: Protonix Next of KIN: Friend- Kenia Dixoner D/C plan: 1-2 days Code status: Full Code(s): I10 - ESSENTIAL (PRIMARY) HYPERTENSION Telemedicine Encounter - Telemedicine Encounter Telemedicine Encounter: "The entirety of this encounter was performed via Telemedicine" This visit was performed using real-time audio and video connection between my location and thepatients locationwith the assistance of a surrogateat the patients location. Written or verbal consent was obtained from the patient/guardian to perform this visit [facility]. Any patient questions regarding the telemedicine interaction were answered.
[2024-12-14] MEDS ORDERED: NORCO 10-325 MG PO PRN (18:32)
[2024-12-14] MEDS ORDERED: NON-FORMULARY ITEM (Albuterol Sulfate [Proair Respiclick] 90 MCG Aer.Pow.Ba) IH PRN (18:32)
[2024-12-14] MEDS ORDERED: NYSTOP 30 GM CREAM TOP PRN (18:32)
[2024-12-14] MEDS ORDERED: xanAX 0.25 MG PO PRN (18:32)
[2024-12-14] MEDS ORDERED: TYLENOL 325 MG PO PRN (18:32)
[2024-12-14] MEDS ORDERED: Narcan 0.4 MG/ML IV PRN (18:38)
[2024-12-14] MEDS ORDERED: Zofran 4 MG/2 ML VIAL IV PRN (18:41)
[2024-12-14] MEDS ORDERED: VENTOLIN COMMON CANISTER IH PRN (19:47)
[2024-12-14] MEDS: Advair Hfa 115/21 Common canister IH SCH (19:48)
[2024-12-14] MEDS: ENOXAPARIN SODIUM SQ SCH (21:41)
[2024-12-14] MEDS: NON-FORMULARY ITEM (Torsemide [Torsemide] 100 MG Tablet) PO SCH (21:43)
[2024-12-14] MEDS: NORCO 10-325 MG PO PRN (21:59)
[2024-12-14] MEDS: Zocor 10MG PO SCH (22:00)
[2024-12-14] MEDS ORDERED: VENTOLIN COMMON CANISTER IH SCH (22:00)
[2024-12-14] MEDS: Lopressor 50 MG PO SCH (22:00)
[2024-12-14] MEDS: REQUIP 2MG TAB PO SCH (22:01)
[2024-12-14] MEDS: Klor Con PO SCH (22:01)
[2024-12-14] MEDS: Lyrica 50MG PO SCH (22:01)
[2024-12-15 05:06] LABS: Hematocrit 39.3 % (34.1-44.9); Hemoglobin 12.5 g/dL (11.2-15.7); Mean Cell Volume 92.9 fL (79.4-94.8); Mean Corpuscular Hemoglobin 29.6 pg (25.6-32.2); Mean Corpuscular Hgb Concent. 31.8 g/dL (32.2-35.5); Mean Platelet Volume 10.5 fL (9.4-12.3); Platelet Count 201 x10^3/uL (182-369); Red Blood Count 4.23 x10^6/uL (3.93-5.22); Red Cell Distribution Width 15.2 % (11.7-14.4); White Blood Count 6.8 x10^3/uL (3.98-10.04)
[2024-12-15 05:24] LABS: ALBUMIN 4.1 g/dL (3.5-5.0); ANION GAP 11.5 MEQ/L (5-15); BILIRUBIN,TOTAL 0.7 mg/dL (0.2-1.3); Calcium 9.5 mg/dL (8.4-10.2); Creatinine 1 1.76 mg/dL (0.52-1.04); EST GLOMERULAR FILTRATION RATE 29.6 ML/MIN; Potassium 3.4 mmol/L (3.5-5.1); Total Protein 6.4 g/dL (6.3-8.2)
[2024-12-15] MEDS: SYNTHROID 50 MCG PO SCH (06:22)
[2024-12-15] MEDS ORDERED: ENOXAPARIN SODIUM SQ ONE (06:22)
[2024-12-15] MEDS ORDERED: VENTOLIN COMMON CANISTER IH PRN (07:28)
[2024-12-15 07:33] VITALS: BP 132/66; TEMP 96.9
[2024-12-15] MEDS: Klor Con PO ONE (08:17)
--- NOTE | 2024-12-15 08:34 | XRAY ---
Indication: Chest pain. Comparison: August 07, 2019 14 Portable apical lordotic chest hyperinflated and now clear. Heart not enlarged again with tortuous descending aorta. Bony thorax intact again with osteopenia and mild degenerative changes. No new/acute findings.
[2024-12-15] MEDS: Protonix 40MG Tablet PO SCH (09:34)
[2024-12-15] MEDS: DEMADEX 20 MG PO SCH (09:41)
[2024-12-15] MEDS: Docusate Sodium 100 MG PO SCH (09:43)
[2024-12-15] MEDS: Cymbalta 30 MG Capsule PO SCH (09:43)
[2024-12-15] MEDS: THERAGRAN MULTIVITAMIN PO SCH (09:43)
[2024-12-15] MEDS: DELTASONE 5 MG PO SCH (09:43)
[2024-12-15] MEDS: Lopressor 25MG Tab PO SCH (09:43)
[2024-12-15] MEDS: MAG-OX 400 PO SCH (09:43)
[2024-12-15] MEDS: Singulair 10 MG PO SCH (09:43)
[2024-12-15] MEDS: VITA-BEE WITH C PO SCH (09:49)
[2024-12-15] MEDS: ENOXAPARIN SODIUM SQ SCH (09:52)
[2024-12-15] MEDS ORDERED: NON-FORMULARY ITEM (Duloxetine Hcl [Duloxetine Hcl] 60 MG Capsule.Dr) PO SCH (10:00)
[2024-12-15] MEDS ORDERED: NON-FORMULARY ITEM (Multivitamin/Iron/Folic Acid [Centrum Adults Tablet] 1 EACH Tablet) PO SCH (10:00)
[2024-12-15] MEDS ORDERED: NON-FORMULARY ITEM (Vitamin B Complex [Vitamin B Complex] 1 EACH Tablet) PO SCH (10:00)
--- NOTE | 2024-12-15 11:03 | PCM.DS ---
Discharge Summary Date of Admission: 12/14/24 17:47 Date of Discharge: 12/15/24 Admitting Physician: ALDO BARRETO MD Primary Care Provider: DANIELA LAINEZ Allergies Allergies bacitracin [From Neosporin ([id number])] Allergy (Mild, Verified 03/27/22 11:15) rash swelling bacitracin zinc [From Neosporin ([id number])] Allergy (Mild, Verified 12/03/22 08:10) rash swelling lidocaine Allergy (Mild, Verified 12/03/22 08:10) swelling red and inflamed neomycin sulfate [From Neosporin ([id number])] Allergy (Mild, Verified 12/03/22 08:10) rash swelling Penicillins Allergy (Mild, Verified 03/27/22 11:15) rash itching polymyxin B [From Neosporin ([id number])] Allergy (Mild, Verified 12/03/22 08:10) rash swelling Sulfa (Sulfonamide Antibiotics) Allergy (Mild, Verified 12/03/22 08:10) rash itching lisinopril Allergy (Verified 12/03/22 08:10) facial swelling omeprazole [From Prilosec] Allergy (Verified 12/03/22 08:10) headache and abdominal cramping omeprazole magnesium [From Prilosec] Allergy (Verified 12/03/22 08:10) headache and abdominal cramping procaine HCl [From Novocain] Allergy (Verified 12/03/22 08:10) swelling red inflamed Hospital Summary - Hospital Course Hospital Course: 12/14 is a 74 year old female with PMHX of peripheral neuropathy, migraines, HTN, asthma, hypothyroidism, OA, IBS, chronic elevated liver enzymes, and gout. She presented to emergency department as a referral from her primary care doctor for evaluation of chest pain that started 3 days ago. Patient reports chest pain is substernal but radiates to her left breast. 2 days ago she was very edematous and SOB and doubled her lasix dose for 2 days and edema improved. She did this on her own w/o reccomendation from a provider. However she reports she knew what to do as her bow maker production has told her to do this in the past. No associated nausea vomiting or diaphoresis. Symptoms are mild to moderate in intensity. No specific worsening or improving factors. Patient voices no other complaints or concerns at this time. CXR pending, Liver enzymes elevated but chronic), CKD at baseline, Ca+ 10.4, D-Dimer 0.93. Will order VQ scan in AM. Will trend trops. 12/15 Pt resting in bed. She states she feels fine today and would like to d/c. She was to have a VQ scan today but radiology unable to do until . Pt is asymptomatic. Discussed concerning PE related sxs in detail and to return to ER if needed. She is ok with d/c home at this time. She will need to f/u OP with cardiology, nephrology, and PCP. - Vitals & Intake/Output Vital Signs: Vital Signs Temperature 96.9 F 12/15/24 07:32 Pulse Rate 68 12/15/24 07:32 Respiratory Rate 17 12/15/24 07:32 Blood Pressure 132/66 12/15/24 07:32 O2 Sat by Pulse Oximetry 95 12/15/24 07:32 Intake & Output: Intake & Output 12/12/24 12/13/24 12/14/24 12/15/24 11:59 11:59 11:59 11:59 Intake Total 120 Balance 120 Weight 109 kg - Lab Result Diagrams: 12/15/24 04:52 12/15/24 04:52 Lab Results-Last 24 Hrs: Lab Results-Last 24 Hours 12/14/24 12/14/24 12/14/24 Range/Units 16:03 16:03 16:03 WBC 9.5 (3.98-10.04) x10^3/uL RBC 4.72 (3.93-5.22) x10^6/uL Hgb 13.9 (11.2-15.7) g/dL Hct 43.1 (34.1-44.9) % MCV 91.3 (79.4-94.8) fL MCH 29.4 (25.6-32.2) pg MCHC 32.3 (32.2-35.5) g/dL RDW 14.8 H (11.7-14.4) % Plt Count 228 (182-369) x10^3/uL MPV 10.3 (9.4-12.3) fL Gran % 72.8 H (34.0-71.1) % Immature Gran % (Auto) 0.6 H (0.001-0.429) % Nucleat RBC Rel Count 0.0 (0.00-0.2) % Eos # (Auto) 0.23 (0.04-0.36) x10^3/uL Immature Gran # (Auto) 0.06 H (0.001-0.031) x10^3u/L Absolute Lymphs (auto) 1.50 (1.18-3.74) x10^3/uL Absolute Monos (auto) 0.74 (0.24-0.86) x10^3/uL Absolute Nucleated RBC 0.00 (0.00-0.012) x10^3u/L Lymphocytes % 15.7 L (19.3-51.7) % Monocytes % 7.8 (4.7-12.5) % Eosinophils % 2.4 (0.7-5.8) % Basophils % 0.7 (0.1-1.2) % Absolute Granulocytes 6.93 H (1.56-6.13) x10^3/uL Basophils # 0.07 (0.01-0.08) x10^3/uL D-Dimer 0.93 H* (0.0-0.50) mg/L Sodium 138 (135-145) mmol/L Potassium 4.6 (3.5-5.1) mmol/L Chloride 95 L (98-107) mmol/L Carbon Dioxide 32 H (22-30) mmol/L Anion Gap 16.3 H (5-15) MEQ/L BUN 41 H (7-17) mg/dL Creatinine 1.93 H (0.52-1.04) mg/dL Estimated GFR 26.5 ML/MIN Glucose 118 H (74-106) mg/dL Calcium 10.4 H (8.4-10.2) mg/dL Magnesium (1.6-2.3) mg/dL Total Bilirubin 1.00 (0.2-1.3) mg/dL AST 77 H (14-36) U/L ALT 42 H (0-35) U/L Alkaline Phosphatase 171 H (38-126) U/L Troponin I (0.000-0.033) ng/mL NT-Pro-B Natriuret Pep 333 (<300) pg/mL Serum Total Protein 7.5 (6.3-8.2) g/dL Albumin 4.9 (3.5-5.0) g/dL TSH 3rd Generation (0.470-4.680) mIU/L 12/14/24 12/14/24 12/15/24 Range/Units 16:03 20:10 00:20 WBC (3.98-10.04) x10^3/uL RBC (3.93-5.22) x10^6/uL Hgb (11.2-15.7) g/dL Hct (34.1-44.9) % MCV (79.4-94.8) fL MCH (25.6-32.2) pg MCHC (32.2-35.5) g/dL RDW (11.7-14.4) % Plt Count (182-369) x10^3/uL MPV (9.4-12.3) fL Gran % (34.0-71.1) % Immature Gran % (Auto) (0.001-0.429) % Nucleat RBC Rel Count (0.00-0.2) % Eos # (Auto) (0.04-0.36) x10^3/uL Immature Gran # (Auto) (0.001-0.031) x10^3u/L Absolute Lymphs (auto) (1.18-3.74) x10^3/uL Absolute Monos (auto) (0.24-0.86) x10^3/uL Absolute Nucleated RBC (0.00-0.012) x10^3u/L Lymphocytes % (19.3-51.7) % Monocytes % (4.7-12.5) % Eosinophils % (0.7-5.8) % Basophils % (0.1-1.2) % Absolute Granulocytes (1.56-6.13) x10^3/uL Basophils # (0.01-0.08) x10^3/uL D-Dimer (0.0-0.50) mg/L Sodium (135-145) mmol/L Potassium (3.5-5.1) mmol/L Chloride (98-107) mmol/L Carbon Dioxide (22-30) mmol/L Anion Gap (5-15) MEQ/L BUN (7-17) mg/dL Creatinine (0.52-1.04) mg/dL Estimated GFR ML/MIN Glucose (74-106) mg/dL Calcium (8.4-10.2) mg/dL Magnesium (1.6-2.3) mg/dL Total Bilirubin (0.2-1.3) mg/dL AST (14-36) U/L ALT (0-35) U/L Alkaline Phosphatase (38-126) U/L Troponin I 0.012 < 0.012 < 0.012 (0.000-0.033) ng/mL NT-Pro-B Natriuret Pep (<300) pg/mL Serum Total Protein (6.3-8.2) g/dL Albumin (3.5-5.0) g/dL TSH 3rd Generation (0.470-4.680) mIU/L 12/15/24 12/15/24 12/15/24 Range/Units 04:52 04:52 04:52 WBC 6.8 (3.98-10.04) x10^3/uL RBC 4.23 (3.93-5.22) x10^6/uL Hgb 12.5 (11.2-15.7) g/dL Hct 39.3 (34.1-44.9) % MCV 92.9 (79.4-94.8) fL MCH 29.6 (25.6-32.2) pg MCHC 31.8 L (32.2-35.5) g/dL RDW 15.2 H (11.7-14.4) % Plt Count 201 (182-369) x10^3/uL MPV 10.5 (9.4-12.3) fL Gran % (34.0-71.1) % Immature Gran % (Auto) (0.001-0.429) % Nucleat RBC Rel Count (0.00-0.2) % Eos # (Auto) (0.04-0.36) x10^3/uL Immature Gran # (Auto) (0.001-0.031) x10^3u/L Absolute Lymphs (auto) (1.18-3.74) x10^3/uL Absolute Monos (auto) (0.24-0.86) x10^3/uL Absolute Nucleated RBC (0.00-0.012) x10^3u/L Lymphocytes % (19.3-51.7) % Monocytes % (4.7-12.5) % Eosinophils % (0.7-5.8) % Basophils % (0.1-1.2) % Absolute Granulocytes (1.56-6.13) x10^3/uL Basophils # (0.01-0.08) x10^3/uL D-Dimer (0.0-0.50) mg/L Sodium 136 (135-145) mmol/L Potassium 3.4 L D (3.5-5.1) mmol/L Chloride 95 L (98-107) mmol/L Carbon Dioxide 33 H (22-30) mmol/L Anion Gap 11.5 (5-15) MEQ/L BUN 45 H (7-17) mg/dL Creatinine 1.76 H (0.52-1.04) mg/dL Estimated GFR 29.6 ML/MIN Glucose 105 (74-106) mg/dL Calcium 9.5 (8.4-10.2) mg/dL Magnesium (1.6-2.3) mg/dL Total Bilirubin 0.70 (0.2-1.3) mg/dL AST 50 H (14-36) U/L ALT 29 (0-35) U/L Alkaline Phosphatase 146 H (38-126) U/L Troponin I (0.000-0.033) ng/mL NT-Pro-B Natriuret Pep (<300) pg/mL Serum Total Protein 6.4 (6.3-8.2) g/dL Albumin 4.1 (3.5-5.0) g/dL TSH 3rd Generation 1.681 (0.470-4.680) mIU/L 12/15/24 Range/Units 04:52 WBC (3.98-10.04) x10^3/uL RBC (3.93-5.22) x10^6/uL Hgb (11.2-15.7) g/dL Hct (34.1-44.9) % MCV (79.4-94.8) fL MCH (25.6-32.2) pg MCHC (32.2-35.5) g/dL RDW (11.7-14.4) % Plt Count (182-369) x10^3/uL MPV (9.4-12.3) fL Gran % (34.0-71.1) % Immature Gran % (Auto) (0.001-0.429) % Nucleat RBC Rel Count (0.00-0.2) % Eos # (Auto) (0.04-0.36) x10^3/uL Immature Gran # (Auto) (0.001-0.031) x10^3u/L Absolute Lymphs (auto) (1.18-3.74) x10^3/uL Absolute Monos (auto) (0.24-0.86) x10^3/uL Absolute Nucleated RBC (0.00-0.012) x10^3u/L Lymphocytes % (19.3-51.7) % Monocytes % (4.7-12.5) % Eosinophils % (0.7-5.8) % Basophils % (0.1-1.2) % Absolute Granulocytes (1.56-6.13) x10^3/uL Basophils # (0.01-0.08) x10^3/uL D-Dimer (0.0-0.50) mg/L Sodium (135-145) mmol/L Potassium (3.5-5.1) mmol/L Chloride (98-107) mmol/L Carbon Dioxide (22-30) mmol/L Anion Gap (5-15) MEQ/L BUN (7-17) mg/dL Creatinine (0.52-1.04) mg/dL Estimated GFR ML/MIN Glucose (74-106) mg/dL Calcium (8.4-10.2) mg/dL Magnesium 2.2 (1.6-2.3) mg/dL Total Bilirubin (0.2-1.3) mg/dL AST (14-36) U/L ALT (0-35) U/L Alkaline Phosphatase (38-126) U/L Troponin I (0.000-0.033) ng/mL NT-Pro-B Natriuret Pep (<300) pg/mL Serum Total Protein (6.3-8.2) g/dL Albumin (3.5-5.0) g/dL TSH 3rd Generation (0.470-4.680) mIU/L - Radiology Exams Ordered Rad Exams-Entire Visit: Radiology Procedures Category Date Time Status CHEST 1 VIEW (PORTABLE) Stat Exams 12/14/24 16:54 Completed PULMONARY PERF VENTILATION [NUCMED] Routine Exams 12/17/24 09:12 Ordered - Procedures and Test Procedures and Tests throughout Hospitalization: Therapy Orders & Screens 12/14/24 20:15 Respiratory Therapy Assessment DAILY Comment: Diagnosis: Chest pain, ACS Discharge Exam General Appearance: no apparent distress, alert Neurologic Exam: alert, oriented x 3, cooperative, normal mood/affect, nml cerebellar function, sensation nml, No motor deficits Eye Exam: PERRL, EOMI, eyes nml inspection Ears, Nose, Throat Exam: normal ENT inspection, pharynx normal, moist mucous membranes Neck Exam: normal inspection, non-tender, supple, full range of motion Respiratory Exam: normal breath sounds, lungs clear, No respiratory distress Cardiovascular Exam: regular rate/rhythm, normal heart sounds Gastrointestinal/Abdomen Exam: soft, No tenderness, No mass Pelvic Exam: deferred Rectal Exam: deferred Back Exam: normal inspection, normal range of motion, No CVA tenderness, No vertebral tenderness Extremity Exam: normal inspection, normal range of motion Skin Exam: normal color, warm, dry Final Diagnosis/Problem List - Final Discharge Diagnosis/Problem (1) Chest pain Current Visit: Yes Status: Acute Code(s): R07.9 - CHEST PAIN, UNSPECIFIED (2) Hypercalcemia Current Visit: Yes Status: Acute Code(s): E83.52 - HYPERCALCEMIA (3) Transaminitis Current Visit: Yes Status: Acute Code(s): R74.01 - ELEVATION OF LEVELS OF LIVER TRANSAMINASE LEVELS (4) Elevated d-dimer Current Visit: Yes Status: Acute Code(s): R79.89 - OTHER SPECIFIED ABNORMAL FINDINGS OF BLOOD CHEMISTRY (5) CKD (chronic kidney disease) Current Visit: No Status: Chronic Code(s): N18.9 - CHRONIC KIDNEY DISEASE, UNSPECIFIED (6) Obesity (BMI 30-39.9) Current Visit: No Status: Chronic Code(s): E66.9 - OBESITY, UNSPECIFIED (7) HTN (hypertension) Current Visit: Yes Status: Chronic Assessment & Plan: (1) Chest pain Current Visit: Yes Status: Acute Assessment & Plan: - EKG - trops x3 negative - Tele - CXR - TSH WNL - Follows Provider at [facility] - BNP 333 - CBC, CMP reviewed Code(s): R07.9 - CHEST PAIN, UNSPECIFIED (2) Hypercalcemia Current Visit: Yes Status: Acute Assessment & Plan: - Ca+ 10.4 - Tele - Trend 12/15 - Ca+ 9.5- WNL Code(s): E83.52 - HYPERCALCEMIA (3) Transaminitis Current Visit: Yes Status: Acute Assessment & Plan: - AST 77, ALT, 42 - trend - Pt states she follows a liver specialist in [place] for elevated liver enzymes and recently had an MRI for further evaluation. 12/15 - AST 50, ALT 50- f/u with specialist as scheduled Code(s): R74.01 - ELEVATION OF LEVELS OF LIVER TRANSAMINASE LEVELS (4) Elevated d-dimer Current Visit: Yes Status: Acute Assessment & Plan: - D-dimer 0.93 - VQ scan in AM - Therapeutic lovenox BID 12/15 - Unable to VQ scan until per radiology - Discussed with pt and will d/c today. - Strong warnings and education provided on sxs associated with PE and to return to ER for any concerns. - She denies CP and SOB today. Code(s): R79.89 - OTHER SPECIFIED ABNORMAL FINDINGS OF BLOOD CHEMISTRY (5) CKD (chronic kidney disease) Current Visit: No Status: Chronic Assessment & Plan: - Creat 1.93- at baseline - CMP reviewed - Follows Dr. Davila 12/15 - Creat 1.76- improved Code(s): N18.9 - CHRONIC KIDNEY DISEASE, UNSPECIFIED (6) Obesity (BMI 30-39.9) Current Visit: No Status: Chronic Assessment & Plan: - Advised diet and exercise control Code(s): E66.9 - OBESITY, UNSPECIFIED (7) HTN (hypertension) Current Visit: Yes Status: Chronic Assessment & Plan: - Continue home meds - Heart healthy diet Code(s): I10 - ESSENTIAL (PRIMARY) HYPERTENSION Code(s): I10 - ESSENTIAL (PRIMARY) HYPERTENSION (8) Hypokalemia Current Visit: Yes Status: Acute Assessment & Plan: - K+ 3.4- replaced - F/U OP for repeat labs Code(s): E87.6 - HYPOKALEMIA - Discharge Discharge Date: 12/15/24 Disposition: Home, Self-Care Condition: Stable Prescriptions: Continue Montelukast Sodium 10 mg [Singulair 10 MG] 10 mg PO DAILY Albuterol Sulfate [Proair Hfa] 90 mcg IH BID ALPRAZolam 0.25 MG [xanAX 0.25 MG] 0.25 mg PO DAILY PRN PRN Reason: Anxiety Levothyroxine Sodium 50 Mcg [Synthroid 50 Mcg] 50 mcg PO 0500 Simvastatin 10 mg [Zocor 10MG] 10 mg PO HS Potassium Chloride Tab* [Klor Con] 30 meq PO BID Promethazine HCl 25 mg [Phenergan 25 mg] 25 mg PO TID PRN PRN Reason: Nausea Prednisone 5 mg [Deltasone 5 mg] 5 mg PO DAILY Torsemide 50 mg PO BID Pregabalin 50 mg [Lyrica 50MG] 50 mg PO BID PANTOPRAZOLE 40 mg Tablet [Protonix 40MG Tablet] 1 tab PO HS Nystatin Cream 30 gm [Nystop 30 gm Cream] 1 applic TOP BID PRN PRN PRN Reason: Redness/Irritation Vitamin B Complex 1 tab PO DAILY Multivitamin/Iron/Folic Acid [Centrum Adults Tablet] 1 tab PO DAILY Metoprolol Tartrate 50 mg [Lopressor 50 MG] 25 mg PO BID Hydrocodone/Acetaminophen [Hydrocodone-Acetamin 10-325 mg] 1 tab PO TIDPRN PRN PRN Reason: Pain Docusate Sodium 100 mg [Docusate Sodium 100 MG] 100 mg PO DAILY Albuterol Sulfate [Proair Respiclick] 2 puffs IH Q4HPRN PRN PRN Reason: Shortness Of Breath/Wheezing Acetaminophen 325 mg [Tylenol 325 mg] 2 tab PO Q4HPRN PRN PRN Reason: Pain Duloxetine HCl 1 cap PO DAILY Ropinirole 2Mg [Requip 2Mg Tab] 2 - 6 mg PO HS Fluticasone Propion/Salmeterol [Fluticasone-Salmeterol 250-50] 1 each IH BID Allopurinol 100 mg [Zyloprim 100 mg] 100 mg PO HS Allopurinol 300 mg [Zyloprim 300 mg] 300 mg PO QAM Magnesium Oxide 500 mg PO DAILY Follow up with: DANIELA LAINEZ NP [Primary Care Provider, [facility]]
[2024-12-15 17:30] VITALS: PULSE 75; RESP 16; O2SAT 98
== END 2024-12-15 11:44 | disposition home or self-care (01) ==
LOC: ED 15:29 → MED SURG 17:47
PROVIDERS: ADMIT Internal Medicine; ATTEND Internal Medicine
DX: R07.9 Chest pain, unspecified (principal); E83.52 Hypercalcemia; R74.01 Elevation of levels of liver transaminase levels; E03.9 Hypothyroidism, unspecified; R79.89 Other specified abnormal findings of blood chemistry; I12.9 Hypertensive chronic kidney disease with stage 1 through stage 4 chronic kidney disease, or unspecified chronic kidney disease; N18.9 Chronic kidney disease, unspecified; E66.9 Obesity, unspecified; Z79.899 Other long term (current) drug therapy
CPT/HCPCS: 36415; 71045; 80053; 83735; 83880; 84443; 84484; 85025; 85027; 85379; 93005; 93041; 93268; 94640; 94760; 99285; G0378; Q3014; 99284; J1650; A9270-GY